=== PATIENT | male | born 1935 | race Caucasian/White ===

== ENCOUNTER → 2016-07-19 | Outpatient (CLI) | payer OTHER ==
[~2016-07-19] MED LIST: CALC-20 PO; SULF500T36 PO
[2016-07-19 12:14] LABS: BASO % 0.3 %; BASO ABS # 0.02 K/uL (0-0.2); COMPLETE YES; EOS % 1.5 %; HEMATOCRIT 42.7 % (42-52); IG% 0.3 %; LYMPH % 24.3 %; LYMPH ABS # 1.47 K/uL (1.2-3.4); MEAN CELL VOLUME 92.4 fL (80-100); MEAN CORPUSCULAR HEMOGLOBIN 31.8 pg (25-34); MEAN CORPUSCULAR HGB CONC 34.4 g/dl (32-36); MONO % 13.9 %; NEUT % 59.7 %; PLATELET COUNT 142 K/uL (130-400); RED BLOOD COUNT 4.62 M/uL (4.7-6.1); WHITE BLOOD COUNT 6.04 K/uL (4.8-10.8)
[2016-07-19 12:25] LABS: BLOOD UREA NITROGEN 14 mg/dl (7-18); BUN/CREATININE RATIO 14.8 (10-20); CARBON DIOXIDE 28 mmol/L (21-32); CHLORIDE 104 mmol/L (98-107); CREATININE 0.95 mg/dl (0.60-1.40); GLUCOSE 129 mg/dl (70-99); SODIUM 141 mmol/L (136-145)
[2016-07-19 12:35] LABS: CALCIUM 9.3 mg/dl (8.5-10.1)
== END | disposition home or self-care (01) ==
LOC: C.LABBFT 09:47
PROVIDERS: ATTEND Internal Medicine
DX: I10 Essential (primary) hypertension (principal)

== ENCOUNTER → 2017-05-16 | Outpatient (CLI) | payer OTHER ==
[2017-05-16 12:41] LABS: BASO % 0.3 %; BASO ABS # 0.02 K/uL (0-0.2); EOS % 1.2 %; EOS ABS # 0.07 K/uL (0-0.5); HEMOGLOBIN 14.9 g/dL (14.0-18.0); IG# 0.01 K/uL (0.00-0.02); LYMPH % 26.6 %; LYMPH ABS # 1.54 K/uL (1.2-3.4); MEAN CELL VOLUME 92.2 fL (80-100); MEAN CORPUSCULAR HEMOGLOBIN 31.2 pg (25-34); MEAN CORPUSCULAR HGB CONC 33.9 g/dl (32-36); MEAN PLATELET VOLUME 10.1 fL (7.4-10.4); MONO % 13.1 %; MONO ABS # 0.76 K/uL (0.11-0.59); NEUT % 58.6 %; NEUT ABS # 3.38 K/uL (1.4-6.5); PLATELET COUNT 131 K/uL (130-400); RED CELL DISTRIBUTION WIDTH CV 13.5 % (11.5-14.5); RED CELL DISTRIBUTION WIDTH SD 45.4 fL (36.4-46.3); WHITE BLOOD COUNT 5.78 K/uL (4.8-10.8)
[2017-05-16 12:50] LABS: BLOOD UREA NITROGEN 21 mg/dl (7-18); CALCIUM 9.9 mg/dl (8.5-10.1); CARBON DIOXIDE 28 mmol/L (21-32); CREATININE 1.15 mg/dl (0.60-1.40); GLUCOSE 119 mg/dl (70-99); POTASSIUM 4.3 mmol/L (3.5-5.1); SODIUM 138 mmol/L (136-145)
[2017-05-16 12:55] LABS: HEMOGLOBIN A1C 5.6 % (4.5-5.6)
[2017-05-16 13:08] LABS: CHOLESTEROL 137 mg/dl (0-200); LDL CHOLESTEROL CALCULATED 73 mg/dl
== END | disposition home or self-care (01) ==
LOC: C.LABBFT 09:40
PROVIDERS: ATTEND Internal Medicine
DX: I10 Essential (primary) hypertension (principal)

== ENCOUNTER 2018-04-08 12:31 | Observation (INO) ==
[2018-04-08 13:30] LABS: Basophils # (auto) 0.01 K/uL (0-0.2); Basophils % (auto) 0.2 %; Eosinophils # (auto) 0.08 K/uL (0-0.5); Eosinophils % (auto) 1.3 %; Hematocrit (blood only) 40.2 % (42-52); Hemoglobin 13.9 g/dL (14.0-18.0); Immature Granulocytes # (auto) 0.01 K/uL (0.00-0.02); Immature Granulocytes % (auto) 0.2 %; Lymphocytes # (auto) 1.14 K/uL (1.2-3.4); Mean Corpuscular Hgb Conc 34.6 g/dL (32-36); Mean Corpuscular Volume 93.5 fL (80-100); Mean Platelet Volume 9.6 fL (7.4-10.4); Monocytes # (auto) 0.87 K/uL (0.11-0.59); Monocytes % (auto) 14.5 %; Neutrophils # (auto) 3.89 K/uL (1.4-6.5); Neutrophils % (auto) 64.8 %; Platelet Count 129 K/uL (130-400); RDW Coefficient of Variation 13.3 % (11.5-14.5); RDW Standard Deviation 45.6 fL (36.4-46.3)
--- NOTE | 2018-04-08 13:37 | CT Scan Report ---
CT head/brain wo con CLINICAL HISTORY: Stroke evaluation COMPARISON STUDY: 03/15/2015 TECHNIQUE: Axial CT of the brain is performed from the vertex to the skull base. IV contrast was not administered for this examination. A dose lowering technique was utilized adhering to the principles of ALARA. CT DOSE: 537.48 mGy.cm FINDINGS: No intra or extra-axial mass lesions are visualized. There is no CT evidence of acute cortical infarc tion. There is no evidence of midline shift. There is no acute hemorrhage. No calvarial fractures ar e visualized. There are patchy white matter hypodensities likely on a small vessel basis. There is no evidence of pathologic ventricular dilatation. There is no evidence of acute sinusitis IMPRESSION: No acute intracranial findings Electronically signed by: Jalen Hurd M.D. 04/08/2018 1:35 PM
[2018-04-08 13:40] LABS: INR 1.1 (0.9-1.1); Partial Thromboplastin Time 25.9 Seconds (21.0-31.0); Prothrombin Time 11.4 Seconds (9.0-12.0)
[2018-04-08 13:48] LABS: Alanine Aminotransferase 27 U/L (12-78); Albumin Level 3.9 gm/dl (3.4-5.0); Aspartate Aminotransferase 22 U/L (15-37); BUN Creatinine Ratio 14.4 (10-20); Bilirubin Direct 0.2 mg/dl (0-0.2); Blood Urea Nitrogen 15 mg/dl (7-18); Calcium 8.5 mg/dl (8.5-10.1); Carbon Dioxide 30 mmol/L (21-32); Chloride 103 mmol/L (98-107); Creatinine Clr Calc Pharmacy 63.4 ml/min; Est GFR (African American) 75.2; Est GFR (Non-African American) 64.9; Glucose 160 mg/dl (70-99); Magnesium 2.1 mg/dl (1.8-2.4); Potassium 3.6 mmol/L (3.5-5.1); Sodium 139 mmol/L (136-145)
--- NOTE | 2018-04-08 13:48 | XRay Report ---
XR chest 1V portable HISTORY: 82 years-old Male left sided numbness acute atypical chest pain with left-sided numbness COMPARISON: Scapula radiographs 09/26/2011 TECHNIQUE: Portable AP view of the chest FINDINGS: Cardiac silhouette is mildly enlarged. Mild pulmonary vascular congestion with calcification of the t horacic aortic arch. No pneumothorax, pleural effusion or overt pulmonary edema. Subsegmental bibasil ar opacities suggest atelectasis. Degenerative changes of the shoulders and spine. IMPRESSION: Cardiomegaly with mild pulmonary vascular congestion. The above report was generated using voice recognition software. It may contain grammatical, syntax o r spelling errors. Electronically signed by: Gabriel Toscano M.D. 04/08/2018 1:47 PM
[2018-04-08 13:53] LABS: Alkaline Phosphatase 56 U/L (45-117); Bilirubin,Total 0.8 mg/dl (0.2-1); Total Protein 7.4 gm/dl (6.4-8.2); Troponin I < 0.015 ng/ml (0-0.045)
--- NOTE | 2018-04-08 17:08 | History & Physical Report ---
Date of Service April 08, 2018 Assessment & Plan (1) Neurological symptoms: - Admit to same day surgery center with tele for observation - Check B12, folate and Lymes - Neuro consultation for further workup and recs - CT head is negative for acute findings, neuro exam is without acute findings. Consider MRI brain if neurological changes/sx worsen. - EKG reviewed and is negative. - Initial troponin is negative, will check one more set to r/o cardiac involvement. no cardiac sx to warrant echo at this time. (2) HTN (hypertension): - BP slightly elevated due to anxiety from being in hospital setting, continue indapamide 1.25 mg daily, controls BP well as an outpatient per record review. (3) Polyneuropathy: - Minimal symptoms but occasionally has numbness in his feet, the sensation which he complains of upon admission is not the same. - Does not use assistive devices for ambulation, lives independently - PT/OT consults (4) Hx of prostatic malignancy: - 10 years ago, s/p external beam radiation and radioactive seed implantation. No lower urinary tract sx. - PSA followed as outpatient, last was 0.022. 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 Pt is unable to clearly describe how he feels, but notes feeling extremely anxious and worried a few times earlier this morning and thought he needed to be seen. The sensation seems to come and go slightly, and is present during my exam. He denies pain, tingling, burning, itching, numbness or weakness. Pt was in his normal state of health and went to a store yesterday. He typically walks the inside perimeter of a large grocery-like store on a daily basis but did not today. He notes this strange sensation happened once many years ago, and that a complete workup was negative. He follows closely with his PCP, Dr. Panda as an outpatient. He denies any other acute symptoms but is wishing to stay in the hospital overnight for monitoring. Imaging is negative for acute findings. His vitals are fairly stable except for slightly elevated BP. BMP is essentially unremarkable. CBC is also WNL. Allergies Allergy/AdvReac Type Severity Reaction Status Date / Time No Known Allergies Allergy Unverified 04/08/18 13:26 Home Medications Home Medications Medication Instructions Recorded Confirmed Type calcium carbonate-vitamin D3 1 tab PO DAILY 04/08/18 04/08/18 History [Calcium 600 + D(3)] celecoxib [Celebrex] 200 mg PO DAILY 04/08/18 04/08/18 History indapamide 1.25 mg PO QAM 04/08/18 04/08/18 History sulfasalazine 2,000 mg PO BID 04/08/18 04/08/18 History Past Med/Surg History Medical History Regional colitis Lumbosacral radiculopathy Hx of prostatic malignancy Polyneuropathy HTN (hypertension) Neurological symptoms (Acute) HTN (hypertension) (Chronic) Chest pain (Resolved) Surgical History History of tonsillectomy and adenoidectomy Hx of cataract surgery Family History Mother HX: breast cancer Father DM II (diabetes mellitus, type II), controlled Benign essential HTN Social History Feels Safe at Home: Yes Smoking Status: Former smoker Review of Systems All systems reviewed & are unremarkable except as noted in HPI & below Neurologic: no gait abnormality, no unsteadiness, no falls, no generalized weakness, no paralysis, no numbness, no radiating pain, no tremor(s), no abnormal movements, no seizure-like activity, no dizziness, no syncope, no headache(s) and no abnormal speech Physical Exam 2 Vital Signs (Past 24 Hours): Last Vital Signs Temp 36.3 C L 04/08/18 12:48 Pulse 65 04/08/18 16:02 Resp 17 04/08/18 16:02 BP 181/91 H 04/08/18 16:02 Pulse Ox 98 04/08/18 16:02 Physical Exam: General: awake, alert, no apparent distress Head: Normocephalic, atraumatic ENT: PERRL, EOMI, no pharyngeal exudate, mucous membranes moist Chest: Clear to auscultation, on room air, no adventitious breath sounds Cardiac: Regular rate and rhythm, no murmur, no JVD, normal peripheral pulses, good capillary refill Abdominal: NABS x 4 quadrants, soft, nontender to palpation, no rebound, guarding or tenderness Extremities: Normal inspection, no peripheral edema or erythema, calfs nontender to palpation Psych: Normal mood and affect Neuro: AAO x 3, strength intact bilaterally and related 5/5, no motor deficits, speech is clear, no peripheral sensory deficits Constitutional: WD/WN, vitals as above Eyes: normal visual desir by confrontation and + anicteric sclerae Neck: normal visual inspection and trachea midline Respiratory: normal respiratory effort, lungs clear to auscultation Cardiovascular: Rate/Rhythm: regular rate and regular rhythm Gastrointestinal (Abdomen): Inspection/Auscultation: abdomen not distended Percussion/Palpation: abdomen soft; abdomen nontender Musculoskeletal: Head/Neck/Chest: normocephalic and head atraumatic Neg for peripheral LE edema, + pedal pulses Skin: no rashes, warm and dry Neurologic: awake; not confused Speech / Cognition: normal speech Psychiatric: A+Ox3, euthymic affect Lymphatic: Exam as done by Catarina Bajwa DO Results & Data Diagnostic Findings CT head/brain wo con CLINICAL HISTORY: Stroke evaluation COMPARISON STUDY: 03/15/2015 TECHNIQUE: Axial CT of the brain is performed from the vertex to the skull base. IV contrast was not administered for this examination. A dose lowering technique was utilized adhering to the principles of ALARA. CT DOSE: 537.48 mGy.cm FINDINGS: No intra or extra-axial mass lesions are visualized. There is no CT evidence of acute cortical infarction. There is no evidence of midline shift. There is no acute hemorrhage. No calvarial fractures are visualized. There are patchy white matter hypodensities likely on a small vessel basis. There is no evidence of pathologic ventricular dilatation. There is no evidence of acute sinusitis IMPRESSION: No acute intracranial findings XR chest 1V portable HISTORY: 82 years-old Male left sided numbness acute atypical chest pain with left-sided numbness COMPARISON: Scapula radiographs 09/26/2011 TECHNIQUE: Portable AP view of the chest FINDINGS: Cardiac silhouette is mildly enlarged. Mild pulmonary vascular congestion with calcification of the thoracic aortic arch. No pneumothorax, pleural effusion or overt pulmonary edema. Subsegmental bibasilar opacities suggest atelectasis. Degenerative changes of the shoulders and spine. IMPRESSION: Cardiomegaly with mild pulmonary vascular congestion. ECG Additional Comments: 08-APR-2018 13:24:18 [facility] Normal sinus rhythm Left axis deviation Abnormal ECG When compared with ECG of 16-MAR-2015 06:16, No significant change was found Vent. rate 74 BPM SD interval 162 ms QRS duration 90 ms QT/QTc 406/450 ms P-R-T axes 61 -38 51 Code Status & VTE Plan Code Status FULL Supervising Physician Co-Signing Physician Notes Pt seen and examined by me. Denies chest pain or SOB. Tolerating PO without issue. Sx are hard for pt to explain. Specifically it is not numbness, tingling , itching, burning, or pain. It is mostly L UE/LE and occasionally radiates to his L side of face. No weakness. Started this AM. "It just feels not right." Hx of same sx 2 years ago with neg work-up. Pt cannot tell me how long these sx lasted last time, however he was not admitted to the hospital. States MRI, carotid US, labs were all WNL. Agree with HPI/ROS as noted by PA See above for my exam in PE section Agree with plan as outlined above Abnormal UE/LE, facial sx CT head neg MRI pending Lyme, B12, folate pending Neuro c/s
[2018-04-08] MEDS ORDERED: ONDANSETRON INJ 2 MG/ML 2 ML VIAL IV PRN (20:42)
[2018-04-08] MEDS ORDERED: ACETAMINOPHEN 325 MG TAB PO PRN (20:42)
[2018-04-08] MEDS ORDERED: ENOXAPARIN INJ 40 MG/0.4 ML SYR SQ SCH (21:30)
--- NOTE | 2018-04-08 21:34 | Emergency Department Note ---
Entered by Brandy Zamora acting as a scribe for Janes Castillo DO History of Present Illness General Chief complaint: Neuro Symptoms/Deficit Stated complaint: UNEASY FEELING ON L SIDE Source: patient History of Present Illness Provider complaint: tingling to the left side of his body Onset (ago): hour(s) (early this morning) Location: face, upper extremity, lower extremity and left Severity: similar to prior episodes Quality: + other (tingling) Associated symptoms: no chest pain, no nausea/vomiting, no shortness of breath and no weakness The patient is an 82 year old male who presents to the Emergency Room with complaints of tingling to the left side of his body beginning early this morning. The patient states that he thinks he was last normal when he went to bed last night. He reports having tingling in his left arm, left leg, and left cheek. The patient denies having nausea, vomiting, chest pain, shortness of breath, and weakness in his arms and legs. He states that he had similar symptoms 2-3 years ago and had tests done. The patient reports that he takes medication for hypertension. He states that he is walking normally and states that his speech has been normal. Home Medications Home Medications Medication Instructions Recorded Confirmed Type calcium carbonate-vitamin D3 1 tab PO DAILY 04/08/18 04/08/18 History [Calcium 600 + D(3)] celecoxib [Celebrex] 200 mg PO DAILY 04/08/18 04/08/18 History indapamide 1.25 mg PO QAM 04/08/18 04/08/18 History sulfasalazine 2,000 mg PO BID 04/08/18 04/08/18 History Allergies Allergy/AdvReac Type Severity Reaction Status Date / Time No Known Allergies Allergy Unverified 04/08/18 13:26 Past Med/Surg History Medical History Regional colitis Lumbosacral radiculopathy Hx of prostatic malignancy Polyneuropathy HTN (hypertension) Neurological symptoms (Acute) HTN (hypertension) (Chronic) Chest pain (Resolved) Surgical History History of tonsillectomy and adenoidectomy Hx of cataract surgery Family History Mother HX: breast cancer Father DM II (diabetes mellitus, type II), controlled Benign essential HTN Social History Current Living Situation: Alone Other Information That Helps Us Care for You: No Feels Safe at Home: Yes Safety Concerns: Feels Safe At This Time Smoking Status: Never smoker Hx Alcohol Use: Yes Alcohol Intake Frequency: holidays/special occasions only Hx Substance Use: No Beliefs That Will Affect Care: None Preferred Language: Tajik Communication Ability: Effective Assistant Sales Manager Required: No Review of Systems See HPI for pertinent positives & negatives. and A total of 10 systems reviewed and were otherwise negative Physical Exam Vital Signs Vital Signs - 24 hr 04/08/18 12:48 04/08/18 13:37 04/08/18 16:02 Temperature 36.3 C L Temperature Source Oral Sepsis Recent Fever Within 48 Hours No Sepsis Action Taken by Nursing No Action Required Pulse Rate 83 Pulse Rate [Apical] 71 65 Pulse Rate [Right Finger] Pulse Rhythm [Apical] Respiratory Rate 16 16 17 Respiratory Effort / Characteristics Respiratory Depth Respiratory Pattern Blood Pressure 159/80 H Blood Pressure [Left Arm] Blood Pressure [Right Arm] 156/80 H 181/91 H Blood Pressure Mean 106 Blood Pressure Mean [Left Arm] Blood Pressure Mean [Right Arm] 105 121 Blood Pressure Position Sitting Blood Pressure Position [Left Arm] Blood Pressure Position [Right Arm] Pulse Oximetry 97 98 Oxygen Delivery Method Room Air Room Air 04/08/18 18:46 04/08/18 19:10 04/08/18 20:00 Temperature 36.7 C Temperature Source Oral Sepsis Recent Fever Within 48 Hours Sepsis Action Taken by Nursing Pulse Rate Pulse Rate [Apical] 75 79 78 Pulse Rate [Right Finger] Pulse Rhythm [Apical] Regular Respiratory Rate 14 14 Respiratory Effort / Characteristics Non-Labored Spontaneous Non-Labored Respiratory Depth Normal Normal Respiratory Pattern Regular Regular Blood Pressure Blood Pressure [Left Arm] Blood Pressure [Right Arm] 155/86 H 157/89 H 164/82 H Blood Pressure Mean Blood Pressure Mean [Left Arm] Blood Pressure Mean [Right Arm] 109 111 109 Blood Pressure Position Blood Pressure Position [Left Arm] Blood Pressure Position [Right Arm] Sitting Sitting Pulse Oximetry 96 97 94 Oxygen Delivery Method Room Air Room Air Room Air 04/08/18 23:48 04/09/18 04:00 04/09/18 06:48 Temperature 36.6 C 36.7 C 36.5 C Temperature Source Oral Oral Oral Sepsis Recent Fever Within 48 Hours Sepsis Action Taken by Nursing Pulse Rate Pulse Rate [Apical] Pulse Rate [Right Finger] 85 75 77 Pulse Rhythm [Apical] Respiratory Rate 20 20 18 Respiratory Effort / Characteristics Respiratory Depth Respiratory Pattern Blood Pressure Blood Pressure [Left Arm] 159/77 H 156/71 H 141/69 H Blood Pressure [Right Arm] Blood Pressure Mean Blood Pressure Mean [Left Arm] 104 99 93 Blood Pressure Mean [Right Arm] Blood Pressure Position Blood Pressure Position [Left Arm] Lying Lying Blood Pressure Position [Right Arm] Pulse Oximetry 97 95 93 Oxygen Delivery Method Room Air Room Air Room Air GENERAL: Patient is awake, alert, and in no acute distress.Patient is resting comfortably and showing no signs of anxiety EYES: The conjunctivae are clear. The pupils are round and reactive. EARS, NOSE, MOUTH AND THROAT: The nose is without any evidence of any deformity. Mucous membranes are moist.Tongue is midline NECK: The neck is nontender and supple. RESPIRATORY: Normal respiratory effort is noted. There is no evidence of wheezing rhonchi or rales to auscultation. CARDIOVASCULAR: Regular rate and rhythm noted. There no murmurs rubs or gallops normal S1 normal S2 GASTROINTESTINAL: The abdomen is soft. Bowel sounds are present in all quadrants. Abdomen is nontender. MUSCULOSKELETAL/EXTREMITIES: There is no evidence of gross deformity. Full range of motion is noted in the hips and shoulders. SKIN: There is no obvious evidence of any rash. There are no petechiae, pallor or cyanosis noted. NEUROLOGIC: Patient is awake alert and oriented x3. Strength is symmetric. Patellar reflexes are 2+ bilaterally. Course 1316: Past medical records reviewed. The patient was evaluated in room C10, and a complete history and physical examination were performed. 1546: I updated the patient. 1559: I checked on the patient. 1612: I discussed the patient's case with Dr. Ellis who said that he will call me back. 1650: I discussed the patient's case with Dr. Shanice Ramsey who will evaluate the patient for further management. Consultations Consultation #1: Dr. Ellis Time: 16:12 Consultation #2: Dr. Shanice Ramsey Time: 16:50 Administered Medications Celecoxib (Celebrex) 200 mg PO DAILY [facility] Stop: 05/09/18 08:59 Last Admin: 04/09/18 08:32 Dose: 200 mg Enoxaparin Sodium (Lovenox) 40 mg SQ Q24H [facility] Stop: 05/08/18 21:29 Last Admin: 04/08/18 22:25 Dose: 40 mg Indapamide (Lozol) 1.25 mg PO QAM [facility] Stop: 05/09/18 08:59 Last Admin: 04/09/18 08:31 Dose: 1.25 mg Multivitamins/Minerals (Caltrate Plus) 1 tab PO DAILY [facility] Stop: 05/09/18 08:59 Last Admin: 04/09/18 08:31 Dose: 1 tab Sulfadiazine (Azulfidine) 2,000 mg PO BID [facility] Stop: 05/08/18 20:59 Last Admin: 04/09/18 08:32 Dose: 2,000 mg Admin: 04/08/18 22:22 Dose: 2,000 mg Medical Decision Making Differential Diagnosis Differentials include: ICH, CVA, PNA, bronchitis, PE, UTI, gastroenteritis, electrolyte abnormality, ACS, CHF among others. Medical Records Attestation: I reviewed the patient's medical records. Home Medications Current Medication List: was personally reviewed by me Laboratory Data Attestation: I reviewed the patient's lab results. Result diagrams: 04/09/18 06:27 04/09/18 06:27 Lab Results 04/08/18 04/08/18 04/08/18 Range/Units 13:15 13:15 13:15 WBC 6.00 (4.8-10.8) K/uL RBC 4.30 L (4.7-6.1) M/uL Hgb 13.9 L (14.0-18.0) g/dL Hct 40.2 L (42-52) % MCV 93.5 (80-100) fL MCH 32.3 (25-34) pg MCHC 34.6 (32-36) g/dL RDW Std Deviation 45.6 (36.4-46.3) fL RDW Coeff of Aditya 13.3 (11.5-14.5) % Plt Count 129 L (130-400) K/uL MPV 9.6 (7.4-10.4) fL Immature Gran % (Auto) 0.2 % Neut % (Auto) 64.8 % Lymph % (Auto) 19.0 % [place] % (Auto) 14.5 % Eos % (Auto) 1.3 % Baso % (Auto) 0.2 % Immature Gran # (Auto) 0.01 (0.00-0.02) K/uL Neut # (Auto) 3.89 (1.4-6.5) K/uL Lymph # (Auto) 1.14 L (1.2-3.4) K/uL [place] # (Auto) 0.87 H (0.11-0.59) K/uL Eos # (Auto) 0.08 (0-0.5) K/uL Baso # (Auto) 0.01 (0-0.2) K/uL PT 11.4 (9.0-12.0) Seconds INR 1.1 (0.9-1.1) APTT 25.9 (21.0-31.0) Seconds PTT Ratio 1.0 Sodium 139 (136-145) mmol/L Potassium 3.6 (3.5-5.1) mmol/L Chloride 103 (98-107) mmol/L Carbon Dioxide 30 (21-32) mmol/L Anion Gap 6.0 (3-11) BUN 15 (7-18) mg/dl Creatinine 1.05 (0.6-1.4) mg/dl Est Cr Clr Drug Dosing 63.4 ml/min Est GFR ( Amer) 75.2 Est GFR (Non-Af Amer) 64.9 BUN/Creatinine Ratio 14.4 (10-20) Glucose 160 H (70-99) mg/dl Calcium 8.5 (8.5-10.1) mg/dl Magnesium 2.1 (1.8-2.4) mg/dl Total Bilirubin 0.8 (0.2-1) mg/dl Direct Bilirubin 0.2 (0-0.2) mg/dl AST 22 (15-37) U/L ALT 27 (12-78) U/L Alkaline Phosphatase 56 (45-117) U/L Troponin I < 0.015 (0-0.045) ng/ml Total Protein 7.4 (6.4-8.2) gm/dl Albumin 3.9 (3.4-5.0) gm/dl Globulin (2.5-4.0) gm/dl Albumin/Globulin Ratio (0.9-2) Vitamin B12 (211-911) pg/ml Folate (>5.38) ng/ml Lyme Disease IgG Ab (Negative) Lyme Disease IgM Ab (Negative) 04/08/18 04/08/18 04/08/18 Range/Units 20:50 20:50 20:50 WBC (4.8-10.8) K/uL RBC (4.7-6.1) M/uL Hgb (14.0-18.0) g/dL Hct (42-52) % MCV (80-100) fL MCH (25-34) pg MCHC (32-36) g/dL RDW Std Deviation (36.4-46.3) fL RDW Coeff of Aditya (11.5-14.5) % Plt Count (130-400) K/uL MPV (7.4-10.4) fL Immature Gran % (Auto) % Neut % (Auto) % Lymph % (Auto) % [place] % (Auto) % Eos % (Auto) % Baso % (Auto) % Immature Gran # (Auto) (0.00-0.02) K/uL Neut # (Auto) (1.4-6.5) K/uL Lymph # (Auto) (1.2-3.4) K/uL [place] # (Auto) (0.11-0.59) K/uL Eos # (Auto) (0-0.5) K/uL Baso # (Auto) (0-0.2) K/uL PT (9.0-12.0) Seconds INR (0.9-1.1) APTT (21.0-31.0) Seconds PTT Ratio Sodium (136-145) mmol/L Potassium (3.5-5.1) mmol/L Chloride (98-107) mmol/L Carbon Dioxide (21-32) mmol/L Anion Gap (3-11) BUN (7-18) mg/dl Creatinine (0.6-1.4) mg/dl Est Cr Clr Drug Dosing ml/min Est GFR ( Amer) Est GFR (Non-Af Amer) BUN/Creatinine Ratio (10-20) Glucose (70-99) mg/dl Calcium (8.5-10.1) mg/dl Magnesium (1.8-2.4) mg/dl Total Bilirubin (0.2-1) mg/dl Direct Bilirubin (0-0.2) mg/dl AST (15-37) U/L ALT (12-78) U/L Alkaline Phosphatase (45-117) U/L Troponin I < 0.015 (0-0.045) ng/ml Total Protein (6.4-8.2) gm/dl Albumin (3.4-5.0) gm/dl Globulin (2.5-4.0) gm/dl Albumin/Globulin Ratio (0.9-2) Vitamin B12 307 (211-911) pg/ml Folate 10.00 (>5.38) ng/ml Lyme Disease IgG Ab Negative (Negative) Lyme Disease IgM Ab Negative (Negative) 04/09/18 04/09/18 Range/Units 06:27 06:27 WBC 5.87 (4.8-10.8) K/uL RBC 4.18 L (4.7-6.1) M/uL Hgb 13.2 L (14.0-18.0) g/dL Hct 39.4 L (42-52) % MCV 94.3 (80-100) fL MCH 31.6 (25-34) pg MCHC 33.5 (32-36) g/dL RDW Std Deviation 46.3 (36.4-46.3) fL RDW Coeff of Aditya 13.5 (11.5-14.5) % Plt Count 136 (130-400) K/uL MPV 9.7 (7.4-10.4) fL Immature Gran % (Auto) % Neut % (Auto) % Lymph % (Auto) % [place] % (Auto) % Eos % (Auto) % Baso % (Auto) % Immature Gran # (Auto) (0.00-0.02) K/uL Neut # (Auto) (1.4-6.5) K/uL Lymph # (Auto) (1.2-3.4) K/uL [place] # (Auto) (0.11-0.59) K/uL Eos # (Auto) (0-0.5) K/uL Baso # (Auto) (0-0.2) K/uL PT (9.0-12.0) Seconds INR (0.9-1.1) APTT (21.0-31.0) Seconds PTT Ratio Sodium 142 (136-145) mmol/L Potassium 3.4 L (3.5-5.1) mmol/L Chloride 106 (98-107) mmol/L Carbon Dioxide 30 (21-32) mmol/L Anion Gap 6.0 (3-11) BUN 17 (7-18) mg/dl Creatinine 1.03 (0.6-1.4) mg/dl Est Cr Clr Drug Dosing 63.7 ml/min Est GFR ( Amer) 77.0 Est GFR (Non-Af Amer) 66.4 BUN/Creatinine Ratio 16.1 (10-20) Glucose 131 H (70-99) mg/dl Calcium 8.6 (8.5-10.1) mg/dl Magnesium (1.8-2.4) mg/dl Total Bilirubin 0.7 (0.2-1) mg/dl Direct Bilirubin 0.2 (0-0.2) mg/dl AST 19 (15-37) U/L ALT 22 (12-78) U/L Alkaline Phosphatase 49 (45-117) U/L Troponin I (0-0.045) ng/ml Total Protein 6.9 (6.4-8.2) gm/dl Albumin 3.5 (3.4-5.0) gm/dl Globulin 3.4 (2.5-4.0) gm/dl Albumin/Globulin Ratio 1.0 (0.9-2) Vitamin B12 (211-911) pg/ml Folate (>5.38) ng/ml Lyme Disease IgG Ab (Negative) Lyme Disease IgM Ab (Negative) Imaging Data Radiologist's Impression: Radiology results as stated below per my review and the radiologist's interpretation: XR chest 1V portable HISTORY: 82 years-old Male left sided numbness acute atypical chest pain with left-sided numbness COMPARISON: Scapula radiographs 09/26/2011 TECHNIQUE: Portable AP view of the chest FINDINGS: Cardiac silhouette is mildly enlarged. Mild pulmonary vascular congestion with calcification of the thoracic aortic arch. No pneumothorax, pleural effusion or overt pulmonary edema. Subsegmental bibasilar opacities suggest atelectasis. Degenerative changes of the shoulders and spine. IMPRESSION: Cardiomegaly with mild pulmonary vascular congestion. The above report was generated using voice recognition software. It may contain grammatical, syntax or spelling errors. Electronically signed by: Gabriel Toscano M.D. 04/08/2018 1:[address] head/brain wo con CLINICAL HISTORY: Stroke evaluation COMPARISON STUDY: 03/15/2015 TECHNIQUE: Axial CT of the brain is performed from the vertex to the skull base. IV contrast was not administered for this examination. A dose lowering technique was utilized adhering to the principles of ALARA. CT DOSE: 537.48 mGy.cm FINDINGS: No intra or extra-axial mass lesions are visualized. There is no CT evidence of acute cortical infarction. There is no evidence of midline shift. There is no acute hemorrhage. No calvarial fractures are visualized. There are patchy white matter hypodensities likely on a small vessel basis. There is no evidence of pathologic ventricular dilatation. There is no evidence of acute sinusitis IMPRESSION: No acute intracranial findings Electronically signed by: Jalen Hurd M.D. 04/08/2018 1:35 PM Blood Pressure Blood Pressure Findings: Elevated blood pressure Blood Pressure Disposition: further management by hospitalist JACQUELINE Candelario The patient is an 82-year-old male who presented to the emergency department with an acute neurologic syndrome. The patient was complaining of left-sided numbness. This included his face his arm and his leg. He had a neurologic distribution which could be consistent with a central nervous system lesion. I discussed the patient's laboratory and radiographic studies with him. There is no acute abnormality noted on CAT scan. The patient's symptoms remain significantly unchanged throughout his entire stay. The patient awoke with the symptoms and he was not a candidate for TPA. The patient had similar symptoms in 2016 I did review the patient's inpatient stay from that time. He had an MRI which did not show any acute disease and also had carotid Dopplers which showed diffuse plaquing however no hemodynamic significant lesions. I discussed the patient's case with his primary care physician. I also discussed his case with the on-call [facility] hospitalist. The patient will be kept for further testing and possible further neuroimaging. The patient was agreeable to this plan. Impression & Plan Neurological symptoms Discharge Plan Visit Data *Final* Discharge Date/Time: 04/08/18 20:15 Chief Complaint: Neuro Symptoms/Deficit Stated Complaint: UNEASY FEELING ON L SIDE ED Provider: Janes Castillo Discharge Problem: Neurological symptoms Patient Disposition: Admitted As Inpatient Discharge Instructions Interventions: ED Discharge Assessment Last Done: 04/08/18 20:15 The scribe's documentation has been prepared under my direction and personally reviewed by me in its entirety. I confirm that the note above accurately reflects all work, treatment, procedures, and medical decision making performed by me.
[2018-04-08] MEDS: sulfaSALAzine 500 MG TABLET PO SCH (22:22)
[2018-04-08] MEDS ORDERED: PNEUMOCOCCAL POLYSACCHARIDES 25 MCG/0.5 ML VIAL/SYR IM ONE (22:45)
[2018-04-08] MEDS ORDERED: PNEUMOCOCCAL ADMINISTRATION CHARGE ONE (22:45)
[2018-04-08 23:09] LABS: Lyme Ab IgG w/WB Rflx Negative (Negative); Lyme Ab IgM w/WB Rflx Negative (Negative)
[2018-04-09 07:17] LABS: Hematocrit (blood only) 39.4 % (42-52); Hemoglobin 13.2 g/dL (14.0-18.0); Mean Corpuscular Hgb Conc 33.5 g/dL (32-36); Mean Corpuscular Volume 94.3 fL (80-100); Mean Platelet Volume 9.7 fL (7.4-10.4); Platelet Count 136 K/uL (130-400); RDW Coefficient of Variation 13.5 % (11.5-14.5); RDW Standard Deviation 46.3 fL (36.4-46.3); Red Blood Count 4.18 M/uL (4.7-6.1); White Blood Count 5.87 K/uL (4.8-10.8)
[2018-04-09 07:48] LABS: Albumin Level 3.5 gm/dl (3.4-5.0); BUN Creatinine Ratio 16.1 (10-20); Bilirubin Direct 0.2 mg/dl (0-0.2); Calcium 8.6 mg/dl (8.5-10.1); Creatinine Clr Calc Pharmacy 63.7 ml/min; Est GFR (Non-African American) 66.4; Potassium 3.4 mmol/L (3.5-5.1)
[2018-04-09 07:51] LABS: Bilirubin,Total 0.7 mg/dl (0.2-1); Globulin 3.4 gm/dl (2.5-4.0); Total Protein 6.9 gm/dl (6.4-8.2)
--- NOTE | 2018-04-09 08:12 | Neurology Consultation ---
Date of Consultation April 09, 2018 Assessment & Plan (1) Neurological symptoms: Patient had the onset of left-sided dysesthesias including most of the left side of the body particularly from the neck down. However it involves the left cheek as well. On examination today, he has no dysesthesias, subjective symptoms of a new nature, or any deficits on neurologic exam. He has no encephalopathy or meningeal signs. The etiology of this is probably vascular and I cannot exclude a small CVA, however, this is likely a TIA. He has significant risk factors for stroke including hypertension and his longstanding (albeit remote) history of heavy cigarette smoking. 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 (2) Polyneuropathy: Patient has a history of polyneuropathy by EMG in 2016. He has signs of a sensory polyneuropathy of a mild nature on examination involving large greater than small caliber sensory fibers. (3) Lumbosacral radiculopathy: Patient has a history of left S1 radiculopathy in August 2016. He does not have any radicular symptoms now. He does have a history of a the significant degenerative changes of the cervical spine by MRI in 2016 but he has no signs of myelopathy or a cervical spine origin to his recent symptoms. The presence of a polyneuropathy, however, could mask upper motor neuron signs. Recommendations: 1. Obtain MRI of the brain without contrast to evaluate for stroke and compare to previous study of 2016 for his diffuse small vessel ischemia. 2. 81 milligram aspirin tablet daily. 3. Control blood pressure as you are doing. 4. Consider fasting lipid profile 5. If the patient has any significant changes on MRI compared to 2016, or a new stroke, I would consider echocardiogram and evaluation of the vessels of the head and neck. 6. Increase activity as able. 7. Consider obtaining TSH and PSA Overall, I spent a total of 75 minutes with this case including review of records, review of MRI films from 2016, direct evaluation the patient at bedside , and discussion of the case with the patient at bedside, clinical staff, and Dr. Fraga including differential diagnosis and treatment options. History of Present Illness Reason for Consultation: Patient is an 82 year old, who I was asked to see the request of Dr. Bajwa, for neurologic evaluation regarding left-sided dysesthesias. Requesting Physician: Dr. Bajwa Attending Physician: Elroy Fraga MD History of Present Illness Patient has a history of prostate cancer about 10 years ago treated by seed implant and radiation therapy. Around that time he had the onset of colitis. He has a history of hypertension (but he is not sure how long). He thinks it is more recent. He was a very heavy cigarette smoker in past quitting about 40 years ago. Patient has had an episode of chest pain with left face and hand tingling in February of 2015. At that time, an MRI of the brain was remarkable for moderate generalized atrophy as well as moderate nonspecific old small vessel ischemia scattered diffusely bilaterally. Carotid ultrasound was unremarkable. He was discharged but was never put on any antiplatelet medication. In August of 2015 I performed EMG and nerve conduction studies which showed a mild underlying polyneuropathy and a chronic left S1 radiculopathy. He does not have any radicular symptoms currently. He has been doing well over the last couple years with no significant weakness, numbness, or pain in the limbs. His balance is fair but he does not fall. He has no incontinence of urine, cognitive issues, or mood problems. He does not get headaches. He does sleep well it is tends to wake up early in stay awake. Denies spine pain. Patient went to bed without any new symptoms on April 07. He arose sometime in the middle the night, as usual, April 08 noting some dysesthesias the left face, arm, leg, body. On the face it was mostly the cheek and not the forehead her scalp. It was the whole arm and leg diffusely and the left trunk. He did not have any pain, weakness, or toney numbness. He was an unusual dysesthesias but is very difficult for him to describe. That morning he went to [employer] as usual and walked around with no change to his left-sided symptoms. He had no chest pain, shortness of breath, or dizziness. He came home around 10 30, sat down and noted a little bit of unusual feeling in his head, as if he might pass out but there was no actual syncope and no woozy or vertiginous symptoms. His left-sided dysesthesias were the same. He decided then that he should go to the emergency room. He arrived April 08 at 1248 with a temperature of 36.3, pulse 83 and regular, respiratory rate 16 regular, blood pressure 159/80, and O2 saturation 97 percent. Patient had no focal neurologic signs, encephalopathy, or meningeal signs. Chest x-ray showed some cardiomegaly. CT scan of the head was unremarkable for acute findings CBC showed some mild anemia and Chem profile was remarkable only for glucose of 160. B12 was 307, folate 10, and urinalysis and Lyme antibody titers were unremarkable. Sometime in the late afternoon or evening his symptoms of the left side faded and he does not have any left-sided symptomatology this morning. He feels back to baseline. Nursing reports no events or issues overnight. The Allergies Allergy/AdvReac Type Severity Reaction Status Date / Time No Known Allergies Allergy Unverified 04/08/18 13:26 Home Medications Home Medications Medication Instructions Recorded Confirmed Type calcium carbonate-vitamin D3 1 tab PO DAILY 04/08/18 04/08/18 History [Calcium 600 + D(3)] celecoxib [Celebrex] 200 mg PO DAILY 04/08/18 04/08/18 History indapamide 1.25 mg PO QAM 04/08/18 04/08/18 History sulfasalazine 2,000 mg PO BID 04/08/18 04/08/18 History Patient History Medical History Regional colitis Lumbosacral radiculopathy Hx of prostatic malignancy Polyneuropathy HTN (hypertension) Neurological symptoms (Acute) HTN (hypertension) (Chronic) Chest pain (Resolved) Surgical History History of tonsillectomy and adenoidectomy Hx of cataract surgery Family History Mother HX: breast cancer Father DM II (diabetes mellitus, type II), controlled Benign essential HTN Social History Current Living Situation: Alone Other Information That Helps Us Care for You: No Feels Safe at Home: Yes Safety Concerns: Feels Safe At This Time Smoking Status: Never smoker Hx Alcohol Use: Yes Alcohol Intake Frequency: holidays/special occasions only Hx Substance Use: No Beliefs That Will Affect Care: None Preferred Language: Telugu Communication Ability: Effective Switch Inspector Required: No Review of Systems Constitutional: no fever and no fatigue Eyes: no diplopia, no eye pain and no worsening vision Ear, Nose, Mouth, Throat: no ear pain, no tinnitus, no hearing loss and no dysphagia Respiratory: no cough and no dyspnea Cardiovascular: no chest pain, no dyspnea and no palpitations Gastrointestinal: no abdominal pain, no nausea and no vomiting Genitourinary (Male): no dysuria, no urinary frequency and no urinary incontinence Musculoskeletal: no back pain, no neck pain, no radicular pain, no myalgia, no muscle weakness and no muscle atrophy Integumentary: no rash and no lesions Neurologic: no gait abnormality, no falls, no localized weakness, no generalized weakness, no tingling, no numbness, no tremor(s), no abnormal movements, no dizziness, no headache(s), no abnormal speech, no behavioral changes, no confusion and no memory loss Psychiatric: no depression, no abnormal sleep pattern, no anxiety, no difficulty concentrating, no confusion and no hallucinations Endocrine: no fatigue and no flushing Hematologic / Lymphatic: no easy bleeding and no easy bruising Allergy / Immunological: no urticaria Physical Exam 2 Vital Signs (Past 24 Hours): Last Vital Signs Temp 36.5 C 04/09/18 06:48 Pulse 77 04/09/18 06:48 Resp 18 04/09/18 06:48 BP 141/69 H 04/09/18 06:48 Pulse Ox 93 04/09/18 06:48 Physical Exam: The patient is right-handed. The patient is awake, alert, and attentive. Speech is normal without any aphasia or dysarthria. Mentation and thought processes are intact, with full orientation and normal fund of knowledge. Attention and concentration are normal. Mood and affect are normal and appropriate. General appearance and grooming are normal. Short and long-term memory are intact. The discs are sharp with positive venous pulsations bilaterally. There are no exudates, hemorrhages, or blood vessel changes seen. Pupils are 3 mm bilaterally and reactive to light. Extraocular eye muscles are intact without nystagmus. Visual acuity and visual desir seem normal grossly to confrontation. There are no deficits to sensation in the face in all 3 distributions of the fifth cranial nerve bilaterally. Corneal reflexes are positive bilaterally. Facial strength and symmetry was normal bilaterally. Hearing seems intact grossly to voice and finger rub bilaterally. Palate moves well without asymmetry. There is normal sternocleidomastoid and trapezius (shoulder shrug) strength bilaterally. Tongue is midline with good strength bilaterally. Neck has a full range of motion without discomfort. There are no cervical bruits bilaterally. There are no cranial or ocular bruits. Heart is without murmur. There is a regular rhythm and rate. Cervical, thoracic, and lumbar spine are nontender to palpation. Gait is narrow based, with good arm swing, turns, and stance. Balance is normal eyes open or closed. With outstretched arms there is no drift. There are no resting, postural, or action tremors. There is no ataxia with finger to nose testing. There is good facility in the hands. No other abnormal involuntary movements are noted. Motor strength is 5/5 diffusely in the arms bilaterally including deltoids, biceps, triceps, brachioradialis, wrist flexors and extensors, investment consultant, and intrinsic hand muscles. Motor strength is 5/5 diffusely in the legs bilaterally including hip flexors, quadriceps, hamstrings, gastrocnemius, tibialis anterior , tibialis posterior, and Peroneii muscles bilaterally. Toe extensors are normal and there is good bulk in the extensor digitorum brevis muscles bilaterally. The limbs have good tone without rigidity or spasticity. There is no atrophy noted in the muscles. Muscle bulk is normal, there is no tenderness to palpation , no myotonia to percussion, and no fasciculations seen. Sensory examination reveals some slight decreased sensation to pin in the toes bilaterally. He has no deficits in sensation to pin or touch in the left side compared to the right side diffusely. He has marked vibratory sense loss in the feet bilaterally. Reflexes are 1/4 in the biceps, triceps, and brachioradialis tendons bilaterally. Quadriceps tendon reflexes are present at about 1/4 with reinforcement maneuvers. Achilles tendon reflexes are absent bilaterally. Toes are downgoing with plantar stimulation bilaterally. Peripheral pulses are present and of normal quality distally in all 4 limbs. There is no peripheral edema noted in the limbs.
[2018-04-09] MEDS: sulfaSALAzine 500 MG TABLET PO SCH (08:32)
[2018-04-09] MEDS ORDERED: CALCIUM 600MG + VIT D 400 IU TAB PO SCH (09:00)
[2018-04-09] MEDS ORDERED: CeleBREX 200 MG CAP PO SCH (09:00)
[2018-04-09] MEDS ORDERED: INDAPAMIDE 1.25 MG TAB PO SCH (09:00)
--- NOTE | 2018-04-09 09:37 | Magnetic Resonance Report ---
MR brain wo con CLINICAL HISTORY: 82 years-old Male presenting with Possible CVA, left-sided arm and leg tingling one day ago, history of similar symptoms. TECHNIQUE: Multisequence, multiplanar MR imaging of the brain was performed without the use of intrav enous contrast. IV contrast: None. COMPARISON: Noncontrast CT head performed yesterday and brain MR from 2016. FINDINGS: Localizer images: Unremarkable. Proportional ventricular and sulcal prominence, likely age-related parenchymal volume loss. Periventr icular and subcortical white matter T2/FLAIR hyperintensity, nonspecific but likely indicative of chr onic small vessel ischemic change. Postcontrast imaging was not performed. No mass effect or midline shift. No restricted diffusion to suggest acute ischemia. No hemorrhage. No extra-axial fluid collection. T2 skull base flow voids preserved. Bone marrow signal intensity within the calvarium within normal l imits. IMPRESSION: 1. Chronic small vessel ischemic change. No acute intracranial abnormality. Electronically signed by: Nishant Pickard M.D. 04/09/2018 9:35 AM
[2018-04-09 11:49] LABS: Prostate Specific Antigen 0.022 ng/ml (0-4)
[2018-04-09 11:56] LABS: Estimated Average Glucose 117 mg/dl; Hemoglobin A1C 5.7 % (4.5-5.6)
[2018-04-09 12:02] LABS: T4 Free Thyroxine 1.46 ng/dl (0.8-1.6)
--- NOTE | 2018-04-09 17:25 | Discharge Summary ---
Date of Service April 09, 2018 Admission HPI Per Admitting Provider This is an 82 yo M with PMHx of prostate cancer 10 yrs ago s/p external beam radiation and radioactive seed implantation, regional colitis on sulfasalazine, HTN, osteoarthritis, remote smoking hx of 3 ppd x 35-40 years, lumbo thoracic back pain and polyneuropathy who presents with new onset of a "Strange sensation involving the Left side of his body". Pt is unable to clearly describe how he feels, but notes feeling extremely anxious and worried a few times earlier this morning and thought he needed to be seen. The sensation seems to come and go slightly, and is present during my exam. He denies pain, tingling, burning, itching, numbness or weakness. Pt was in his normal state of health and went to a store yesterday. He typically walks the inside perimeter of a large grocery-like store on a daily basis but did not today. He notes this strange sensation happened once many years ago, and that a complete workup was negative. He follows closely with his PCP, Dr. Panda as an outpatient. He denies any other acute symptoms but is wishing to stay in the hospital overnight for monitoring. Imaging is negative for acute findings. His vitals are fairly stable except for slightly elevated BP. BMP is essentially unremarkable. CBC is also WNL. Principal Diagnosis Left facial paresthesias - Possibly a TIA Discharge Exam Constitutional WD/WN, vitals as above Eyes normal visual desir by confrontation and + anicteric sclerae Neck normal visual inspection and trachea midline Respiratory normal respiratory effort, lungs clear to auscultation Cardiovascular Rate/Rhythm: regular rate and regular rhythm Gastrointestinal (Abdomen) Inspection/Auscultation: abdomen not distended Percussion/Palpation: abdomen soft; abdomen nontender Musculoskeletal Head/Neck/Chest: normocephalic and head atraumatic Skin no rashes, warm and dry Neurologic awake; not confused Speech / Cognition: normal speech Psychiatric A+Ox3, euthymic affect Discharge Data Allergies Allergy/AdvReac Type Severity Reaction Status Date / Time No Known Allergies Allergy Unverified 04/08/18 13:26 Consultations 04/08/18 16:43 ED Decision to Admit Stat 04/08/18 20:42 Consult Neurology Routine Ordered Studies 04/08/18 13:16 CT head/brain wo con Stat 04/09/18 08:07 MR brain wo con Urgent Hospital Course (1) Neurological symptoms: Possible TIA as MRI brain on 04/09 did not show CVA. All symptoms resolved by discharge. Discharged on ASA 81mg and will follow up in [address] head was negative for acute findings, neuro exam is without acute findings. Consider MRI brain if neurological changes/sx worsen. (2) HTN (hypertension): - BP slightly elevated due to anxiety from being in hospital setting, continued indapamide 1.25 mg daily, controls BP well as an outpatient per record review. (3) Polyneuropathy: - Minimal symptoms but occasionally has numbness in his feet, the sensation which he complains of upon admission is not the same. Does not use assistive devices for ambulation, lives independently. (4) Hx of prostatic malignancy: - 10 years ago, s/p external beam radiation and radioactive seed implantation. No lower urinary tract sx. - PSA followed as outpatient, last was 0.022. (5) Lumbosacral radiculopathy: - Chronic, uses celebrex 200 mg daily (6) Regional colitis: - Continue sulfasalazine 2 g BID (7) DVT prophylaxis: - teds, lovenox subq Total Time Total Time Spent Total Time Spent (In Minutes): 40 Total Time Includes: Examination of the Patient, Discharge Planning, Medication Reconciliation and Communication With Other Providers Discharge Plan Discharge Items Patient Disposition: Home - Self-Care Reason For Visit: PARESTHESIA OF LEFT SIDE Discharge Diagnosis: Left-sided facial tingling - No stroke Condition: Good Discharge Goals: Diagnostic testing Activity: Resume your previous activity Non-emergency contact: Primary Care Provider and Neurologist Call non-emergency contact if: your symptoms worsen, your pain is concerning for you and your temperature is above 101.5 Follow-up/Referrals: Gilberto Panda MD [Primary Care Provider] - (Please follow up with Dr. Panda at your next scheduled appointment.) Travon Hernandez III, MD [Physician] - (Please see Dr. Hernandez in 3-4 weeks for follow up.) Diet: Regular Addtl Provider Instructions: Mr. Soto, You were admitted for concern for a stroke. We had the neurologist see you and got an MRI of your brain. The MRI of your brain showed some "small vessel disease" which is not a stroke, but shows evidence of some high blood pressure and possible high cholesterol. Please keep working with Dr. Panda on your blood pressure and cholesterol as you are doing. The tingling on your face could represent a "mini-stroke" or TIA. This is an episode where your brain doesn't get enough oxygen for a very short period of time. There is no damage to the brain during a TIA or mini-stroke, but it indicates a higher risk for having a stroke in the future. To help reduce this risk, we recommend starting a baby aspirin (81mg) every day. Please follow up with Dr. Hernandez in 3-4 weeks and follow up with Dr. Panda. Please return to the hospital if you have any further concerning symptoms, localized weakness, slurred speech, confusion, numbness, or dizziness. Risk Factors for Stroke: You can reduce your chances of stroke by working with your medical provider to adopt a healthy lifestyle. Some specific ways to lower your chance of stroke are: * If you are a smoker, now is the time to stop smoking cigarettes * If you are diabetic, improve the control of your blood sugars * Avoid excessive amounts of alcohol * Control high blood pressure * Lose weight if you are overweight * Be sure to lead an active lifestyle * Eat a healthy diet low in salt, cholesterol and fat You should know about other risk factors for stroke that you are unable to control. These include: * Age 55 years or older * Male gender * Certain racial groups: , or / * Family History of Stroke, Mini stroke or Heart Attack * Sickle Cell Disease Follow Up: It is important for you to keep your follow up appointments with your medical provider. Who to Call and When: Medical Emergencies: Call 911 immediately if you experience any of the following warning signs and symptoms of Stroke: * Sudden numbness or weakness of the face, arm or leg, especially on one side of the body * Sudden confusion, trouble speaking or understanding * Sudden trouble seeing in one or both eyes * Sudden trouble walking, dizziness, loss of balance or coordination * Sudden severe headache with no cause Do not delay calling 911 if you experience any warning signs or symptoms of a stroke. Delay in seeking medical attention may affect what treatments can be given to you. . Prescriptions: New aspirin 81 mg tablet,chewable 81 mg PO DAILY Qty: 30 RF: 0 Continue celecoxib [Celebrex] 200 mg Capsule 200 mg PO DAILY RF: 0 sulfasalazine 500 mg Tablet 2,000 mg PO BID RF: 0 indapamide 1.25 mg Tablet 1.25 mg PO QAM RF: 0 calcium carbonate-vitamin D3 [Calcium 600 + D(3)] 600 mg calcium- 200 unit Capsule 1 tab PO DAILY RF: 0 Stand-Alone Forms: [facility] Discharge Orders: Discharge Order (Routine); Ordered 04/09/18 Ordered By: Elroy Fraga Admission Data Admit Date/Time: 04/08/18 17:44 Attending Provider: Elroy Fraga Admit Provider: Catarina Bajwa Primary Care Provider: Gilberto Panda Other Providers: Travon Hernandez III ; Elroy Fraga Service: Telemetry Other Interventions: Discharge Summary Assessment (RN) Last Done: 04/09/18 11:10 DC Date/Time DO NOT enter until pt leaves facility: 04/09/18 11:30
== END 2018-04-09 11:30 | disposition home or self-care (01) ==
LOC: ED 12:31 → 2N 12:31 → SUATTDRO 17:44 → 2N 20:15

== ENCOUNTER 2022-12-24 09:31 | Inpatient (IN) ==
--- NOTE | 2022-12-24 10:27 | XRay Report ---
KUB HISTORY: Acute generalized abdominal pain with constipation constipation COMPARISON: None FINDINGS: Brachytherapy seeds of the prostate. Mild colonic fecal retention. Nonobstructive bowel gas pattern. The renal shadows are obscured by bowel gas. Arterial calcifications. No renal calculi. No ureteral calculi. No pneumoperitoneum or pneumatosis. Degenerative changes of the spine, pelvis and hips. No fracture. IMPRESSION: 1. Nonobstructive bowel gas pattern. 2. Colonic stool volume is mild and within normal limits. ACT 112: Negative or not required by law. The above report was generated using voice recognition software. It may contain grammatical, syntax o r spelling errors. Electronically signed by: Jesse Toscano M.D. 12/24/2022 10:26 AM
[2022-12-24 11:36] LABS: Basophils # (auto) 0.03 K/uL (0.00-0.20); Basophils % (auto) 0.2 %; Eosinophils # (auto) 0.01 K/uL (0.00-0.50); Eosinophils % (auto) 0.1 %; Hematocrit (blood only) 35.4 % (42.0-52.0); Hemoglobin 11.9 g/dl (14.0-18.0); Immature Granulocytes # (auto) 0.06 K/uL (0.01-0.20); Immature Granulocytes % (auto) 0.3 %; Lymphocytes # (auto) 1.07 K/uL (1.20-3.40); Lymphocytes % (auto) 6.2 %; Mean Corpuscular Hemoglobin 31.1 pg (25.0-34.0); Mean Corpuscular Hgb Conc 33.6 g/dL (32.0-36.0); Mean Corpuscular Volume 92.4 fL (80.0-100.0); Mean Platelet Volume 11.1 fL (9.4-12.4); Monocytes # (auto) 2.23 K/uL (0.11-0.59); Monocytes % (auto) 12.9 %; Neutrophils % (auto) 80.3 %; Platelet Count 188 K/uL (130-400); RDW Standard Deviation 47.2 fL (36.4-46.3); Red Blood Count 3.83 M/uL (4.70-6.10)
[2022-12-24 11:45] LABS: Alanine Aminotransferase 30 U/L (7-52); Albumin Globulin Ratio 1.2 (0.9-2); Albumin Level 4.2 gm/dl (3.4-5.0); Alkaline Phosphatase 59 U/L (34-104); Anion Gap 12 (3-11); Aspartate Aminotransferase 49 U/L (13-39); BUN Creatinine Ratio 10.4 (10-20); Bilirubin,Total 0.8 mg/dl (0.2-1.0); Blood Urea Nitrogen 53 mg/dl (6-23); Calcium 9.2 mg/dl (8.6-10.3); Carbon Dioxide 23 mmol/L (21-32); Chloride 100 mmol/L (98-107); Est GFR (African American) 10.7 ml/min; Est GFR (Non-African American) 9.3 ml/min; Globulin 3.5 gm/dl (2.5-4.0); Glucose 154 mg/dl (70-99(Fasting)); Potassium 4.7 mmol/L (3.5-5.1); Sodium 135 mmol/L (136-145); Total Protein 7.7 gm/dl (6.0-8.3)
--- NOTE | 2022-12-24 12:47 | Emergency Department Note ---
Impression & Plan Acute renal failure (ARF), Acute UTI (urinary tract infection), Hematuria, Acute urinary retention ED Provider Note NAME: LISA CID AGE: 87 SEX: M : 1935 ARRIVES VIA: Walk-In INFORMANT: Patient, ED PROVIDER(S): Janes Castillo DO CHIEF COMPLAINT: Urinary tract infection HPI: The patient is an 87-year-old male who presented to the emergency department for UTI symptoms. He started having hematuria and then was placed on an antibiotic for urinary tract infection. The patient noticed worsening symptoms as well as nausea vomiting. He presented to the emergency department today because the symptoms. The patient denies having any chest pain. He denies have any difficulty breathing. He is noticing some lower extremity swelling. ROS: See above HPI for pertinent positives & negatives. A total of 10 systems reviewed and were otherwise negative. PAST MEDICAL HISTORY: See Below PAST SURGICAL HISTORY: See Below FAMILY HISTORY: See Below SOCIAL HISTORY: See Below HOME MEDICATIONS: See Below ALLERGIES: See Below VITALS: See Below PHYSICAL EXAMINATION: GENERAL: Patient is awake alert in no acute distress patient is resting comfortably and showing no signs of anxiety EYES: The conjunctivae are clear. The pupils are round and reactive. EARS, NOSE, MOUTH AND THROAT: The nose is without any evidence of any deformity. NECK: The neck is nontender and supple. RESPIRATORY: Normal respiratory effort is noted there is no evidence of wheezing rhonchi or rales CARDIOVASCULAR: Regular rate and rhythm noted there no murmurs rubs or gallops normal S1 normal S2. GASTROINTESTINAL: The abdomen is distended. There is suprapubic tenderness to palpation but no guarding or rigidity. MUSCULOSKELETAL/EXTREMITIES: There is no evidence of gross deformity full range of motion is noted in the hips and shoulders. SKIN: Pedal edema was noted bilaterally. NEUROLOGIC: Patient is awake alert and oriented x3 MEDICAL DECISION MAKING: The patient is an 87-year-old male who presented to the emergency department for an evaluation and antibiotic for of hematuria. The patient was treated with antibiotics recently. The patient presented to the emergency department with ongoing symptoms and was found to have signs of renal failure with elevated creatinine. He was not felt to be in urinary retention although when a Holly catheter was placed he had significant amount of gross hematuria. He was found to be in clot retention on CT. This was treated with irrigation. The patient continued to make urine while in the emergency department. I discussed the patient's laboratory and radiographic studies with him. He was treated with IV fluids and IV antibiotics. I also discussed his condition with the on-call [facility] hospitalist. They have agreed to evaluate the patient in the emergency department for further management and disposition. Triage Nursing notes reviewed. Prior medical records reviewed Vital Signs: reviewed and remarkable for no significant abnormalities Differential diagnosis: Infection, dehydration, metabolic abnormality, hypo/hyperglycemia, electrolyte disturbance, anemia, hypoxia, cardiac sources, intracerebral event, toxicologic, neurologic, as well as other pathologies. ER treatment provided: See below Diagnostics interpreted by me: ECG: EKG was obtained in the emergency department. My interpretation is normal sinus rhythm at 94 bpm. There is no ectopy. There is no acute ST segment abnormalities noted. This was compared to a tracing from April 08, 2018. No changes were noted Cardiac Monitoring: An order was placed for continuous cardiac monitoring. The monitor shows a rate of 97 bpm with sinus rhythm. Laboratory studies: As stated above and show below. Imaging studies: See below. Radiographic imaging was reviewed by myself Consultation(s): I discussed this case with Dr. Palacios who is on-call for the [facility] hospitalist group. 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 Regional colitis Lumbosacral radiculopathy Hx of prostatic malignancy Polyneuropathy Neurological symptoms HTN (hypertension) Chest pain Surgical History History of tonsillectomy and adenoidectomy Hx of cataract surgery Family History Mother HX: breast cancer Breast cancer Father DM II (diabetes mellitus, type II), controlled Benign essential HTN Brother Diabetes Hypertension Sister Cancer , unknown type Other No family history of adverse response to anesthesia No family history of bleeding disorder Denies family history of Ovarian cancer Prostate cancer Myocardial infarction Colorectal cancer Social History Smoking Status: Never smoker Tobacco Type: Cigarettes Age Started Using Tobacco: 14; Age Quit Using Tobacco: 33; Second Hand Exposure: No; Do You Dip or Chew Tobacco: No; Hx Alcohol Use: No Hx Substance Use: No Preferred Language: Trinidadian Communication Ability: Effective Therapy Assistant Required: No Beliefs That Will Affect Care: None marital status: Current Living Situation: Alone current occupational status: retired current occupation: construction area manager/pipi fitter. How many Children do You have: 4 Feels Safe at Home: Yes Childhood Exposure to Second-Hand Smoke: Yes Diet: regular caffeine: Yes Dental Care, Regularly: Yes Physical Activity Frequency: 5-6 Times per Week Seatbelt Use: always Sunscreen Use: No Assistive Devices: None Allergies Allergies Allergy/AdvReac Type Severity Reaction Status Date / Time No Known Drug Allergies Allergy Verified 12/20/22 09:43 Home Meds Home Medications Medication Instructions Recorded Confirmed calcium carbonate 600 mg-vitamin 1 tab PO BID 04/08/18 12/24/22 D3 5 mcg (200 unit) capsule (Calcium 600 + D(3)) Previous Rx's Medication Instructions Recorded aspirin 81 mg chewable tablet 81 mg PO DAILY #30 tabs 08/16/21 celecoxib 200 mg capsule (Celebrex) 200 mg PO DAILY #90 caps 04/23/22 indapamide 1.25 mg tablet 1.25 mg PO QAM #90 tabs 04/23/22 losartan 25 mg tablet 25 mg PO DAILY #90 tabs 06/25/22 sulfasalazine 500 mg tablet 2,000 mg (4 x 500 mg) PO BID #720 08/08/22 tabs levothyroxine 25 mcg tablet 25 mcg PO DAILY #90 tabs 08/13/22 ciprofloxacin HCl 500 mg tablet 500 mg PO BID 7 days #14 tabs 12/23/22 (Cipro) Results & Data (ED) Vital Signs Vital Signs - 24 hr 12/24/22 09:45 12/24/22 13:16 12/24/22 13:16 Temperature 36.6 C Temperature Source Temporal Artery Scan Pulse Rate 93 H Pulse Rate [Apical] 93 H Respiratory Rate 20 17 Respiratory Effort / Characteristics Non-Labored Respiratory Depth Normal Blood Pressure 127/67 Blood Pressure [Left Arm] 150/76 H Blood Pressure Mean 87 Blood Pressure Mean [Left Arm] 100 Pulse Oximetry 98 100 100 Oxygen Delivery Method Room Air Room Air Room Air Sepsis Recent Fever Within 48 Hours No Sepsis New/Unexplained Change in Mental Status No Sepsis Action Taken by Nursing No Action Required 12/24/22 13:17 12/24/22 15:00 Temperature Temperature Source Pulse Rate 94 H Pulse Rate [Apical] 97 H Respiratory Rate 16 Respiratory Effort / Characteristics Respiratory Depth Blood Pressure Blood Pressure [Left Arm] 146/67 H Blood Pressure Mean Blood Pressure Mean [Left Arm] 93 Pulse Oximetry 99 Oxygen Delivery Method Room Air Sepsis Recent Fever Within 48 Hours Sepsis New/Unexplained Change in Mental Status Sepsis Action Taken by Shelter Medications Current Medication List: was personally reviewed by me Laboratory Data Attestation: I reviewed the patient's lab results. 12/24/22 10:55 12/24/22 10:55 Lab Results 12/24/22 12/24/22 12/24/22 Range/Units 10:55 13:15 16:05 WBC 17.30 H (4.8-10.8) K/ul RBC 3.83 L (4.70-6.10) M/uL Hgb 11.9 L (14.0-18.0) g/dl Hct 35.4 L (42.0-52.0) % MCV 92.4 (80.0-100.0) fL MCH 31.1 (25.0-34.0) pg MCHC 33.6 (32.0-36.0) g/dL RDW Std Deviation 47.2 H (36.4-46.3) fL RDW Coeff of Aditya 14.0 (11.5-14.5) % Plt Count 188 (130-400) K/uL MPV 11.1 (9.4-12.4) fL Immature Gran % (Auto) 0.3 % Neut % (Auto) 80.3 % Lymph % (Auto) 6.2 % Marinette % (Auto) 12.9 % Eos % (Auto) 0.1 % Baso % (Auto) 0.2 % Neut # (Auto) 13.90 H (1.40-6.50) K/uL Lymph # (Auto) 1.07 L (1.20-3.40) K/uL Marinette # (Auto) 2.23 H (0.11-0.59) K/uL Eos # (Auto) 0.01 (0.00-0.50) K/uL Baso # (Auto) 0.03 (0.00-0.20) K/uL Immature Gran # (Auto) 0.06 (0.01-0.20) K/uL PT Cancelled INR Cancelled APTT Cancelled PTT Ratio Cancelled Sodium 135 L (136-145) mmol/L Potassium 4.7 (3.5-5.1) mmol/L Chloride 100 (98-107) mmol/L Carbon Dioxide 23 (21-32) mmol/L Anion Gap 12 H (3-11) BUN 53 H (6-23) mg/dl Creatinine 5.10 H* (0.6-1.4) mg/dl Est Cr Clr Drug Dosing Not Reportable Est GFR ( Amer) 10.7 ml/min Est GFR (Non-Af Amer) 9.3 ml/min BUN/Creatinine Ratio 10.4 (10-20) Glucose 154 H (70-99(Fasting)) mg/dl Lactate 1.6 (0.4-2.0) mmol/L Calcium 9.2 (8.6-10.3) mg/dl Total Bilirubin 0.8 (0.2-1.0) mg/dl AST 49 H (13-39) U/L ALT 30 (7-52) U/L Alkaline Phosphatase 59 (34-104) U/L Total Creatine Kinase 892 H (30-223) U/L Troponin I High Sens 18.4 (0-20) pg/ml Total Protein 7.7 (6.0-8.3) gm/dl Albumin 4.2 (3.4-5.0) gm/dl Globulin 3.5 (2.5-4.0) gm/dl Albumin/Globulin Ratio 1.2 (0.9-2) Lipase 51 (11-82) U/L Prostate Specific Ag < 0.008 (0-4) ng/ml Urine Color Red Urine Appearance Turbid A (Clear) Urine pH 6.5 (4.5-7.5) Ur Specific [place] 1.029 (1.000-1.030) Urine Protein 4+ H (Negative) Urine Glucose (UA) Negative (Negative) Urine Ketones Negative (Negative) Urine Blood 3+ H (Negative) Urine Nitrite Positive A (Negative) Urine Bilirubin 1+ H (Negative) Urine Urobilinogen Negative (Negative) Ur Leukocyte Esterase 1+ H (Negative) Urine WBC (Auto) 1-5 (0-5) /hpf Urine RBC (Auto) >30 H (0-4) /hpf U Hyaline Cast (Auto) 0 (0-5) /lpf U Epithel Cells (Auto) 10-20 H (0-5) /lpf Urine Bacteria (Auto) Negative (Negative) Administered Medications Discontinued Medications Sodium Chloride (Nss) 1,000 mls @ 999 mls/hr IV .Q1H1M ONE Stop: 12/24/22 14:35 Last Infusion: 12/24/22 16:01 Dose: Infused Documented By: Admin: 12/24/22 13:37 Dose: 999 mls/hr Documented By: KATHLEEN Ceftriaxone Sodium (Rocephin) 2,000 mg in 50 mls @ 100 mls/hr IV NOW STA Stop: 12/24/22 14:14 Last Admin: 12/24/22 15:59 Dose: 100 mls/hr Documented By: KATHLEEN Imaging Data Attestation: I personally reviewed and interpreted this imaging study as follows: My Impression: CT of the abdomen pelvis was obtained in the emergency department. My interpretation is bilateral hydronephrosis with urinary retention and clots in the bladder, final report below. 1 view chest x-ray was obtained in the emergency department. My interpretation is no free air or definite infiltrate, final report below. Radiologist's Impression: KUB X-Ray 12/24/22 09:49 KUB HISTORY: Acute generalized abdominal pain with constipation constipation COMPARISON: None FINDINGS: Brachytherapy seeds of the prostate. Mild colonic fecal retention. Nonobstructive bowel gas pattern. The renal shadows are obscured by bowel gas. Arterial calcifications. No renal calculi. No ureteral calculi. No pneumoperitoneum or pneumatosis. Degenerative changes of the spine, pelvis and hips. No fracture. IMPRESSION: 1. Nonobstructive bowel gas pattern. 2. Colonic stool volume is mild and within normal limits. ACT 112: Negative or not required by law. The above report was generated using voice recognition software. It may contain grammatical, syntax or spelling errors. Electronically signed by: Jesse Toscano M.D. 12/24/2022 10:26 AM Chest X-Ray 12/24/22 12:27 SINGLE VIEW CHEST CLINICAL HISTORY: Atypical chest pain. FINDINGS: 2 AP, portable, upright chest radiographs are compared to study dated 04/08/2018. The heart is enlarged noting atherosclerotic calcification of the thoracic aorta. The pulmonary vasculature is noncongested. Chronic interstitial thickening similar to previous. Scarring/atelectasis is noted in both lung bases. The lungs and pleural spaces are otherwise clear. No pneumothorax is seen. The skeletal structures are osteopenic. The bony thorax is grossly intact. IMPRESSION: Cardiomegaly with no active disease in the chest. ACT 112: Negative or not required by law. Electronically signed by: Harpreet Osuna M.D. 12/24/2022 1:02 PM Abdomen/Pelvis CT 12/24/22 13:35 CT SCAN OF THE ABDOMEN AND PELVIS WITHOUT IV CONTRAST CLINICAL HISTORY: Hematuria. Renal insufficiency. COMPARISON STUDY: Abdominal radiograph dated 12/24/2022. TECHNIQUE: CT scan of the abdomen and pelvis is performed from the lung bases to the proximal femora. Images are reviewed in the axial, sagittal, and coronal planes. IV contrast was not administered for this examination. A dose lowering technique was utilized adhering to the principles of ALARA. CT DOSE: 1506.87 mGy.cm FINDINGS: Lung bases: The heart is normal in size and without pericardial effusion. Calcified pleural plaques are present at both lung bases, typical for asbestos- related pleural disease. No airspace consolidation or pleural effusion is identified. Calcified granulomas are seen in the left lower lobe. A small hiatal hernia is noted. Liver: The unenhanced liver is normal in size, contour, and attenuation. There is no intrahepatic biliary ductal dilatation. Gallbladder: Distended but otherwise normal appearance. Spleen: Normal in size and attenuation. There are numerous calcified splenic granulomas. Pancreas: Unremarkable. Adrenal glands: Unremarkable. Kidneys: The unenhanced kidneys there is mild cortical atrophy. There is mild bilateral hydroureteronephrosis, likely related to the greater bladder distention. No renal calculi are identified. There is no evidence of contour deforming renal mass lesion. Abdominal vasculature: The abdominal aorta is normal in course and caliber noting moderate to advanced atherosclerotic calcification. Bowel: There is mild to moderate colonic diverticulosis without CT evidence of acute diverticulitis. No bowel obstruction is seen. Moderate fecal retention is noted throughout the colon. The appendix is well-visualized and normal. Peritoneum: There is no intraperitoneal free air or abdominal ascites. There is a fat-containing umbilical hernia. Lymphadenopathy: None. Pelvic viscera: A Holly catheter is in place. The bladder is markedly distended. The bladder somewhat hyperdense material consistent with blood clots. Pericystic infiltration is noted. The prostate gland is enlarged and heterogeneous noting brachytherapy implants in place. Skeletal structures: The skeletal structures are osteopenic. Moderate to advanced lumbosacral spondylosis is noted. No lytic or blastic lesions are seen. IMPRESSION: 1. The bladder is distended with a Holly catheter in place. A large amount of hyperdense material is seen within the bladder lumen, typical for blood clots. Follow-up with urology is recommended. 2. There is mild bilateral hydroureteronephrosis, likely related to the degree of bladder distention. 3. Asbestos related pleural disease. 4. Additional findings as above. ACT 112: Negative or not required by law. Electronically signed by: Harpreet Osuna M.D. 12/24/2022 2:51 PM Discharge Plan Visit Data Chief Complaint: Illness Stated Complaint: HASN'T BEEN ABLE TO EAT, IV REQUEST ED Provider: Janes Castillo Discharge Problem: Acute renal failure (ARF), Acute UTI (urinary tract infection), Hematuria, Acute urinary retention Patient Disposition: Being Evaluated by Hospitalist Forms Stand Alone Forms: Inductly Prescriptions Prescriptions: No Action aspirin 81 mg tablet,chewable 81 mg PO DAILY Qty: 30 0RF indapamide 1.25 mg tablet 1.25 mg PO QAM Qty: 90 3RF celecoxib [Celebrex] 200 mg capsule 200 mg PO DAILY Qty: 90 3RF losartan 25 mg tablet 25 mg PO DAILY Qty: 90 3RF sulfasalazine 500 mg tablet 2,000 mg PO BID Qty: 720 3RF levothyroxine 25 mcg tablet 25 mcg PO DAILY Qty: 90 3RF ciprofloxacin HCl [Cipro] 500 mg tablet 500 mg PO BID 7 Days Qty: 14 0RF Rx Instructions: Start Date 12/20/22 - End Date 12/27/22 Calcium 600 + D(3) 600 mg calcium- 200 unit Capsule 1 tab PO BID Rx Instructions: PER PT "CAN'T SWALLOW". Referrals Referrals: Best Leal MD [Primary Care Provider] - Discharge Problem: Acute renal failure (ARF) Qualifiers: Acute renal failure type: unspecified Qualified Code(s): N17.9 - Acute kidney failure, unspecified Hematuria Qualifiers: Hematuria type: gross Qualified Code(s): R31.0 - Gross hematuria
--- NOTE | 2022-12-24 13:03 | XRay Report ---
SINGLE VIEW CHEST CLINICAL HISTORY: Atypical chest pain. FINDINGS: 2 AP, portable, upright chest radiographs are compared to study dated 04/08/2018. The heart is enlarged noting atherosclerotic calcification of the thoracic aorta. The pulmonary vasculature is noncongested. Chronic interstitial thickening similar to previous. Scarring/atelectasis is noted in b oth lung bases. The lungs and pleural spaces are otherwise clear. No pneumothorax is seen. The skelet al structures are osteopenic. The bony thorax is grossly intact. IMPRESSION: Cardiomegaly with no active disease in the chest. ACT 112: Negative or not required by law. Electronically signed by: Harpreet Osuna M.D. 12/24/2022 1:02 PM
[2022-12-24 13:17] LABS: Lipase 51 U/L (11-82)
[2022-12-24 13:22] LABS: Troponin I High Sensitivity 18.4 pg/ml (0-20)
[2022-12-24] MEDS ORDERED: SODIUM CHLORIDE 0.9% 1,000 ML IV ONE (13:35)
[2022-12-24 13:38] LABS: Color Urine Red
[2022-12-24 13:39] LABS: Appearance Urine Turbid (Clear)
[2022-12-24 13:45] LABS: Bacteria Urine Automated Negative (Negative); Blood Urine 3+ (Negative); Cast Urine Automated 0 /lpf (0-5); Glucose Urine UA Negative (Negative); Ketones Urine Negative (Negative); Leukocyte Esterase Urine 1+ (Negative); Nitrite Urine Positive (Negative); Protein Urine 4+ (Negative); RBC Urine Automated >30 /hpf (0-4); Specific Gravity Urine 1.029 (1.000-1.030); Urobilinogen Urine Negative (Negative); pH Urine 6.5 (4.5-7.5)
[2022-12-24] MEDS ORDERED: cefTRIAXone SODIUM 2,000 MG/50 ML BAG IV STA (13:45)
[2022-12-24 13:47] LABS: Bilirubin Urine 1+ (Negative)
--- NOTE | 2022-12-24 14:43 | History & Physical Report ---
Date of Service December 24, 2022 Assessment & Plan (1) Hematuria: Plan: Less suspicious just UTI given urine culture from 12/20 with no growth however will cover for infection casey-operatively with IV ceftriaxone given elevated WBC pending repeat urine and blood cultures No renal mass on imaging History of prostate cancer s/p brachytherapy PSA < 0.008 Stop Celebrex and aspirin Kate catheter inserted and flushed following CT draining everything being put in and clearer Consult urology NPO after midnight for consideration of cystoscopy (2) Acute renal failure (ARF): Plan: Post obstructive due to clots in bladder - kate catheter now draining after flushing Stop celebrex, indapamide and losartan NSS 1L bolus given in ER, additional 1L Plasma-Lyte (bicarb 23 on admission) now then @125ml/hr overnight Repeat BMP in AM - no need for nephrology consult unless not improving (3) Hypothyroidism: Plan: TSH 7.005, will repeat with AM labs Continue levothyroxine 25 mcg PO daily (4) Hx of prostatic malignancy: (5) Acute urinary retention: Plan: Relieved with current kate Consult urology (6) HTN (hypertension): Plan: Hold indapamide and losartan due to JEN Monitor for hypertension and consider Ca channel jus if elevated Plan VTE Prophylaxis - chemical contraindicated due to hematuria Diet - regular, NPO after midnight Disposition - admit to med/tele Admission and Anticipated Discharge Date Admission Date: December 24, 2022 History of Present Illness Chief Complaint: Hematuria Primary Care Provider: Best Leal MD Alexandre Soto is an 87 year old male who presents to the ER with gross hematuria and suprapubic pain. Reports intermittent hematuria initially starting 8 days ago. UA taken and he was started on ciprofloxacin on 12/20 (4 days ago) by his PCP. He was advised to call again today if symptoms continuing however because the symptoms were getting worse with increased suprapubic pain, nausea and vomiting he decided to come to the ER. He currently takes aspirin and Celebrex. He has a significant history of prostate cancer status post brachytherapy. Allergies Allergy/AdvReac Type Severity Reaction Status Date / Time No Known Drug Allergies Allergy Verified 12/20/22 09:43 Home Medications Medication Instructions Recorded Confirmed Type calcium carbonate 600 mg-vitamin 1 tab PO BID 04/08/18 12/24/22 History D3 5 mcg (200 unit) capsule (Calcium 600 + D(3)) aspirin 81 mg chewable tablet 81 mg PO DAILY #30 tabs 08/16/21 12/24/22 Rx celecoxib 200 mg capsule (Celebrex) 200 mg PO DAILY #90 caps 04/23/22 12/24/22 Rx indapamide 1.25 mg tablet 1.25 mg PO QAM #90 tabs 04/23/22 12/24/22 Rx losartan 25 mg tablet 25 mg PO DAILY #90 tabs 06/25/22 12/24/22 Rx sulfasalazine 500 mg tablet 2,000 mg (4 x 500 mg) PO BID #720 08/08/22 12/24/22 Rx tabs levothyroxine 25 mcg tablet 25 mcg PO DAILY #90 tabs 08/13/22 12/24/22 Rx ciprofloxacin HCl 500 mg tablet 500 mg PO BID 7 days #14 tabs 12/23/22 12/24/22 Rx (Cipro) Past Med/Surg History Medical History Cellulitis of parapharyngeal space Intermittent gross hematuria Hypothyroidism History of colon polyps Tubulovillous adenoma resected July 2008. Regional colitis Lumbosacral radiculopathy Hx of prostatic malignancy Polyneuropathy Neurological symptoms HTN (hypertension) Chest pain Surgical History History of tonsillectomy and adenoidectomy Hx of cataract surgery Family History Mother HX: breast cancer Breast cancer Father DM II (diabetes mellitus, type II), controlled Benign essential HTN Brother Diabetes Hypertension Sister Cancer , unknown type Other No family history of adverse response to anesthesia No family history of bleeding disorder Denies family history of Ovarian cancer Prostate cancer Myocardial infarction Colorectal cancer Social History Smoking Status: Never smoker Tobacco Type: Cigarettes Age Started Using Tobacco: 14; Age Quit Using Tobacco: 33; Second Hand Exposure: No; Do You Dip or Chew Tobacco: No; Hx Alcohol Use: No Hx Substance Use: No Preferred Language: Nigerian Communication Ability: Effective Ball Truing Machine Operator Required: No Beliefs That Will Affect Care: None marital status: Current Living Situation: Other Current Living Situation Comment: With grandson current occupational status: retired current occupation: building and construction manager/pipi fitter. How many Children do You have: 4 Feels Safe at Home: Yes Safety Concerns: Feels Safe At This Time Childhood Exposure to Second-Hand Smoke: Yes Diet: regular caffeine: Yes Dental Care, Regularly: Yes Physical Activity Frequency: 5-6 Times per Week Seatbelt Use: always Sunscreen Use: No Assistive Devices: None Review of Systems Review of Systems: All systems reviewed & are unremarkable except as noted in HPI & below Physical Exam Constitutional: WD/WN, vitals as above Eyes: PERRL, conjunctivae normal, anicteric sclerae ENMT: external ear and nose normal, oropharynx normal Neck: trachea midline, no thyromegaly Respiratory: normal respiratory effort, lungs clear to auscultation Cardiovascular: RRR, no murmur, no edema Gastrointestinal (Abdomen): Inspection/Auscultation: abdomen normal to inspection; abdomen not distended Percussion/Palpation: + abdomen tender (suprapubic) and abdomen soft Musculoskeletal: no cyanosis or clubbing, extremities motor strength 5/5 Skin: no rashes, warm and dry Neurologic: moves all extremities and awake; not confused Psychiatric: A+Ox3, euthymic affect Genitourinary: no CVA tenderness Results & Data Results & Data Vital Signs (Past 12 Hours) Vital Signs Temp Pulse Pulse Resp BP BP Pulse Ox 12/24/22 13:17 94 H 12/24/22 13:16 100 12/24/22 13:16 93 H 17 150/76 H 100 12/24/22 09:45 36.6 C 93 H 20 127/67 98 O2 Del Method 12/24/22 13:17 12/24/22 13:16 Room Air 12/24/22 13:16 Room Air 12/24/22 09:45 Room Air Laboratory Results Abnormal lab results 12/24/22 12/24/22 Range/Units 10:55 13:15 WBC 17.30 H (4.8-10.8) K/ul RBC 3.83 L (4.70-6.10) M/uL Hgb 11.9 L (14.0-18.0) g/dl Hct 35.4 L (42.0-52.0) % RDW Std Deviation 47.2 H (36.4-46.3) fL Neut # (Auto) 13.90 H (1.40-6.50) K/uL Lymph # (Auto) 1.07 L (1.20-3.40) K/uL [place] # (Auto) 2.23 H (0.11-0.59) K/uL Sodium 135 L (136-145) mmol/L Anion Gap 12 H (3-11) BUN 53 H (6-23) mg/dl Creatinine 5.10 H* (0.6-1.4) mg/dl Glucose 154 H (70-99(Fasting)) mg/dl AST 49 H (13-39) U/L Urine Appearance Turbid A (Clear) Urine Protein 4+ H (Negative) Urine Blood 3+ H (Negative) Urine Nitrite Positive A (Negative) Urine Bilirubin 1+ H (Negative) Ur Leukocyte Esterase 1+ H (Negative) Urine RBC (Auto) >30 H (0-4) /hpf U Epithel Cells (Auto) 10-20 H (0-5) /lpf Diagnostic Findings SINGLE VIEW CHEST CLINICAL HISTORY: Atypical chest pain. FINDINGS: 2 AP, portable, upright chest radiographs are compared to study dated 04/08/2018. The heart is enlarged noting atherosclerotic calcification of the thoracic aorta. The pulmonary vasculature is noncongested. Chronic interstitial thickening similar to previous. Scarring/atelectasis is noted in both lung bases. The lungs and pleural spaces are otherwise clear. No pneumothorax is seen. The skeletal structures are osteopenic. The bony thorax is grossly intact. IMPRESSION: Cardiomegaly with no active disease in the chest. KUB HISTORY: Acute generalized abdominal pain with constipation constipation COMPARISON: None FINDINGS: Brachytherapy seeds of the prostate. Mild colonic fecal retention. Nonobstructive bowel gas pattern. The renal shadows are obscured by bowel gas. Arterial calcifications. No renal calculi. No ureteral calculi. No pneumoperitoneum or pneumatosis. Degenerative changes of the spine, pelvis and hips. No fracture. IMPRESSION: 1. Nonobstructive bowel gas pattern. 2. Colonic stool volume is mild and within normal limits. Medications Administered ER Medications Given: Normal saline 1000ml bolus Ceftriaxone 2000mg IV ECG Rate (beats per minute): 94 Rhythm: normal sinus Findings: + RBBB (incomplete) and + left axis deviation Comparison ECG Date: from (Apr 08, 2018) Change: no significant change Code Status & VTE Plan Code Status Full VTE Prophylaxis Plan VTE Prophylaxis will be ordered: No PG Care Time/CCT Total # of Minutes Spent Total Time Spent with Patient: Total time spent is greater than 50% in coordination of care (as documented) at patient's floor/unit and/or counseling patient: Coding Level of Care Code 31257 INT INP/OBS CARE 2/55MIN Diagnoses Hematuria R31.0 Hematuria type: gross Acute renal failure (ARF) N17.9 Acute renal failure type: unspecified Hypothyroidism E03.9 Hx of prostatic malignancy Z85.46 Acute urinary retention R33.8 HTN (hypertension) I10 (1) Hematuria Hematuria type: gross Qualified Code(s): R31.0 - Gross hematuria (2) Acute renal failure (ARF) Acute renal failure type: unspecified Qualified Code(s): N17.9 - Acute kidney failure, unspecified
--- NOTE | 2022-12-24 14:53 | CT Scan Report ---
CT SCAN OF THE ABDOMEN AND PELVIS WITHOUT IV CONTRAST CLINICAL HISTORY: Hematuria. Renal insufficiency. COMPARISON STUDY: Abdominal radiograph dated 12/24/2022. TECHNIQUE: CT scan of the abdomen and pelvis is performed from the lung bases to the proximal femora. Images are reviewed in the axial, sagittal, and coronal planes. IV contrast was not administered for this examination. A dose lowering technique was utilized adhering to the principles of ALARA. CT DOSE: 1506.87 mGy.cm FINDINGS: Lung bases: The heart is normal in size and without pericardial effusion. Calcified pleural plaques a re present at both lung bases, typical for asbestos-related pleural disease. No airspace consolidatio n or pleural effusion is identified. Calcified granulomas are seen in the left lower lobe. A small hi atal hernia is noted. Liver: The unenhanced liver is normal in size, contour, and attenuation. There is no intrahepatic maribel iary ductal dilatation. Gallbladder: Distended but otherwise normal appearance. Spleen: Normal in size and attenuation. There are numerous calcified splenic granulomas. Pancreas: Unremarkable. Adrenal glands: Unremarkable. Kidneys: The unenhanced kidneys there is mild cortical atrophy. There is mild bilateral hydroureteron ephrosis, likely related to the greater bladder distention. No renal calculi are identified. There is no evidence of contour deforming renal mass lesion. Abdominal vasculature: The abdominal aorta is normal in course and caliber noting moderate to advance d atherosclerotic calcification. Bowel: There is mild to moderate colonic diverticulosis without CT evidence of acute diverticulitis. No bowel obstruction is seen. Moderate fecal retention is noted throughout the colon. The appendix is well-visualized and normal. Peritoneum: There is no intraperitoneal free air or abdominal ascites. There is a fat-containing umbi lical hernia. Lymphadenopathy: None. Pelvic viscera: A Holly catheter is in place. The bladder is markedly distended. The bladder somewhat hyperdense material consistent with blood clots. Pericystic infiltration is noted. The prostate glan d is enlarged and heterogeneous noting brachytherapy implants in place. Skeletal structures: The skeletal structures are osteopenic. Moderate to advanced lumbosacral spondyl osis is noted. No lytic or blastic lesions are seen. IMPRESSION: 1. The bladder is distended with a Holly catheter in place. A large amount of hyperdense material is seen within the bladder lumen, typical for blood clots. Follow-up with urology is recommended. 2. There is mild bilateral hydroureteronephrosis, likely related to the degree of bladder distention. 3. Asbestos related pleural disease. 4. Additional findings as above. ACT 112: Negative or not required by law. Electronically signed by: Harpreet Osuna M.D. 12/24/2022 2:51 PM
[2022-12-24 15:06] LABS: Creatine Kinase 892 U/L (30-223)
--- NOTE | 2022-12-24 15:26 | Electrocardiogram Report ---
Test Reason : Blood Pressure : / mmHG Vent. Rate : 094 BPM Atrial Rate : 094 BPM P-R Int : 142 ms QRS Dur : 092 ms QT Int : 374 ms P-R-T Axes : 053 -36 053 degrees QTc Int : 467 ms Normal sinus rhythm Left axis deviation Incomplete right bundle branch block Abnormal ECG When compared with ECG of 08-APR-2018 13:24, No significant change was found Confirmed by Janes Singh ([id number]) on 12/24/2022 3:25:57 PM Referred By: REFERRED SELF Confirmed By:Janes Singh
--- NOTE | 2022-12-24 16:11 | Urology Consultation ---
Date of Consultation December 24, 2022 Assessment & Plan (1) Hematuria: (2) Acute urinary retention: (3) Acute renal failure (ARF): 87-year-old male admitted for gross hematuria and acute renal failure. Patient is afebrile, hemodynamically stable Labs reviewedcreatinine 5.10 (baseline ~1.2), WBC 17.3, hemoglobin 11.9 - continue to trend labs Patient has hx of prostate cancer s/p brachytherapy. PSA <0.008 today. UA on arrival was positive for nitrates and 1+ LE, negative for bacteria Urine culture on 12/20 showed no growth Blood cultures are pending Patient treated with ciprofloxacin as an outpatient Started on IV ceftriaxone in the emergency department CT reviewed and discussed with patient. Discussed findings of significant clot within the bladder, bladder distention with mild bilateral hydroureteronephrosis likely due to to bladder distention. A 16 Ghanaian catheter was placed in the ED and irrigated by nursing with return of significant amount of clots per RN. I upsized catheter to 22 Fr and irrigated catheter easily, no clots returned. Catheter patent and draining upon completion, patient tolerated well. Maintain Holly catheter. Okay to hand irrigate catheter as needed for clot obstruction, suprapubic discomfort. We discussed hematuria in detail and work-up including cystoscopy. Make NPO at midnight for possible cystoscopy and clot evacuation pending course. Continue supportive care and medical management per hospital service. will follow. History of Present Illness Reason for Consultation: Gross hematuria Attending Physician: Dr. Palacios History of Present Illness This is an 87-year-old male with past medical history of hypertension, polyneuropathy, prediabetes, hypothyroidism, history of prostate cancer who presented to the emergency department today with worsening gross hematuria and clots ongoing for greater than 1 week as well as nausea and vomiting. On arrival, he was afebrile and hemodynamically stable. Labs reviewed and notable for creatinine of 5.10 (baseline ~1.2), sodium 135, WBC 17.3, hemoglobin 11.9. Urinalysis showed 4+ protein, 3+ blood, positive nitrates, 1+ leukocyte Estrace, 1-5 WBC, >30 RBC, 10-20 epithelials and negative for bacteria. A 16 german Holly catheter was placed in the emergency department. CT abdomen and pelvis noted distended bladder with a Holly catheter in place, large amount of clot within the bladder; mild bilateral hydroureteronephrosis likely secondary to degree of bladder distention. Prostate gland is enlarged and heterogeneous noting brachytherapy implants in place. Holly catheter was irrigated after the CT scan by nursing with return of large amount of clots per RN. Patient seen and examined in the emergency department. He is awake, alert and resting in litter in no apparent distress. He denies suprapubic or flank discomfort. He reports hematuria started over 1 week ago. He was placed on ciprofloxacin by his PCP. He denies dysuria. No fever or chills. No nausea or vomiting at present. He is NPO. Last ate yesterday. Urine culture on 12/20 showed no growth. Personal history of prostate cancer status post brachytherapy. Denies family history of malignancy. He is a former smoker. Quit 50 years ago. He smoked about 1 pack/day for about 20 years. Allergies Allergy/AdvReac Type Severity Reaction Status Date / Time No Known Drug Allergies Allergy Verified 12/20/22 09:43 Home Medications Medication Instructions Recorded Confirmed Type calcium carbonate 600 mg-vitamin 1 tab PO BID 04/08/18 12/24/22 History D3 5 mcg (200 unit) capsule (Calcium 600 + D(3)) aspirin 81 mg chewable tablet 81 mg PO DAILY #30 tabs 08/16/21 12/24/22 Rx celecoxib 200 mg capsule (Celebrex) 200 mg PO DAILY #90 caps 04/23/22 12/24/22 Rx indapamide 1.25 mg tablet 1.25 mg PO QAM #90 tabs 04/23/22 12/24/22 Rx losartan 25 mg tablet 25 mg PO DAILY #90 tabs 06/25/22 12/24/22 Rx sulfasalazine 500 mg tablet 2,000 mg (4 x 500 mg) PO BID #720 08/08/22 12/24/22 Rx tabs levothyroxine 25 mcg tablet 25 mcg PO DAILY #90 tabs 08/13/22 12/24/22 Rx ciprofloxacin HCl 500 mg tablet 500 mg PO BID 7 days #14 tabs 12/23/22 12/24/22 Rx (Cipro) Patient History Medical History Cellulitis of parapharyngeal space Intermittent gross hematuria Hypothyroidism History of colon polyps Tubulovillous adenoma resected July 2008. Regional colitis Lumbosacral radiculopathy Hx of prostatic malignancy Polyneuropathy Neurological symptoms HTN (hypertension) Chest pain Surgical History History of tonsillectomy and adenoidectomy Hx of cataract surgery Family History Mother HX: breast cancer Breast cancer Father DM II (diabetes mellitus, type II), controlled Benign essential HTN Brother Diabetes Hypertension Sister Cancer , unknown type Other No family history of adverse response to anesthesia No family history of bleeding disorder Denies family history of Ovarian cancer Prostate cancer Myocardial infarction Colorectal cancer Social History Smoking Status: Never smoker Tobacco Type: Cigarettes Age Started Using Tobacco: 14; Age Quit Using Tobacco: 33; Second Hand Exposure: No; Do You Dip or Chew Tobacco: No; Hx Alcohol Use: No Hx Substance Use: No Preferred Language: Lithuanian Communication Ability: Effective Security Dispatcher Required: No Beliefs That Will Affect Care: None marital status: Current Living Situation: Alone current occupational status: retired current occupation: construction executive/pipi fitter. How many Children do You have: 4 Feels Safe at Home: Yes Childhood Exposure to Second-Hand Smoke: Yes Diet: regular caffeine: Yes Dental Care, Regularly: Yes Physical Activity Frequency: 5-6 Times per Week Seatbelt Use: always Sunscreen Use: No Assistive Devices: None Review of Systems Review of Systems: All systems reviewed & are unremarkable except as noted in HPI & below Physical Exam Constitutional: well developed; no acute distress Eyes: no scleral abnormality Neck: trachea midline Respiratory: normal respiratory effort; no respiratory distress and no labored breathing Cardiovascular: Extremities: no pedal edema Gastrointestinal (Abdomen): Inspection/Auscultation: abdomen normal to inspect ion; abdomen not distended Percussion/Palpation: abdomen soft; abdomen nontender Musculoskeletal: Head/Neck/Chest: normocephalic Skin: no rashes, warm and dry Neurologic: moves all extremities and awake Psychiatric: Orientation: alert and oriented x 3 Genitourinary: 16 Ghanaian Holly catheter patent and drai rula bunn red urine upon arrival, no clots noted in tubing. Patient was prepped and draped in typical sterile fashion, a well-lubricated 22 Ghanaian coud catheter was inserted per urethra, balloon inflated with 10 mL. I irrigated catheter with 200 mL sterile water, which irrigated easily, no clots returned. Patient tolerated procedure well, no complications noted. Holly was draining appropriately at completion. Results & Data Vital Signs (Past 12 Hours) Vital Signs Temp Pulse Pulse Resp BP BP Pulse Ox 12/24/22 15:00 97 H 16 146/67 H 99 12/24/22 13:17 94 H 12/24/22 13:16 100 12/24/22 13:16 93 H 17 150/76 H 100 12/24/22 09:45 36.6 C 93 H 20 127/67 98 O2 Del Method 12/24/22 15:00 Room Air 12/24/22 13:17 12/24/22 13:16 Room Air 12/24/22 13:16 Room Air 12/24/22 09:45 Room Air PG Care Time/CCT Total # of Minutes Spent Total Time Spent with Patient: Total time spent is greater than 50% in coordination of care (as documented) at patient's floor/unit and/or counseling patient: Coding Level of Care Code 16744 IN/OBS CONSULT LVL 5,80M Diagnoses Hematuria R31.0 Hematuria type: gross Acute urinary retention R33.8 Acute renal failure (ARF) N17.9 Acute renal failure type: unspecified (1) Hematuria Hematuria type: gross Qualified Code(s): R31.0 - Gross hematuria (3) Acute renal failure (ARF) Acute renal failure type: unspecified Qualified Code(s): N17.9 - Acute kidney failure, unspecified
[2022-12-24 16:52] LABS: INR 1.1 (0.9-1.1); Partial Thromboplastin Time 27.4 Seconds (21.0-31.0); Prothrombin Time 12.3 Seconds (9.0-12.0)
[2022-12-24] MEDS ORDERED: PLASMA-LYTE A 1,000 ML IV ONE (17:38)
[2022-12-25] MEDS: PLASMA-LYTE A 1,000 ML IV SCH ×2 (01:27→08:12)
[2022-12-25] MEDS: LEVOTHYROXINE SODIUM 25 MCG TABLET PO SCH (05:35)
[2022-12-25 06:43] LABS: Basophils # (auto) 0.02 K/uL (0.00-0.20); Basophils % (auto) 0.1 %; Eosinophils # (auto) 0.14 K/uL (0.00-0.50); Hematocrit (blood only) 28.1 % (42.0-52.0); Hemoglobin 9.5 g/dl (14.0-18.0); Immature Granulocytes # (auto) 0.07 K/uL (0.01-0.20); Immature Granulocytes % (auto) 0.5 %; Lymphocytes # (auto) 1.27 K/uL (1.20-3.40); Lymphocytes % (auto) 9.5 %; Mean Corpuscular Hemoglobin 31.8 pg (25.0-34.0); Mean Corpuscular Hgb Conc 33.8 g/dL (32.0-36.0); Mean Platelet Volume 10.8 fL (9.4-12.4); Monocytes # (auto) 2.02 K/uL (0.11-0.59); Monocytes % (auto) 15.1 %; Neutrophils # (auto) 9.84 K/uL (1.40-6.50); Neutrophils % (auto) 73.8 %; Platelet Count 139 K/uL (130-400); RDW Coefficient of Variation 14.1 % (11.5-14.5); RDW Standard Deviation 48.1 fL (36.4-46.3); Red Blood Count 2.99 M/uL (4.70-6.10); White Blood Count 13.36 K/ul (4.8-10.8)
[2022-12-25 07:36] LABS: Albumin Globulin Ratio 1.1 (0.9-2); Albumin Level 3.1 gm/dl (3.4-5.0); BUN Creatinine Ratio 19.6 (10-20); Bilirubin,Total 0.6 mg/dl (0.2-1.0); Calcium 7.9 mg/dl (8.6-10.3); Creatinine Clr Calc Pharmacy 26.5 ml/min; Est GFR (African American) 29.8 ml/min; Est GFR (Non-African American) 25.8 ml/min; Globulin 2.7 gm/dl (2.5-4.0); Potassium 3.9 mmol/L (3.5-5.1); Total Protein 5.8 gm/dl (6.0-8.3)
--- NOTE | 2022-12-25 08:39 | Urology Progress Note ---
Date of Service December 25, 2022 Assessment & Plan (1) Hematuria: (2) Acute renal failure (ARF): Plan: 87-year-old male admitted for gross hematuria and acute renal failure. Patient is afebrile, hemodynamically stable Subjectively feeling well Labs reviewedcreatinine improved to 2.19, WBC 13.36, hemoglobin 9.5 - continue to trend labs UA on arrival was positive for nitrates and 1+ LE, negative for bacteria Urine culture on 12/20 showed no growth Blood cultures are pending - follow cultures Currently on IV Ceftriaxone Holly catheter patent and draining appropriately with thin maroon urine, no clots noted on exam No manual irrigation required overnight Continue with conservative management for now with Holly catheter Nursing can perform manual irrigation as needed for catheter obstruction/suprapubic discomfort Patient will need cystoscopy to finalize hematuria work-up, but may be able to be done outpatient if urine begins to clear/pending hospital course Will continue to monitor progress and determine if a formal clot evacuation is needed Urology will follow Admission and Anticipated Discharge Date Admission Date: December 24, 2022 Subjective Patient seen and examined at bedside this morning, chart reviewed Patient sleeping upon my arrival, arouses easily to his name No acute issues overnight No manual irrigation required overnight per patient and nursing report Holly catheter is patent and draining thin light maroon urine Denies suprapubic or flank discomfort No nausea, vomiting, fever or chills Review of Systems Constitutional: as per Subjective / HPI Gastrointestinal: as per Subjective / HPI Genitourinary: + as per Subjective / HPI Physical Exam Constitutional: well developed; no acute distress Respiratory: normal respiratory effort; no respiratory distress and no labored breathing Cardiovascular: Extremities: no pedal edema Gastrointestinal (Abdomen): Inspection/Auscultation: abdomen normal to inspection; abdomen not distended Percussion/Palpation: abdomen soft; abdomen nontender Musculoskeletal: Head/Neck/Chest: normocephalic Neurologic: moves all extremities Psychiatric: Orientation: alert and oriented x 3 Genitourinary: Holly patent and draining thin light maroon urine, no clots noted Results & Data Vital Signs (Past 12 Hours) Vital Signs Temp Pulse Pulse Resp BP Pulse Ox O2 Del Method 12/25/22 07:52 36.7 C 97 H 17 133/66 92 Room Air 12/25/22 05:58 81 12/25/22 04:07 37.1 C 100 H 20 133/60 97 Room Air 12/24/22 23:51 37.6 C H 96 H 20 132/64 95 Room Air 12/24/22 21:58 89 PG Care Time/CCT Total # of Minutes Spent Total Time Spent with Patient: Total time spent is greater than 50% in coordination of care (as documented) at patient's floor/unit and/or counseling patient: Coding Level of Care Code 28829 SUB INP/OBS CARE 2/35MIN Diagnoses Hematuria R31.0 Hematuria type: gross Acute renal failure (ARF) N17.9 Acute renal failure type: unspecified (1) Hematuria Hematuria type: gross Qualified Code(s): R31.0 - Gross hematuria (2) Acute renal failure (ARF) Acute renal failure type: unspecified Qualified Code(s): N17.9 - Acute kidney failure, unspecified
[2022-12-25] MEDS: NSS + 20MEQ KCL 20 MEQ/1,000 ML BAG IV SCH ×2 (08:54→22:57)
[2022-12-25] MEDS: cefTRIAXone SODIUM 2,000 MG in DEXTROSE 5 % MINI-B 50 ML IV SCH (15:58)
--- NOTE | 2022-12-25 16:50 | Hospitalist Progress Note ---
Date of Service December 25, 2022 Assessment & Plan (1) Hematuria: Plan: Exact etiology uncertain. Diff - bladder lesion (although none seen on CT a/p) vs UTI vs prostatic in origin vs ureteral in origin. History of prostate cancer s/p brachytherapy PSA < 0.008. Both Celebrex and aspirin placed on hold. Gross hematuria led to clots which then caused obstruction with subsequent JEN/ARF. s/p kate placement by urology and catheter working well. H/H dropped from admission but have leveled off this afternoon. Appreciate urology consult; no plans for cysto today. They will re-eval tomorrow to decide if such is needed acutely. Repeat BMP am. Cont rocephin in the event he has an acute UTI. Follow cultures. (2) Acute renal failure (ARF): Plan: Obstructive due to gross hematuria with clots in bladder. s/p kate insertion with improved creatinine and good UOP. Asa and celebrex on hold Indapamide and losartan also on hold Peak Cr was 5.2, now <2 with IVF + kate insertion. Repeat BMP am. Change IVF to NS with 20 KCL and run at 75cc/hr. Appreciate urology assistance. (3) Acute blood loss anemia: Plan: 2nd to #1. H/H have leveled off this afternoon. Hematuria is still present but not as severe. Trend H/H's. (4) Hypothyroidism: Plan: TSH 7.005 in July 2022. Repeat the TSH in am. Continue levothyroxine 25 mcg PO daily in meantime. (5) Hx of prostatic malignancy: Plan: noted s/p brachytherapy for such most recent PSA undetectable (6) Acute urinary retention: Plan: Resolved with kate Consulted urology See discussion above (7) HTN (hypertension): Plan: Hold indapamide and losartan due to JEN BPs acceptable at this time (8) Regional colitis: Plan: Sulfasalazine placed on hold at time of admission no symptoms to suggest active colitis (9) DVT prophylaxis: Plan: chemical means contraindicated at this time due to #1 ambulation Plan updated pt's son Alexandre by phone this evening Admission and Anticipated Discharge Date Admission Date: December 24, 2022 Subjective patient sitting in chair feels better today had been unable to eat over the weekend due to nausea/vomiting both of which have stopped now tolerating a diet suprapubic/lower abdominal pain resolved kate in place - draining bunn red urine tele overnight wnl Review of Systems Review of Systems: gen - no fevers or chills cv - no chest pain pulm - no dyspnea or STALEY GI - no abd pain Physical Exam Physical Exam: gen - pleasant, NAD, sitting in chair skin - mild generalized pallor neck - no JVD mouth - MMM heart - RRR, s1 s2, no murmur lungs - CTA b/l abd - soft, NT, ND, BS+, no HSM ext - no edema, pulses 2+ b/l Results & Data Results & Data Vital Signs (Past 12 Hours) Vital Signs Temp Pulse Pulse Resp BP Pulse Ox O2 Del Method 12/25/22 15:23 37.1 C 87 18 120/61 97 Room Air 12/25/22 15:21 Room Air 12/25/22 14:01 93 H 12/25/22 11:12 37.5 C 87 17 109/56 L 91 Room Air 12/25/22 07:52 36.7 C 97 H 17 133/66 92 Room Air 12/25/22 05:58 81 Laboratory Results Laboratory Results - last 24 hr 12/25/22 12/25/22 05:59 17:10 WBC 13.36 H RBC 2.99 L Hgb 9.5 L 10.1 L Hct 28.1 L 30.1 L MCV 94.0 MCH 31.8 MCHC 33.8 RDW Std Deviation 48.1 H RDW Coeff of Aditya 14.1 Plt Count 139 MPV 10.8 Immature Gran % (Auto) 0.5 Neut % (Auto) 73.8 Lymph % (Auto) 9.5 [place] % (Auto) 15.1 Eos % (Auto) 1.0 Baso % (Auto) 0.1 Neut # (Auto) 9.84 H Lymph # (Auto) 1.27 [place] # (Auto) 2.02 H Eos # (Auto) 0.14 Baso # (Auto) 0.02 Immature Gran # (Auto) 0.07 Sodium 139 136 Potassium 3.9 4.0 Chloride 106 104 Carbon Dioxide 27 24 Anion Gap 6 8 BUN 43 H 46 H Creatinine 2.19 H D 1.61 H D Est Cr Clr Drug Dosing 26.5 36.1 Est GFR ( Amer) 29.8 43.3 Est GFR (Non-Af Amer) 25.8 37.4 BUN/Creatinine Ratio 19.6 28.6 H Glucose 120 H 125 H Calcium 7.9 L 8.5 L Total Bilirubin 0.6 AST 31 ALT 21 Alkaline Phosphatase 44 Total Creatine Kinase 365 H Total Protein 5.8 L D Albumin 3.1 L Globulin 2.7 Albumin/Globulin Ratio 1.1 Diagnostic Findings blood and urine cx's thus far negative PG Care Time/CCT Total # of Minutes Spent Total Time Spent with Patient: Total time spent is greater than 50% in coordination of care (as documented) at patient's floor/unit and/or counseling patient: Coding Level of Care Code 40015 SUB INP/OBS CARE 2/35MIN Diagnoses Hematuria R31.0 Hematuria type: gross Acute renal failure (ARF) N17.9 Acute renal failure type: unspecified Acute blood loss anemia D62 Hypothyroidism E03.9 Hx of prostatic malignancy Z85.46 Acute urinary retention R33.8 HTN (hypertension) I10 Regional colitis K50.10 DVT prophylaxis Z29.9 (1) Hematuria Hematuria type: gross Qualified Code(s): R31.0 - Gross hematuria (2) Acute renal failure (ARF) Acute renal failure type: unspecified Qualified Code(s): N17.9 - Acute kidney failure, unspecified
[2022-12-25 17:24] LABS: Hematocrit (blood only) 30.1 % (42.0-52.0); Hemoglobin 10.1 g/dl (14.0-18.0)
[2022-12-25 17:43] LABS: BUN Creatinine Ratio 28.6 (10-20); Calcium 8.5 mg/dl (8.6-10.3); Creatinine Clr Calc Pharmacy 36.1 ml/min; Est GFR (African American) 43.3 ml/min; Est GFR (Non-African American) 37.4 ml/min
[2022-12-26] MEDS: LEVOTHYROXINE SODIUM 25 MCG TABLET PO SCH (05:49)
[2022-12-26 06:44] LABS: Hematocrit (blood only) 26.2 % (42.0-52.0); Hemoglobin 8.8 g/dl (14.0-18.0); Mean Corpuscular Hemoglobin 31.1 pg (25.0-34.0); Mean Corpuscular Hgb Conc 33.6 g/dL (32.0-36.0); Mean Corpuscular Volume 92.6 fL (80.0-100.0); Mean Platelet Volume 11.2 fL (9.4-12.4); Platelet Count 147 K/uL (130-400); RDW Coefficient of Variation 13.9 % (11.5-14.5); RDW Standard Deviation 47.8 fL (36.4-46.3); Red Blood Count 2.83 M/uL (4.70-6.10); White Blood Count 10.85 K/ul (4.8-10.8)
[2022-12-26 07:00] LABS: Calcium 7.7 mg/dl (8.6-10.3)
[2022-12-26 07:05] LABS: BUN Creatinine Ratio 30.7 (10-20); Creatinine Clr Calc Pharmacy 42.4 ml/min; Est GFR (African American) 52.6 ml/min; Est GFR (Non-African American) 45.4 ml/min
--- NOTE | 2022-12-26 09:37 | Urology Progress Note ---
Date of Service December 26, 2022 Assessment & Plan (1) Hematuria: (2) Acute urinary retention: (3) Acute renal failure (ARF): Plan: 87-year-old male admitted for gross hematuria and acute renal failure. Patient is afebrile, hemodynamically stable Labs reviewedcreatinine trending downnow 1.37, WBC 10.85, hemoglobin 8.8 - continue to trend labs Urine culture on 12/20 showed no growth Blood cultures showing no growth x24 hours Urine culture pending Currently on IV Ceftriaxone Holly catheter patent and draining appropriately with yard engineer red urine, no clots noted on exam No manual irrigation required overnight Urine appears to be clearingcontinue with conservative management for now with Holly catheter Nursing can perform manual irrigation as needed for catheter obstruction/suprapubic discomfort Patient will need cystoscopy to finalize hematuria work-up, but likely can be done outpatient if urine continues to clear Recommend maintain catheter upon discharge Urology will follow Admission and Anticipated Discharge Date Admission Date: December 24, 2022 Subjective Patient seen and examined at bedside, chart reviewed No acute issues overnight Subjectively feeling well Denies suprapubic or flank pain No manual irrigation required overnight Holly is patent and draining yard engineer red urine, no clots noted No nausea, vomiting, fever or chills Review of Systems Constitutional: as per Subjective / HPI Gastrointestinal: as per Subjective / HPI Genitourinary: + as per Subjective / HPI Physical Exam Constitutional: well developed; no acute distress Respiratory: normal respiratory effort; no respiratory distress and no labored breathing Gastrointestinal (Abdomen): Inspection/Auscultation: abdomen normal to inspection; abdomen not distended Musculoskeletal: Head/Neck/Chest: normocephalic Neurologic: moves all extremities Psychiatric: Orientation: alert and oriented x 3 Genitourinary: Holly patent and draining light red urine, no clots noted Results & Data Vital Signs (Past 12 Hours) Vital Signs Temp Pulse Pulse Pulse Resp BP BP 12/26/22 07:36 37.0 C 91 H 18 149/66 H 12/26/22 06:32 92 H 12/26/22 03:12 36.9 C 85 18 130/68 12/25/22 23:32 37.1 C 93 H 20 166/74 H 12/25/22 22:01 80 Pulse Ox O2 Del Method 12/26/22 07:36 96 Room Air 12/26/22 06:32 11/08/23 03:12 94 Room Air 12/25/22 23:32 94 Room Air 12/25/22 22:01 PG Care Time/CCT Total # of Minutes Spent Total Time Spent with Patient: Total time spent is greater than 50% in coordination of care (as documented) at patient's floor/unit and/or counseling patient: Coding Level of Care Code 37350 SUB INP/OBS CARE 2/35MIN Diagnoses Hematuria R31.0 Hematuria type: gross Acute urinary retention R33.8 Acute renal failure (ARF) N17.9 Acute renal failure type: unspecified (1) Hematuria Hematuria type: gross Qualified Code(s): R31.0 - Gross hematuria (3) Acute renal failure (ARF) Acute renal failure type: unspecified Qualified Code(s): N17.9 - Acute kidney failure, unspecified
[2022-12-26] MEDS: NSS + 20MEQ KCL 20 MEQ/1,000 ML BAG IV SCH (10:12)
[2022-12-26] MEDS ORDERED: bisacodyL 10 MG SUPP PR PRN (12:08)
[2022-12-26] MEDS: POLYETHYLENE (MIRALAX) 17 GM PACK PO SCH (12:39)
[2022-12-26] MEDS: SENNA 8.6 MG TAB PO SCH (12:52)
[2022-12-26] MEDS: cefTRIAXone SODIUM 2,000 MG in DEXTROSE 5 % MINI-B 50 ML IV SCH (15:29)
--- NOTE | 2022-12-26 16:03 | Hospitalist Progress Note ---
Date of Service December 26, 2022 Assessment & Plan (1) Hematuria: Plan: Exact etiology uncertain. Diff - bladder lesion (although none seen on CT a/p) vs UTI vs prostatic in origin vs ureteral in origin. History of prostate cancer s/p brachytherapy with most recent PSA < 0.008. Both Celebrex and aspirin remain on hold. Gross hematuria led to clots which then caused obstruction with subsequent JEN/ARF. s/p kate placement by urology and catheter working well. H/H with slow trend downward but H/H today are in 8.5-9 range. Needs repeat CBC am. Appreciate urology consult; still no plans for cystoscopy. They will re-eval tomorrow to decide if such is needed acutely. Repeat BMP am. Cont rocephin in the event he has an acute UTI despite the negative cultures. He is having low-grade fevers (mid 37's) thus will continue abx as precautionary measure. (2) Acute renal failure (ARF): Plan: Obstructive due to gross hematuria with clots in bladder. s/p kate insertion with improved creatinine and good UOP. Asa and celebrex on hold Indapamide and losartan also on hold Peak Cr was 5.2, now 1.3 with IVF + kate insertion. Repeat BMP am. Continue NS with 20 KCL and run at 75cc/hr. Can likely stop fluids tomorrow am if BMP stable. Appreciate urology assistance. (3) Acute blood loss anemia: Plan: 2nd to #1. H/H with slow trend downward. Hematuria is still present but not as severe. Cont to trend H/H's. Consider IV Fe supplementation. Tx PRBCs if Hb <8 given active bleeding. (4) Hypothyroidism: Plan: TSH 7.005 in July 2022. TSH today 2.2. Continue levothyroxine 25 mcg PO daily. (5) Hx of prostatic malignancy: Plan: noted s/p brachytherapy for such most recent PSA undetectable (6) Acute urinary retention: Plan: Resolved with kate Consulted urology See discussion above (7) HTN (hypertension): Plan: Hold indapamide and losartan due to JEN BPs starting to trend up If Cr stable tomorrow and if BPs still high then resume losartan (8) Regional colitis: Plan: Sulfasalazine placed on hold at time of admission no symptoms to suggest active colitis (9) DVT prophylaxis: Plan: chemical means contraindicated at this time due to #1 ambulation Plan updated pt's son Alexandre by phone last evening if low-grade fevers persist then check COVID/flu/RSV swab Admission and Anticipated Discharge Date Admission Date: December 24, 2022 Subjective continues with gross hematuria but no worse than prior no significant clotting catheter working well he denies any abd pain or suprapubic pain or spasms eating - fair still tired; did not rest well last night tele overnight wnl denies new complaints Review of Systems Review of Systems: gen - denies chills despite low-grade fever cv - no chest pain pulm - no dyspnea or STALEY GI - no N/V since ER presentation; +constipation Physical Exam Physical Exam: gen - pleasant, NAD - but looks very tired today skin - mild generalized pallor neck - no JVD mouth - MMM heart - RRR, s1 s2, no murmur lungs - CTA b/l abd - soft, NT, BS+, no HSM; mildly distended - urine in kate bag bunn red - about the same as yesterday; no visible clots ext - no edema, pulses 2+ b/l Results & Data Results & Data Vital Signs (Past 12 Hours) Vital Signs Temp Pulse Pulse Resp BP Pulse Ox O2 Del Method 12/26/22 11:53 37.6 C H 90 18 142/67 H 96 Room Air 12/26/22 07:36 37.0 C 91 H 18 149/66 H 96 Room Air 12/26/22 06:32 92 H Laboratory Results Laboratory Results - last 24 hr 12/26/22 12/26/22 05:53 15:56 WBC 10.85 H RBC 2.83 L Hgb 8.8 L 8.6 L Hct 26.2 L 25.9 L MCV 92.6 MCH 31.1 MCHC 33.6 RDW Std Deviation 47.8 H RDW Coeff of Aditya 13.9 Plt Count 147 MPV 11.2 Sodium 137 Potassium 4.0 Chloride 107 Carbon Dioxide 25 Anion Gap 5 BUN 42 H Creatinine 1.37 Est Cr Clr Drug Dosing 42.4 Est GFR ( Amer) 52.6 Est GFR (Non-Af Amer) 45.4 BUN/Creatinine Ratio 30.7 H Glucose 135 H Calcium 7.7 L TSH 2.260 Diagnostic Findings Microbiology 12/24/22 15:35 Blood Aerobic Blood Culture - Preliminary No growth in Aerobic bottle after 48 hours. 12/24/22 15:35 Blood Anaerobic Blood Culture - Preliminary No growth in Anaerobic bottle after 48 hours. 12/24/22 15:20 Blood Aerobic Blood Culture - Preliminary No growth in Aerobic bottle after 48 hours. 12/24/22 15:20 Blood Anaerobic Blood Culture - Preliminary No growth in Anaerobic bottle after 48 hours. 12/25/22 10:15 Urine,Indwelling Cath Urine Culture - Preliminary No growth - Less than 1,000 colonies/mL, Final report to follow. PG Care Time/CCT Total # of Minutes Spent Total Time Spent with Patient: Total time spent is greater than 50% in coordination of care (as documented) at patient's floor/unit and/or counseling patient: Coding Level of Care Code 97792 SUB INP/OBS CARE 2MIN Diagnoses Hematuria R31.0 Hematuria type: gross Acute renal failure (ARF) N17.9 Acute renal failure type: unspecified Acute blood loss anemia D62 Hypothyroidism E03.9 Hx of prostatic malignancy Z85.46 Acute urinary retention R33.8 HTN (hypertension) I10 Regional colitis K50.10 DVT prophylaxis Z29.9 (1) Hematuria Hematuria type: gross Qualified Code(s): R31.0 - Gross hematuria (2) Acute renal failure (ARF) Acute renal failure type: unspecified Qualified Code(s): N17.9 - Acute kidney failure, unspecified
[2022-12-26 16:22] LABS: Hematocrit (blood only) 25.9 % (42.0-52.0); Hemoglobin 8.6 g/dl (14.0-18.0)
[2022-12-27] MEDS: LEVOTHYROXINE SODIUM 25 MCG TABLET PO SCH (05:32)
[2022-12-27] MEDS: NSS + 20MEQ KCL 20 MEQ/1,000 ML BAG IV SCH (05:33)
[2022-12-27 07:04] LABS: Basophils # (auto) 0.03 K/uL (0.00-0.20); Basophils % (auto) 0.3 %; Eosinophils # (auto) 0.39 K/uL (0.00-0.50); Eosinophils % (auto) 4.2 %; Hematocrit (blood only) 26.4 % (42.0-52.0); Hemoglobin 8.9 g/dl (14.0-18.0); Immature Granulocytes # (auto) 0.04 K/uL (0.01-0.20); Immature Granulocytes % (auto) 0.4 %; Mean Corpuscular Hemoglobin 31.9 pg (25.0-34.0); Mean Corpuscular Hgb Conc 33.7 g/dL (32.0-36.0); Mean Corpuscular Volume 94.6 fL (80.0-100.0); Mean Platelet Volume 10.8 fL (9.4-12.4); Monocytes # (auto) 1.41 K/uL (0.11-0.59); Monocytes % (auto) 15.2 %; Neutrophils # (auto) 6.19 K/uL (1.40-6.50); Neutrophils % (auto) 66.9 %; Platelet Count 166 K/uL (130-400); RDW Coefficient of Variation 13.6 % (11.5-14.5); RDW Standard Deviation 47.5 fL (36.4-46.3); Red Blood Count 2.79 M/uL (4.70-6.10); White Blood Count 9.26 K/ul (4.8-10.8)
[2022-12-27 07:23] LABS: BUN Creatinine Ratio 24.3 (10-20); Calcium 8.1 mg/dl (8.6-10.3); Creatinine Clr Calc Pharmacy 53.2 ml/min; Est GFR (African American) 67.9 ml/min; Est GFR (Non-African American) 58.6 ml/min; Potassium 3.9 mmol/L (3.5-5.1)
[2022-12-27 07:38] LABS: Influenza A virus by PCR Negative (Neg); Influenza B virus by PCR Negative (Neg); RSV by PCR Negative (Neg); SARS CoV2 RNA(COVID-19) Ceph NEGATIVE (Negative)
--- NOTE | 2022-12-27 08:54 | Urology Progress Note ---
Date of Service December 27, 2022 Assessment & Plan (1) Hematuria: (2) Acute urinary retention: Plan: Follow-up of gross hematuria, urinary retention, ARF Patient subjectively feeling well Afebrile, hemodynamically stable Labscreatinine has returned to baseline-1.1, WBC 9.26, hemoglobin 8.9continue to trend labs Urine and blood culture showing no growth Continues on empiric ceftriaxone Holly patent draining light melo urine today, a few small clots noted during exam which easily passed through Urine appears to be clearing No manual irrigation has been required Recommend maintain Holly catheter upon discharge Patient can be discharged with Holly catheter when medically stable We will arrange outpatient f/u with our service with repeat imaging and cystoscopy will follow Admission and Anticipated Discharge Date Admission Date: December 24, 2022 Subjective Patient seen and examined at bedside, chart reviewed No acute issues overnight Subjectively feeling well Patient denies suprapubic or flank pain Holly patent and draining a light melo, a few small clots noted on exam which easily passed through tubing No manual irrigation required overnight Denies nausea, vomiting, fever or chills Review of Systems Constitutional: as per Subjective / HPI Gastrointestinal: as per Subjective / HPI Genitourinary: + as per Subjective / HPI Physical Exam Physical Exam: General: well-appearing, no acute distress HEENT: Normocephalic Pulmonary: Nonlabored respirations Abdomen: Nondistended Extremities: Moves all 4 spontaneously Neuro: No gross deficits Psych: alert and oriented, normal mood Skin: Warm, dry, no rashes noted : Holly patent and draining a light melo, a few small clots noted on exam which easily passed through tubing Results & Data Vital Signs (Past 12 Hours) Vital Signs Temp Pulse Resp BP Pulse Ox O2 Del Method 12/27/22 07:54 36.8 C 86 18 158/72 H 96 Room Air 12/27/22 02:00 37.6 C H 84 22 160/71 H 95 Room Air 12/26/22 23:00 37.4 C 85 20 163/66 H 94 Room Air PG Care Time/CCT Total # of Minutes Spent Total Time Spent with Patient: Total time spent is greater than 50% in coordination of care (as documented) at patient's floor/unit and/or counseling patient: Coding Level of Care Code 31067 SUB INP/OBS CARE 2/35MIN Diagnoses Hematuria R31.0 Hematuria type: gross Acute urinary retention R33.8 (1) Hematuria Hematuria type: gross Qualified Code(s): R31.0 - Gross hematuria
[2022-12-27] MEDS: AMOXICILLIN 875 MG TAB PO SCH ×2 (10:29→20:00)
[2022-12-27] MEDS: CIPROFLOXACIN 500 MG TAB PO SCH ×2 (10:29→20:00)
[2022-12-27] MEDS: LOSARTAN POTASSIUM 25 MG TAB PO SCH (10:29)
[2022-12-27] MEDS: SENNA 8.6 MG TAB PO SCH (10:30)
[2022-12-27] MEDS: POLYETHYLENE (MIRALAX) 17 GM PACK PO SCH (10:30)
--- NOTE | 2022-12-27 20:16 | Hospitalist Progress Note ---
Date of Service December 27, 2022 Assessment & Plan (1) Hematuria: Plan: Gross hematuria - improving. Exact etiology uncertain but has improved while here. Diff - bladder lesion (although none seen on CT a/p) vs UTI vs prostatic in origin vs ureteral in origin. History of prostate cancer s/p brachytherapy with most recent PSA < 0.008. Gross hematuria led to clots which then caused obstruction with subsequent JEN/ARF. s/p kate placement by urology and catheter working well. H/H dropped first 48 hours of his stay -- have leveled off in 8.5-9 range. Appreciate urology consult; plans for cystoscopy as outpatient. Repeat BMP am. Repeat CBC am. IV rocephin - transitioned to cipro for gram neg, amox for enterococcus (has had such in the past). plan 7 days of each. Both Celebrex and aspirin remain on hold. Hold both at discharge from hospital. (2) Acute renal failure (ARF): Plan: Obstructive due to gross hematuria with clots in bladder. s/p kate insertion with improved creatinine and good UOP. Asa and celebrex on hold Indapamide and losartan had been held Peak Cr was 5.2, now 1.1. Resolved JEN with IV fluids + kate. Repeat BMP am. STOP IVF today. Appreciate urology assistance. (3) Acute blood loss anemia: Plan: 2nd to #1. H/H have plateaued -- Hb high 8's. Hematuria is still present but clearly nicely. Cont to trend H/H's. Plan for dose of IV Fe supplementation tomorrow (venofer 300mg x 1). (4) Hypothyroidism: Plan: TSH 7.005 in July 2022. TSH 2.2 this admission. Continue levothyroxine 25 mcg PO daily. (5) Hx of prostatic malignancy: Plan: noted s/p brachytherapy for such most recent PSA undetectable (6) Acute urinary retention: Plan: Resolved with kate Consulted urology - See discussion above (7) HTN (hypertension): Plan: Had held indapamide and losartan due to JEN BPs starting to trend up since JEN resolved losartan has been resumed repeat BMP am (8) Regional colitis: Plan: Sulfasalazine placed on hold at time of admission no symptoms to suggest active colitis resume at discharge (9) DVT prophylaxis: Plan: chemical means contraindicated at this time due to #1 ambulation Plan updated pt's son Alexandre by phone this evening COVID/flu/RSV swab today negative cleared for home by PT home tomorrow?? Admission and Anticipated Discharge Date Admission Date: December 24, 2022 Subjective patient continues to feel better worked with PT today - did well, felt steady on feet, no STALEY was cleared for home by PT urine is clearing only mild gross hematuria today no abd pain or suprapubic pain appetite wnl tele overnight wnl pt reports he has a derm appt next week - asks if we can cancel it for him Review of Systems Review of Systems: gen - low-grade temps at times but denies any chills/rigors; COVID test this am neg cv - no orthopnea, no chest pain pulm - no cough, no dyspnea, no STALEY GI - no nausea/vomiting Physical Exam Physical Exam: gen - pleasant, NAD, looks better today skin - mild generalized pallor neck - no JVD mouth - MMM heart - RRR, s1 s2, no murmur lungs - CTA b/l abd - soft, NT, BS+, no HSM, ND - urine in kate bag much more clear today ext - no edema, pulses 2+ b/l Results & Data Results & Data Vital Signs (Past 12 Hours) Vital Signs Temp Pulse Pulse Resp BP BP Pulse Ox 12/27/22 19:00 37.3 C 88 20 142/60 H 94 12/27/22 15:17 37.5 C 85 22 145/64 H 95 12/27/22 14:00 94 H 12/27/22 11:40 37.2 C 88 16 158/74 H 95 O2 Del Method 12/27/22 19:00 Room Air 12/27/22 15:17 Room Air 12/27/22 14:00 12/27/22 11:40 Room Air Laboratory Results Laboratory Results - last 24 hr 12/27/22 12/27/22 06:34 06:35 WBC 9.26 RBC 2.79 L Hgb 8.9 L Hct 26.4 L MCV 94.6 MCH 31.9 MCHC 33.7 RDW Std Deviation 47.5 H RDW Coeff of Aditya 13.6 Plt Count 166 MPV 10.8 Immature Gran % (Auto) 0.4 Neut % (Auto) 66.9 Lymph % (Auto) 13.0 [place] % (Auto) 15.2 Eos % (Auto) 4.2 Baso % (Auto) 0.3 Neut # (Auto) 6.19 Lymph # (Auto) 1.20 [place] # (Auto) 1.41 H Eos # (Auto) 0.39 Baso # (Auto) 0.03 Immature Gran # (Auto) 0.04 Sodium 139 Potassium 3.9 Chloride 108 H Carbon Dioxide 26 Anion Gap 5 BUN 27 H Creatinine 1.11 Est Cr Clr Drug Dosing 53.2 Est GFR ( Amer) 67.9 Est GFR (Non-Af Amer) 58.6 BUN/Creatinine Ratio 24.3 H Glucose 156 H Calcium 8.1 L SARS-CoV-2 (PCR) NEGATIVE Influenza Type A (PCR) Negative Influenza Type B (PCR) Negative RSV (RT-PCR) Negative PG Care Time/CCT Total # of Minutes Spent Total Time Spent with Patient: Total time spent is greater than 50% in coordination of care (as documented) at patient's floor/unit and/or counseling patient: Coding Level of Care Code 02735 SUB INP/OBS CARE 2/35MIN Diagnoses Hematuria R31.0 Hematuria type: gross Acute renal failure (ARF) N17.9 Acute renal failure type: unspecified Acute blood loss anemia D62 Hypothyroidism E03.9 Hx of prostatic malignancy Z85.46 Acute urinary retention R33.8 HTN (hypertension) I10 Regional colitis K50.10 DVT prophylaxis Z29.9 (1) Hematuria Hematuria type: gross Qualified Code(s): R31.0 - Gross hematuria (2) Acute renal failure (ARF) Acute renal failure type: unspecified Qualified Code(s): N17.9 - Acute kidney failure, unspecified
[2022-12-27] MEDS: AMOXICILLIN SUSP 400 MG/5 ML PO SCH (21:38)
[2022-12-28] MEDS: LEVOTHYROXINE SODIUM 25 MCG TABLET PO SCH (06:03)
[2022-12-28 06:45] LABS: Hematocrit (blood only) 25.9 % (42.0-52.0); Hemoglobin 8.7 g/dl (14.0-18.0); Mean Corpuscular Hemoglobin 31.8 pg (25.0-34.0); Mean Corpuscular Hgb Conc 33.6 g/dL (32.0-36.0); Mean Corpuscular Volume 94.5 fL (80.0-100.0); Mean Platelet Volume 10.7 fL (9.4-12.4); Platelet Count 174 K/uL (130-400); RDW Coefficient of Variation 13.5 % (11.5-14.5); RDW Standard Deviation 46.6 fL (36.4-46.3); Red Blood Count 2.74 M/uL (4.70-6.10); White Blood Count 7.52 K/ul (4.8-10.8)
[2022-12-28 06:50] LABS: Calcium 8.1 mg/dl (8.6-10.3); Est GFR (Non-African American) 61.2 ml/min; Potassium 3.8 mmol/L (3.5-5.1)
[2022-12-28 07:09] LABS: Ferritin 66.1 ng/ml (8-388)
[2022-12-28 07:59] LABS: Folate (Folic Acid),Ser orPlas 12.17 ng/ml (>5.38)
[2022-12-28] MEDS ORDERED: IRON SUCROSE 300 MG in SODIUM CHLORIDE 0.9% 250 ML IV ONE (08:00)
[2022-12-28] MEDS: LOSARTAN POTASSIUM 25 MG TAB PO SCH (08:01)
[2022-12-28] MEDS: SENNA 8.6 MG TAB PO SCH (08:01)
[2022-12-28] MEDS: CIPROFLOXACIN 500 MG TAB PO SCH ×2 (08:01→21:10)
[2022-12-28] MEDS: POLYETHYLENE (MIRALAX) 17 GM PACK PO SCH (08:03)
[2022-12-28] MEDS: AMOXICILLIN SUSP 400 MG/5 ML PO SCH ×2 (08:07→21:11)
--- NOTE | 2022-12-28 09:19 | Urology Progress Note ---
Date of Service December 28, 2022 Assessment & Plan (1) Hematuria: (2) Acute urinary retention: Plan: Follow-up of gross hematuria, urinary retention, ARF Patient subjectively feeling well Afebrile, hemodynamically stable Labscreatinine 1.07, WBC 7.52, hemoglobin 8.7continue to trend labs Urine and blood culture showing no growth Treated with Ceftriaxone and transitioned to PO Amoxicillin and Ciprofloxacin - agree w/ continuing antibiotics Holly patent and draining appropriately - urine continues to clear with time/abx No manual irrigation has been required Recommend maintain Holly catheter upon discharge Patient can be discharged with Holly catheter when medically stable We will arrange outpatient f/u with our service with repeat imaging and cystoscopy will sign off, please contact our service with any additional questions or concerns Admission and Anticipated Discharge Date Admission Date: December 24, 2022 Subjective Patient subjectively feeling well Denies pain Holly is patent and draining appropriately, no manual irrigation required Urine is clearing Offers no complaints Review of Systems Constitutional: as per Subjective / HPI Gastrointestinal: as per Subjective / HPI Genitourinary: + as per Subjective / HPI Physical Exam Physical Exam: General: well-appearing, no acute distress HEENT: Normocephalic Pulmonary: Nonlabored respirations Abdomen: Nondistended Extremities: Moves all 4 spontaneously Neuro: No gross deficits Psych: alert and oriented, normal mood Skin: Warm, dry, no rashes noted : Holly patent and draining, clearer today, no clots Results & Data Vital Signs (Past 12 Hours) Vital Signs Temp Pulse Pulse Pulse Resp BP Pulse Ox 12/28/22 07:45 36.8 C 82 16 134/90 94 12/28/22 05:57 77 12/28/22 02:09 36.9 C 81 20 152/95 H 95 12/28/22 00:00 37.2 C 91 H 18 142/62 H 95 12/27/22 23:25 90 O2 Del Method 12/28/22 07:45 Room Air 12/28/22 05:57 12/28/22 02:09 Room Air 12/28/22 00:00 Room Air 12/27/22 23:25 PG Care Time/CCT Total # of Minutes Spent Total Time Spent with Patient: Total time spent is greater than 50% in coordination of care (as documented) at patient's floor/unit and/or counseling patient: Coding Level of Care Code 00049 SUB INP/OBS CARE 235MIN Diagnoses Hematuria R31.0 Hematuria type: gross Acute urinary retention R33.8 (1) Hematuria Hematuria type: gross Qualified Code(s): R31.0 - Gross hematuria
[2022-12-28] MEDS: CYANOCOBALAMIN (B-12) 500 MCG TABLET PO SCH (10:05)
--- NOTE | 2022-12-28 12:04 | XCELERA ---
[id number] [id number]
--- NOTE | 2022-12-28 20:20 | Hospitalist Progress Note ---
Date of Service December 28, 2022 Assessment & Plan (1) Hematuria: Plan: Gross hematuria - cont to improve. Exact etiology uncertain. Diff dx - bladder lesion (although none seen on CT a/p) vs UTI vs prostatic in origin vs ureteral in origin. History of prostate cancer s/p brachytherapy with most recent PSA < 0.008. Gross hematuria led to clots which then caused obstruction with subsequent JEN/ARF. s/p kate placement by urology and catheter working well. H/H dropped first 48 hours of his stay -- have leveled off in 8.5-9 range since. Appreciate urology consult; plans for cystoscopy as outpatient. Repeat BMP am. Repeat CBC am. IV rocephin was used initially (empiric) for presumed UTI. Transitioned to cipro for gram neg, amox for enterococcus (has had such in the past). plan 7 days of each. Both Celebrex and aspirin remain on hold. Hold both at discharge from hospital. Had low grade fever today of 37.7 -- will repeat u/a and urine cx to ensure no new UTI or different pathogen. (2) Acute renal failure (ARF): Plan: Obstructive due to gross hematuria with clots in bladder. s/p kate insertion with improved creatinine and good UOP. Asa and celebrex on hold Indapamide and losartan had been held Peak Cr was 5.2, now 1.1. Resolved JEN with IV fluids + kate. Repeat BMP am. Appreciate urology assistance. (3) Acute blood loss anemia: Plan: 2nd to #1. H/H have plateaued -- Hb high 8's. Hematuria continues to clear. Cont to trend H/H's. Give venofer 300mg IV x 1 now, then again tomorrow. (4) Hypothyroidism: Plan: TSH 7.005 in July 2022. TSH 2.2 this admission. Continue levothyroxine 25 mcg PO daily. (5) Hx of prostatic malignancy: Plan: noted s/p brachytherapy for such most recent PSA undetectable (6) Acute urinary retention: Plan: Resolved with kate Consulted urology - See discussion above Will need kate at d/c Pt and family counseled about the kate (7) HTN (hypertension): Plan: Had held indapamide and losartan due to JEN losartan has been resumed BPs acceptable repeat BMP am (8) Regional colitis: Plan: Sulfasalazine placed on hold at time of admission no symptoms to suggest active colitis resume at discharge (9) DVT prophylaxis: Plan: chemical means contraindicated at this time due to #1 ambulation Plan updated pt's sons at bedside today cleared for home by PT home tomorrow?? uncertain due to low-grade fever Admission and Anticipated Discharge Date Admission Date: December 24, 2022 Subjective no new complaints feeling good eating well 2 sons at bedside today discussed plan of care, questions answered tele - 10 beat run of NSVT this am - no symptoms echo - EF wnl; normal LV wall motion patient lives with grandson who attends [employer] but sons are nearby geographically kate - urine clearly nicely, just very mild hematuria tolerated venofer today Review of Systems Review of Systems: gen - no chills; mild fatigue only cv - no chest pain or orthopnea pulm - no dyspnea or STALEY GI - no abd pain/nausea/emesis Physical Exam Physical Exam: gen - pleasant, NAD, looks well skin - mild generalized pallor - unchanged neck - no JVD mouth - MMM heart - RRR, s1 s2, no murmur lungs - CTA b/l abd - soft, NT, BS+, no HSM, ND - urine in kate bag nearing more normal color; minimal hematuria ext - no edema, pulses 2+ b/l Results & Data Results & Data Vital Signs (Past 12 Hours) Vital Signs Temp Pulse Pulse Pulse Resp BP Pulse Ox 12/28/22 19:43 37.7 C H 91 H 20 149/67 H 93 12/28/22 15:34 37.3 C 85 18 141/63 H 96 12/28/22 14:24 91 H 12/28/22 11:52 36.7 C 78 12 142/78 H 93 12/28/22 10:42 O2 Del Method 12/28/22 19:43 Room Air 12/28/22 15:34 Room Air 12/28/22 14:24 12/28/22 11:52 Room Air 12/28/22 10:42 Room Air Laboratory Results Laboratory Results - last 24 hr 12/28/22 06:01 WBC 7.52 RBC 2.74 L Hgb 8.7 L Hct 25.9 L MCV 94.5 MCH 31.8 MCHC 33.6 RDW Std Deviation 46.6 H RDW Coeff of Aditya 13.5 Plt Count 174 MPV 10.7 Sodium 139 Potassium 3.8 Chloride 108 H Carbon Dioxide 27 Anion Gap 4 BUN 16 Creatinine 1.07 Est Cr Clr Drug Dosing 55.0 Est GFR ( Amer) 71.0 Est GFR (Non-Af Amer) 61.2 BUN/Creatinine Ratio 15.0 Glucose 156 H Calcium 8.1 L Iron 20 L TIBC 221 L Unsaturated IBC 201 Transferrin % Sat 9 L Ferritin 66.1 Vitamin B12 318 Folate 12.17 PG Care Time/CCT Total # of Minutes Spent Total Time Spent with Patient: Total time spent is greater than 50% in coordination of care (as documented) at patient's floor/unit and/or counseling patient: Coding Level of Care Code 27078 SUB INP/OBS CARE 2/35MIN Diagnoses Hematuria R31.0 Hematuria type: gross Acute renal failure (ARF) N17.9 Acute renal failure type: unspecified Acute blood loss anemia D62 Hypothyroidism E03.9 Hx of prostatic malignancy Z85.46 Acute urinary retention R33.8 HTN (hypertension) I10 Regional colitis K50.10 DVT prophylaxis Z29.9 (1) Hematuria Hematuria type: gross Qualified Code(s): R31.0 - Gross hematuria (2) Acute renal failure (ARF) Acute renal failure type: unspecified Qualified Code(s): N17.9 - Acute kidney failure, unspecified
[2022-12-29 01:25] LABS: Appearance Urine Turbid (Clear); Bacteria Urine Automated Negative (Negative); Blood Urine 3+ (Negative); Color Urine Orange; Glucose Urine UA Negative (Negative); Ketones Urine Negative (Negative); Leukocyte Esterase Urine 1+ (Negative); Nitrite Urine Negative (Negative); Protein Urine 2+ (Negative); RBC Urine Automated >30 /hpf (0-4); Specific Gravity Urine 1.017 (1.000-1.030); Urobilinogen Urine Negative (Negative)
[2022-12-29 01:26] LABS: Bilirubin Urine 1+ (Negative)
[2022-12-29] MEDS: LEVOTHYROXINE SODIUM 25 MCG TABLET PO SCH (06:20)
[2022-12-29 06:48] LABS: Hematocrit (blood only) 26.3 % (42.0-52.0); Hemoglobin 8.7 g/dl (14.0-18.0); Mean Corpuscular Hemoglobin 31.1 pg (25.0-34.0); Mean Corpuscular Hgb Conc 33.1 g/dL (32.0-36.0); Mean Corpuscular Volume 93.9 fL (80.0-100.0); Mean Platelet Volume 10.5 fL (9.4-12.4); Platelet Count 197 K/uL (130-400); RDW Coefficient of Variation 13.3 % (11.5-14.5); RDW Standard Deviation 46.1 fL (36.4-46.3)
[2022-12-29 07:29] LABS: BUN Creatinine Ratio 12.5 (10-20); Calcium 8.2 mg/dl (8.6-10.3); Creatinine Clr Calc Pharmacy 52.4 ml/min; Est GFR (African American) 67.1 ml/min; Est GFR (Non-African American) 57.9 ml/min; Potassium 3.6 mmol/L (3.5-5.1)
[2022-12-29] MEDS ORDERED: IRON SUCROSE 300 MG in SODIUM CHLORIDE 0.9% 250 ML IV ONE (08:00)
[2022-12-29] MEDS: POLYETHYLENE (MIRALAX) 17 GM PACK PO SCH (08:30)
[2022-12-29] MEDS: SENNA 8.6 MG TAB PO SCH (08:30)
[2022-12-29] MEDS: LOSARTAN POTASSIUM 25 MG TAB PO SCH (08:31)
[2022-12-29] MEDS: CYANOCOBALAMIN (B-12) 500 MCG TABLET PO SCH (08:31)
[2022-12-29] MEDS: CIPROFLOXACIN 500 MG TAB PO SCH ×2 (08:31→20:31)
[2022-12-29] MEDS: AMOXICILLIN SUSP 400 MG/5 ML PO SCH ×2 (09:21→20:31)
--- NOTE | 2022-12-29 13:20 | Hospitalist Progress Note ---
Date of Service December 29, 2022 Assessment & Plan (1) Hematuria: Plan: Gross hematuria - cont to improve. Exact etiology uncertain. Diff dx - bladder lesion (although none seen on CT a/p) vs UTI vs prostatic in origin vs ureteral in origin. History of prostate cancer s/p brachytherapy with most recent PSA < 0.008. Gross hematuria led to clots which then caused obstruction with subsequent JEN/ARF. s/p kate placement by urology and catheter working well. H/H dropped first 48 hours of his stay -- have leveled off in 8.5-9 range since. Appreciate urology consult; plans for cystoscopy as outpatient. I spoke with Dr Garnett, on-call urology, re: low-grade fevers. ?component of prostatitis causing the low-grade temps? Repeat u/a overnight still dirty and microscopy with budding yeast. Await culture. Empiric IV rocephin was used initially for presumed UTI but culture from admission negative. Transitioned to cipro for gram neg, amox for enterococcus (has had such in the past). plan 7 days of each. Both Celebrex and aspirin remain on hold. Hold both at discharge from hospital. (2) Low grade fever: Plan: etiology? 2nd to presumed UTI? but temps continue despite empiric cipro + amoxicillin recent COVID testing negative reports diarrhea --> check cdiff reports cough --> check cxr blood cx's from admission negative check a procal and crp in am no discharge today --> follow temps overnight (3) Acute renal failure (ARF): Plan: Obstructive due to gross hematuria with clots in bladder. s/p kate insertion with improved creatinine and good UOP. Asa and celebrex on hold Indapamide and losartan had been held initially Peak Cr was 5.2, now 1.1. Repeat BMP am. Appreciate urology assistance. (4) Acute blood loss anemia: Plan: 2nd to #1. H/H have plateaued -- Hb high 8's. Hematuria continues to clear. Cont to trend H/H's. Give venofer 300mg IV x 1 again today - dose #2. Plan dose #3 tomorrow. (5) Hypothyroidism: Plan: TSH 7.005 in July 2022. TSH 2.2 this admission. Continue levothyroxine 25 mcg PO daily. (6) Hx of prostatic malignancy: Plan: noted s/p brachytherapy for such most recent PSA undetectable (7) Acute urinary retention: Plan: Resolved with kate Consulted urology - See discussion above Will need kate at d/c Pt and family counseled about the kate (8) HTN (hypertension): Plan: Had held indapamide and losartan due to JEN losartan has been resumed BPs acceptable repeat BMP am (9) Regional colitis: Plan: Sulfasalazine placed on hold at time of admission no symptoms to suggest active colitis resume at discharge (10) DVT prophylaxis: Plan: chemical means contraindicated at this time due to #1 he is ambulating well Plan updated pt's sons at bedside yesterday cleared for home by PT no discharge today due to low-grade fevers watch again overnight additional w/u as noted above appreciate Dr Garnett consult & recs Admission and Anticipated Discharge Date Admission Date: December 24, 2022 Subjective patient sitting in chair during the visit tele overnight wnl offers no new complaints other than mild nonproductive cough, as well as several loose stools had at least 3 loose stools yesterday, and 2 this am urine continues to clear despite low-grade temps/fevers he does not notice them and "I feel good" he states eating/drinking well Review of Systems Review of Systems: gen - no rigors / chills cv - no chest pain pulm - no dyspnea or SATLEY GI - no nausea/emesis HENT - no sore throat, runny nose, or ear pain musculo - denies myalgias skin - no rashes Physical Exam Physical Exam: gen - pleasant, NAD, looks well; sitting in chair skin - mild generalized pallor - unchanged neck - no JVD mouth - MMM heart - RRR, s1 s2, no murmur lungs - CTA b/l - no rales abd - soft, NT, BS+, no HSM, ND - urine in kate bag with mild hematuria only ext - no edema, pulses 2+ b/l Results & Data Results & Data Vital Signs (Past 12 Hours) Vital Signs Temp Pulse Pulse Resp BP Pulse Ox O2 Del Method 12/29/22 11:58 37.4 C 87 18 155/67 H 94 Room Air 12/29/22 09:50 77 12/29/22 07:49 37.4 C 85 18 137/70 94 Room Air 12/29/22 04:04 37.5 C 89 20 160/71 H 96 Room Air 12/29/22 03:06 Room Air Laboratory Results Laboratory Results - last 24 hr 12/29/22 12/29/22 01:00 06:11 WBC 7.70 RBC 2.80 L Hgb 8.7 L Hct 26.3 L MCV 93.9 MCH 31.1 MCHC 33.1 RDW Std Deviation 46.1 RDW Coeff of Aditya 13.3 Plt Count 197 MPV 10.5 Sodium 139 Potassium 3.6 Chloride 107 Carbon Dioxide 27 Anion Gap 5 BUN 14 Creatinine 1.12 Est Cr Clr Drug Dosing 52.4 Est GFR ( Amer) 67.1 Est GFR (Non-Af Amer) 57.9 BUN/Creatinine Ratio 12.5 Glucose 161 H Calcium 8.2 L Urine Color [place] Urine Appearance Turbid A Urine pH 5.0 Ur Specific [place] 1.017 Urine Protein 2+ H Urine Glucose (UA) Negative Urine Ketones Negative Urine Blood 3+ H Urine Nitrite Negative Urine Bilirubin 1+ H Urine Urobilinogen Negative Ur Leukocyte Esterase 1+ H Urine WBC (Auto) 10-30 H Urine RBC (Auto) >30 H U Hyaline Cast (Auto) 1-5 U Epithel Cells (Auto) 10-20 H Urine Bacteria (Auto) Negative Urine Yeast Budding A Diagnostic Findings urine cx pending PG Care Time/CCT Total # of Minutes Spent Total Time Spent with Patient: Total time spent is greater than 50% in coordination of care (as documented) at patient's floor/unit and/or counseling patient: Coding Level of Care Code 82607 SUB INP/OBS CARE 3/50MIN Diagnoses Hematuria R31.0 Hematuria type: gross Low grade fever R50.9 Acute renal failure (ARF) N17.9 Acute renal failure type: unspecified Acute blood loss anemia D62 Hypothyroidism E03.9 Hx of prostatic malignancy Z85.46 Acute urinary retention R33.8 HTN (hypertension) I10 Regional colitis K50.10 DVT prophylaxis Z29.9 (1) Hematuria Hematuria type: gross Qualified Code(s): R31.0 - Gross hematuria (3) Acute renal failure (ARF) Acute renal failure type: unspecified Qualified Code(s): N17.9 - Acute kidney failure, unspecified
--- NOTE | 2022-12-29 13:45 | Urology Progress Note ---
Date of Service December 29, 2022 Assessment & Plan (1) Hematuria: Plan: hematuria continues to clear. No need for continuous irrigation at this time. Can hand-irrigate if catheter becomes obstructed, but this has not been required recently. Outpatient followup is schedule. (2) Acute urinary retention: Plan: Retention managed with kate catheter. Will plan on voiding trial at followup visit in the office. (3) Acute UTI (urinary tract infection): Plan: Concern for potential low-grade smoldering UTI in the setting of fluctuated temperature curve. Cultures have been negative - repeat culture pending. Remains on Cipro and Amoxicillin. Reasonable to keep on oral antibiotics while repeat culture is drawn. Potentially there could be a prostatitis, which should be covered with cipro. Plan continue antibiotics, follow up repeat urine culture. He is already scheduled for outpatient hematuria workup. Admission and Anticipated Discharge Date Admission Date: December 24, 2022 Subjective feeling well, no fevers/chills. tolerating a diet w/o nausea or vomiting. no issues with kate catheter, urine has cleared and no more clots present. no leukocytosis, Hb remains stable. Urine culture from 12/25 with no growth. repeat culture pending. Physical Exam Physical Exam: well appearing, NAD Genitourinary: kate catheter draining concentrated urine, no clots appreciated. Results & Data Vital Signs (Past 12 Hours) Vital Signs Temp Pulse Pulse Resp BP Pulse Ox O2 Del Method 12/29/22 11:58 37.4 C 87 18 155/67 H 94 Room Air 12/29/22 09:50 77 12/29/22 07:49 37.4 C 85 18 137/70 94 Room Air 12/29/22 04:04 37.5 C 89 20 160/71 H 96 Room Air 12/29/22 03:06 Room Air PG Care Time/CCT Total # of Minutes Spent Total Time Spent with Patient: Total time spent is greater than 50% in coordination of care (as documented) at patient's floor/unit and/or counseling patient: Coding Level of Care Code 49374 SUB INP/OBS CARE 1/25MIN Diagnoses Hematuria R31.0 Hematuria type: gross Acute urinary retention R33.8 Acute UTI (urinary tract infection) N39.0 (1) Hematuria Hematuria type: gross Qualified Code(s): R31.0 - Gross hematuria
[2022-12-30] MEDS: LEVOTHYROXINE SODIUM 25 MCG TABLET PO SCH (06:07)
[2022-12-30 06:50] LABS: Hematocrit (blood only) 25.9 % (42.0-52.0); Hemoglobin 8.5 g/dl (14.0-18.0)
[2022-12-30 06:55] LABS: C Reactive Protein 4.22 mg/dl (0-0.5); Calcium 8.4 mg/dl (8.6-10.3); Creatinine Clr Calc Pharmacy 54.5 ml/min; Est GFR (African American) 70.2 ml/min; Est GFR (Non-African American) 60.5 ml/min; Potassium 3.7 mmol/L (3.5-5.1)
[2022-12-30] MEDS ORDERED: IRON SUCROSE 300 MG in SODIUM CHLORIDE 0.9% 250 ML IV ONE (07:45)
[2022-12-30] MEDS: LOSARTAN POTASSIUM 25 MG TAB PO SCH (08:14)
[2022-12-30] MEDS: CIPROFLOXACIN 500 MG TAB PO SCH ×2 (08:14→20:20)
[2022-12-30] MEDS: CYANOCOBALAMIN (B-12) 500 MCG TABLET PO SCH (08:14)
[2022-12-30] MEDS: SENNA 8.6 MG TAB PO SCH (08:15)
[2022-12-30] MEDS: POLYETHYLENE (MIRALAX) 17 GM PACK PO SCH (08:15)
[2022-12-30] MEDS: AMOXICILLIN SUSP 400 MG/5 ML PO SCH ×2 (09:04→20:34)
--- NOTE | 2022-12-30 09:48 | XRay Report ---
XR chest 2V PA/lateral HISTORY: low-grade fever, cough COMPARISON: Chest 12/24/2022. FINDINGS: There are low lung volumes. No pneumothorax. No pleural effusions. No new focal lung consol idations to suggest a pneumonia. No evidence for pulmonary edema. The cardiac silhouette is normal in size. IMPRESSION: No acute process. ACT 112: Negative or not required by law. Electronically signed by: Jaleel Trejo M.D. 12/30/2022 9:46 AM
[2022-12-30] MEDS ORDERED: ACETAMINOPHEN 500 MG TAB PO PRN (20:07)
--- NOTE | 2022-12-30 20:16 | Hospitalist Progress Note ---
Date of Service December 30, 2022 Assessment & Plan (1) Hematuria: Plan: Gross hematuria - had been improving, then had clots overnight causing kate obstruction and needed hand irrigation. H/H - despite 3 runs of IV venofer - have not really increased c/w ongoing blood loss. Exact etiology of hematuria uncertain. Diff dx - bladder lesion (although none seen on CT a/p) vs UTI vs prostatic in origin vs ureteral in origin. History of prostate cancer s/p brachytherapy with most recent PSA < 0.008. I spoke with Dr Garnett - oncall urology. In light of clots overnight, low-grade fevers, etc - make NPO at midnight and eval tomorrow for need for cystoscopy. Pt aware of this plan. At admission gross hematuria led to clots which then caused obstruction with subsequent JEN/ARF. s/p kate placement by urology and catheter working well. H/H dropped first 48-72 hours of his stay -- have leveled off in 8.5-9 range since. ?component of prostatitis causing the low-grade temps? but he is on cipro/amox (latter for enterococcal coverage) and continues with temps. Repeat urine cx from 12/28 has resulted fully negative. Empiric IV rocephin was used initially for presumed UTI but culture from admission negative. Transitioned to cipro for gram neg, amox for enterococcus (has had such in the past). Both Celebrex and aspirin remain on hold. Hold both at discharge from hospital. (2) Low grade fever: Plan: ongoing. temp this evening 38.1 etiology? 2nd to presumed UTI? but temps continue despite empiric cipro + amoxicillin recent COVID testing negative reports diarrhea --> checked cdiff --> negative reports cough --> checked cxr --> negative for infiltrates blood cx's from admission negative will repeat blood cx's this evening due to temp of 38.1 of note -- crp only mildly high; procal is negative if infectious source not found for fever consider VTE work-up (3) Acute renal failure (ARF): Plan: Obstructive due to gross hematuria with clots in bladder. s/p kate insertion with improved creatinine and good UOP. Asa and celebrex on hold Indapamide and losartan had been held initially Peak Cr was 5.2 Now Cr normal for several days. Repeat BMP am. Appreciate urology assistance. (4) Acute blood loss anemia: Plan: 2nd to #1. H/H have plateaued -- Hb high 8's. Cont to trend H/H's. Give venofer 300mg IV x 1 again today - dose #3. (5) Hypothyroidism: Plan: TSH 7.005 in July 2022. TSH 2.2 this admission. Continue levothyroxine 25 mcg PO daily. (6) Hx of prostatic malignancy: Plan: noted s/p brachytherapy for such most recent PSA undetectable (7) Acute urinary retention: Plan: Resolved with kate Consulted urology - See discussion above Will need kate at hospital d/c Pt and family counseled about the kate (8) HTN (hypertension): Plan: Had held indapamide and losartan due to JEN losartan has been resumed BPs still high --> add norvasc 2.5mg daily defer on indapamide due to recent kidney issues repeat BMP am (9) Regional colitis: Plan: Sulfasalazine placed on hold at time of admission no symptoms to suggest active colitis resume at discharge (10) DVT prophylaxis: Plan: chemical means contraindicated at this time due to #1 he is ambulating well SCDs knee highs ordered Plan updated pt's sons at bedside 12/28 grandson updated today at bedside cleared for home by PT no discharge today due to low-grade fevers and ongoing hematuria care d/w Dr Garnett from urology Admission and Anticipated Discharge Date Admission Date: December 24, 2022 Subjective no loose stool since yesterday am overnight his kate clogged; needed manual irrigation to resolve the issue continues with gross hematuria - a little worse in color than yesterday continues with low-grade temps despite the above he feels well anxious to go home, but understands why he should remain hospitalized he did walk with his sons yesterday in hallway and felt ok grandson at bedside today Review of Systems Review of Systems: cv - no chest pain, no orthopnea pulm - no dyspnea, no STALEY GI - no abd pain/nausea/vomiting - did not have suprapubic pain last pm even when catheter clogged gen - he does not realize he is having fevers; denies chills musculo - denies leg pains Physical Exam Physical Exam: gen - pleasant, NAD - looks tired skin - mild generalized pallor - unchanged neck - no JVD mouth - MMM heart - RRR, s1 s2, no murmur lungs - CTA b/l - no rales abd - soft, NT, BS+, no HSM, ND - urine in kate bag with moderate hematuria ext - no edema, pulses 2+ b/l; symmetric calves Results & Data Results & Data Vital Signs (Past 12 Hours) Vital Signs Temp Pulse Pulse Resp BP Pulse Ox O2 Del Method 12/30/22 19:38 38.1 C H 97 H 18 169/76 H 94 Room Air 12/30/22 16:50 61 12/30/22 16:15 91 H 12/30/22 15:37 37.5 C 96 H 18 162/73 H 94 Room Air 12/30/22 11:26 37.4 C 86 18 175/71 H 97 Room Air Laboratory Results Laboratory Results - last 24 hr 12/30/22 12/30/22 06:13 15:28 Hgb 8.5 L Hct 25.9 L Sodium 139 Potassium 3.7 Chloride 106 Carbon Dioxide 27 Anion Gap 6 BUN 14 Creatinine 1.08 Est Cr Clr Drug Dosing 54.5 Est GFR ( Amer) 70.2 Est GFR (Non-Af Amer) 60.5 BUN/Creatinine Ratio 13.0 Glucose 157 H Estimat Average Glucose Pending Hemoglobin A1c Pending Calcium 8.4 L C-Reactive Protein 4.22 H Procalcitonin 0.15 Stl C. diff Tox B Gene Negative Cdiff Gene Diagnostic Findings Chest X-Ray 12/30/22 07:00 XR chest 2V PA/lateral HISTORY: low-grade fever, cough COMPARISON: Chest 12/24/2022. FINDINGS: There are low lung volumes. No pneumothorax. No pleural effusions. No new focal lung consolidations to suggest a pneumonia. No evidence for pulmonary edema. The cardiac silhouette is normal in size. IMPRESSION: No acute process. ACT 112: Negative or not required by law. Electronically signed by: Jaleel Trejo M.D. 12/30/2022 9:46 AM PG Care Time/CCT Total # of Minutes Spent Total Time Spent with Patient: Total time spent is greater than 50% in coordination of care (as documented) at patient's floor/unit and/or counseling patient: Coding Level of Care Code 79158 SUB INP/OBS CARE 3/50MIN Diagnoses Hematuria R31.0 Hematuria type: gross Low grade fever R50.9 Acute renal failure (ARF) N17.9 Acute renal failure type: unspecified Acute blood loss anemia D62 Hypothyroidism E03.9 Hx of prostatic malignancy Z85.46 Acute urinary retention R33.8 HTN (hypertension) I10 Regional colitis K50.10 DVT prophylaxis Z29.9 (1) Hematuria Hematuria type: gross Qualified Code(s): R31.0 - Gross hematuria (3) Acute renal failure (ARF) Acute renal failure type: unspecified Qualified Code(s): N17.9 - Acute kidney failure, unspecified
[2022-12-31] MEDS: LEVOTHYROXINE SODIUM 25 MCG TABLET PO SCH (05:55)
[2022-12-31 07:14] LABS: BUN Creatinine Ratio 10.3 (10-20); Calcium 8.3 mg/dl (8.6-10.3); Est GFR (Non-African American) 61.2 ml/min; Potassium 3.8 mmol/L (3.5-5.1)
[2022-12-31 07:19] LABS: Basophils # (auto) 0.02 K/uL (0.00-0.20); Basophils % (auto) 0.2 %; Eosinophils # (auto) 0.36 K/uL (0.00-0.50); Eosinophils % (auto) 4.4 %; Hematocrit (blood only) 27.3 % (42.0-52.0); Hemoglobin 8.8 g/dl (14.0-18.0); Immature Granulocytes # (auto) 0.06 K/uL (0.01-0.20); Immature Granulocytes % (auto) 0.7 %; Lymphocytes # (auto) 0.88 K/uL (1.20-3.40); Lymphocytes % (auto) 10.6 %; Mean Corpuscular Hemoglobin 30.7 pg (25.0-34.0); Mean Corpuscular Hgb Conc 32.2 g/dL (32.0-36.0); Mean Corpuscular Volume 95.1 fL (80.0-100.0); Mean Platelet Volume 10.4 fL (9.4-12.4); Monocytes # (auto) 1.19 K/uL (0.11-0.59); Monocytes % (auto) 14.4 %; Neutrophils # (auto) 5.76 K/uL (1.40-6.50); Neutrophils % (auto) 69.7 %; Platelet Count 228 K/uL (130-400); RDW Coefficient of Variation 13.7 % (11.5-14.5); RDW Standard Deviation 46.9 fL (36.4-46.3); Red Blood Count 2.87 M/uL (4.70-6.10); White Blood Count 8.27 K/ul (4.8-10.8)
[2022-12-31] MEDS: CYANOCOBALAMIN (B-12) 500 MCG TABLET PO SCH (07:52)
[2022-12-31] MEDS: LOSARTAN POTASSIUM 25 MG TAB PO SCH (07:52)
[2022-12-31] MEDS: AMOXICILLIN SUSP 400 MG/5 ML PO SCH (07:53)
[2022-12-31] MEDS: CIPROFLOXACIN 500 MG TAB PO SCH (07:53)
[2022-12-31] MEDS: SENNA 8.6 MG TAB PO SCH (07:54)
[2022-12-31] MEDS: POLYETHYLENE (MIRALAX) 17 GM PACK PO SCH (07:54)
[2022-12-31 08:46] LABS: Estimated Average Glucose 134 mg/dl; Hemoglobin A1C 6.3 % (4.5-5.6)
[2022-12-31] MEDS: amLODIPine BESYLATE 5 MG TAB PO SCH (09:44)
--- NOTE | 2022-12-31 12:23 | Urology Progress Note ---
Date of Service December 31, 2022 Assessment & Plan (1) Hematuria: (2) Acute urinary retention: (3) Acute UTI (urinary tract infection): Plan Follow-up of gross hematuria Patient subjectively feeling well Afebrile, hemodynamically stable Labs WBC 8.27 hemoglobin 8.8, Creatinine 1.07 continue to trend labs Urine and blood culture showing no growth Treated with Ceftriaxone and transitioned to PO Amoxicillin and Ciprofloxacin - agree w/ continuing antibiotics Hematuria had been improving, then had clots yesterday requiring manual irrigation. Continue to monitor. Concern for potential low-grade smoldering UTI in the setting of fluctuated temperature curve. Tmax 38.1 yesterday 12/30. Afebrile so far today. Cultures have been negative - repeat culture pending. Remains on Cipro and Amoxicillin. Reasonable to keep on oral antibiotics while repeat culture is drawn. Potentially there could be a prostatitis, which should be covered with Cipro. Plan- Continue antibiotics. Given intermittent gross hematuria, will get updated imaging with a CT abdomen pelvis. Maintain Holly catheter and can hand irrigate as needed. Urology will follow. Admission and Anticipated Discharge Date Admission Date: December 24, 2022 Subjective Patient examined at bedside this AM. Awake, resting in bed on arrival. No acute distress. Has been NPO. Holly currently intact, draining clear yellow urine with some sediment. Nursing irrigated yesterday evening around 5 PM. Denies fevers, chills, nausea, vomiting. He did have a temp of 38.1 yesterday at 1938. He denies any pain or discomfort at present. Review of Systems Constitutional: as per Subjective / HPI Gastrointestinal: as per Subjective / HPI Genitourinary: + as per Subjective / HPI Physical Exam Constitutional: no acute distress Respiratory: no respiratory distress and no labored breathing Musculoskeletal: Head/Neck/Chest: normocephalic Skin: No visible rashes or lesions to exposed skin areas Neurologic: moves all extremities and awake Psychiatric: A+Ox3, euthymic affect Genitourinary: Holly intact, urine is clear yellow with sediment Results & Data Vital Signs (Past 12 Hours) Vital Signs Temp Pulse Pulse Resp BP Pulse Ox O2 Del Method 12/31/22 08:19 87 12/31/22 07:47 37.3 C 81 18 165/72 H 95 Room Air 12/31/22 03:21 36.9 C 80 18 159/69 H 96 Room Air 12/30/22 23:13 37.0 C 81 18 134/64 95 Room Air PG Care Time/CCT Total # of Minutes Spent Total Time Spent with Patient: Total time spent is greater than 50% in coordination of care (as documented) at patient's floor/unit and/or counseling patient: Coding Level of Care Code 68957 SUB INP/OBS CARE 2/35MIN Diagnoses Hematuria R31.0 Hematuria type: gross Acute urinary retention R33.8 Acute UTI (urinary tract infection) N39.0 (1) Hematuria Hematuria type: gross Qualified Code(s): R31.0 - Gross hematuria
[2022-12-31] MEDS ORDERED: OPTIRAY 320 100ml IV ONE (13:28)
--- NOTE | 2022-12-31 14:06 | CT Scan Report ---
CT abdomen pelvis wo/w con CLINICAL HISTORY: gross hematuria TECHNIQUE: Helical axial images of the abdomen and pelvis were obtained. Automated dose lowering tech niques and/or adjustment according to patient size were utilized for this exam. This exam was perfor med with and without intravenous contrast. CT DOSE: 3524.21 mGy.cm COMPARISON: Comparison is made to CT abdomen pelvis 12/24/2022 FINDINGS: Lower chest: Small right pleural effusion. Underlying atelectasis is seen. Bilateral pleural thicken ing and calcifications are noted. Liver: Unremarkable. No focal lesions are seen. Gallbladder and biliary tree: No calcified gallstones. Normal caliber wall. No intra- or extrahepatic biliary ductal dilation. Pancreas: Unremarkable, no focal lesions. Spleen: Calcifications are noted in the spleen compatible with prior granulomatous disease. Adrenals: Unremarkable. Kidneys and ureters: Perinephric stranding is noted bilaterally. Bladder: Holly catheter is seen. Reproductive organs: Brachytherapy seeds are seen in the prostate. Bowel: Diverticulosis is seen without diverticulitis. The appendix is normal. Lymph nodes Retroperitoneal: Unremarkable. Pelvic: Unremarkable. Mesenteric: Unremarkable. Peritoneum: Normal. Vessels: Atherosclerotic calcifications are seen. Abdominal wall: A fat-containing umbilical hernia is seen. Bones: Degenerative changes in the visualized spine. IMPRESSION: 1. No acute abnormalities and in particular no evidence of urothelial lesion. 2. 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 ACT 112: Negative or not required by law. Electronically signed by: Abhi Henderson M.D. 12/31/2022 2:05 PM
[2022-12-31] MEDS: ERTAPENEM SODIUM 1,000 MG in SYRINGE 0 ML IV SCH (20:20)
[2022-12-31] MEDS: DAPTOmycin 400 MG in SYRINGE 0 ML IV SCH (20:20)
--- NOTE | 2022-12-31 21:04 | Hospitalist Progress Note ---
Date of Service December 31, 2022 Assessment & Plan (1) Low grade fever: Plan: ongoing. temp last evening 38.1 another temp today of 37.7. etiology? initially felt 2nd to presumed UTI but low-grade fevers continue despite empiric cipro + amoxicillin (latter to cover enterococcus). Prior to cipro/amox was on IV antibiotics earlier in the stay. urine cx X 2 this admission negative recent COVID testing negative diarrhea --> checked cdiff --> negative cough --> checked cxr --> negative for infiltrates (and lung cuts on CT a/p today with asbestos lung disease only) blood cx's from admission negative repeat blood cx's 12/30 remain negative of note -- crp only mildly high at 4.2 procal negative CBC without features of bone marrow malignancy no obvious tick exposure has no evidence of [employer] infection doubt drug fever fever due to malignancy (bladder ca??) [facility] states "regional colitis" (Crohn'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 Bowels appear normal on CT today. Could low-grade fevers - given his diarrhea - be from his chronic colitis? plan - * perhaps he has prostatitis and cipro/amox are not covering a specific pathogen (e.g. - MDR pathogen, etc); thus - d/c PO abx, change to ertapenem/daptomycin IV * check anaplasmosis and lyme testing to be complete * follow blood cx's from 12/30/22 * in the event he has a non-infectious cause of fevers check dopplers of legs - r/o DVT (has been unable to be on chemical DVT proph due to ongoing hematuria) * consider CT chest if all other work-up is negative and he continues with fevers * consider ID consultation * repeat CRP in am * see above re: regional colitis (2) Hematuria: Plan: Present on admission. Had been steadily improving, then had clots over the weekend causing kate obstruction and needed hand irrigation. H/H - despite 3 runs of IV venofer - have not really increased c/w ongoing low- grade blood loss. Exact etiology of hematuria uncertain. Diff dx - bladder lesion (although none seen on CT a/p x 2) vs UTI vs prostatic in origin vs ureteral in origin. History of prostate cancer s/p brachytherapy with most recent PSA < 0.008. Repeat urine cx from 12/28 has resulted fully negative. Empiric IV rocephin was used initially for presumed UTI but culture from admission negative. Transitioned to cipro for gram neg, amox for enterococcus (has had such in the past). Still with low-grade fevers - see #1 above. Both Celebrex and aspirin remain on hold. Urology assistance appreciated. CT a/p from today rather unremarkable. Cystoscopy deferred by urology for now. (3) Acute renal failure (ARF): Plan: Present on admission. Obstructive due to gross hematuria with clots in bladder. s/p kate insertion at admission with improved creatinine and good UOP. Asa and celebrex on hold Indapamide and losartan had been held initially Peak Cr was 5.2 Now Cr normal for several days. Cr 1 today. Repeat BMP am. Appreciate urology assistance. (4) Acute blood loss anemia: Plan: 2nd to #2. H/H have plateaued -- Hb high 8's. Cont to trend H/H's. s/p venofer 300mg IV x 3 doses. CBC again in am. (5) Hypothyroidism: Plan: TSH 7.005 in July 2022. TSH 2.2 this admission. Continue levothyroxine 25 mcg PO daily. (6) Hx of prostatic malignancy: Plan: noted s/p brachytherapy for such most recent PSA undetectable (7) Acute urinary retention: Plan: Resolved with kate Consulted urology - See discussion above Will need kate at hospital d/c Pt and family counseled about the kate (8) HTN (hypertension): Plan: Had held indapamide and losartan due to JEN controlled on losartan 25mg daily and norvasc 2.5mg daily cont to hold indapamide due to recent kidney issues repeat BMP am (9) Regional colitis: Plan: Sulfasalazine placed on hold at time of admission no symptoms to suggest active colitis although he is having diarrhea which started AFTER admission bowels normal on CT a/p today c diff negative resume at discharge hold senna/miralax (10) DVT prophylaxis: Plan: chemical means contraindicated at this time due to hematuria he is ambulating SCDs knee highs ordered Plan updated pt's sons at bedside 12/28 grandson updated at bedside 12/30 updated pt's son Alexandre greenfield on 12/31 by phone care d/w [facility] today continue w/u for fevers cont PT/OT Admission and Anticipated Discharge Date Admission Date: December 24, 2022 Subjective patient looks very tired during the visit he admits to feeling fatigued he is aware of ongoing low-grade fevers he denies any new complaints he continues with diarrhea; c diff was negative denies abd pain denies suprapubic pain minimal cough denies any URI symptoms appetite remains relatively normal denies pain in either leg kate with ongoing hematuria but much better than previous lives in [place] but rarely goes outside into his yard no pets Review of Systems Review of Systems: gen - no rigors, appetite wnl HENT - no sore throat, ear pain, runny nose, congestion neuro - no headaches CV - no chest pain pulm - no sputum GI - no vomiting; some diarrhea musculo - no myalgias skin - no rash Physical Exam Physical Exam: gen - pleasant, NAD - looks very fatigued mouth - mildly erythematous palate but no thrush plaques neck - no cervical lymphadenopathy skin - mild generalized pallor - unchanged; no rash heart - RRR, s1 s2, 2/6 systolic murmur LSB lungs - CTA b/l although he had a tiny amount of scattered end-exp wheeze; no rales; no distress abd - soft, NT, BS+, no HSM, ND - urine in kate bag with mild-moderate hematuria - does look better today ext - no edema, pulses 2+ b/l; symmetric calves musculo - no joint synovitis any small or large joint upper/lower limbs psych - a/o x 3 Results & Data Results & Data Vital Signs (Past 12 Hours) Vital Signs Temp Pulse Pulse Pulse Resp BP BP 12/31/22 19:28 37.2 C 93 H 18 124/57 L 12/31/22 16:05 37.7 C H 88 16 152/70 H 12/31/22 15:30 93 H 12/31/22 12:03 37 C 82 16 142/80 H Pulse Ox O2 Del Method 12/31/22 19:28 94 Room Air 12/31/22 16:05 92 Room Air 11/13/23 15:30 12/31/22 12:03 93 Room Air Laboratory Results Laboratory Results - last 24 hr 12/30/22 12/31/22 06:13 06:32 WBC 8.27 RBC 2.87 L Hgb 8.8 L Hct 27.3 L MCV 95.1 MCH 30.7 MCHC 32.2 RDW Std Deviation 46.9 H RDW Coeff of Aditya 13.7 Plt Count 228 MPV 10.4 Immature Gran % (Auto) 0.7 Neut % (Auto) 69.7 Lymph % (Auto) 10.6 Young % (Auto) 14.4 Eos % (Auto) 4.4 Baso % (Auto) 0.2 Neut # (Auto) 5.76 Lymph # (Auto) 0.88 L Young # (Auto) 1.19 H Eos # (Auto) 0.36 Baso # (Auto) 0.02 Immature Gran # (Auto) 0.06 Sodium 140 Potassium 3.8 Chloride 107 Carbon Dioxide 28 Anion Gap 5 BUN 11 Creatinine 1.07 Est Cr Clr Drug Dosing 54.0 Est GFR ( Amer) 71.0 Est GFR (Non-Af Amer) 61.2 BUN/Creatinine Ratio 10.3 Glucose 171 H Estimat Average Glucose 134 Hemoglobin A1c 6.3 H Calcium 8.3 L Diagnostic Findings Abdomen/Pelvis CT 12/31/22 10:15 CT abdomen pelvis wo/w con CLINICAL HISTORY: gross hematuria TECHNIQUE: Helical axial images of the abdomen and pelvis were obtained. Automated dose lowering techniques and/or adjustment according to patient size were utilized for this exam. This exam was performed with and without intravenous contrast. CT DOSE: 3524.21 mGy.cm COMPARISON: Comparison is made to CT abdomen pelvis 12/24/2022 FINDINGS: Lower chest: Small right pleural effusion. Underlying atelectasis is seen. Bilateral pleural thickening and calcifications are noted. Liver: Unremarkable. No focal lesions are seen. Gallbladder and biliary tree: No calcified gallstones. Normal caliber wall. No intra- or extrahepatic biliary ductal dilation. Pancreas: Unremarkable, no focal lesions. Spleen: Calcifications are noted in the spleen compatible with prior granulomatous disease. Adrenals: Unremarkable. Kidneys and ureters: Perinephric stranding is noted bilaterally. Bladder: Kate catheter is seen. Reproductive organs: Brachytherapy seeds are seen in the prostate. Bowel: Diverticulosis is seen without diverticulitis. The appendix is normal. Lymph nodes Retroperitoneal: Unremarkable. Pelvic: Unremarkable. Mesenteric: Unremarkable. Peritoneum: Normal. Vessels: Atherosclerotic calcifications are seen. Abdominal wall: A fat-containing umbilical hernia is seen. Bones: Degenerative changes in the visualized spine. IMPRESSION: 1. No acute abnormalities and in particular no evidence of urothelial lesion. 2. Small right pleural effusion and left pleural thickening with bilateral calcifications, compatible with asbestos related pleural disease. ACT 112: Negative or not required by law. Electronically signed by: Abhi Henderson M.D. 12/31/2022 2:05 PM PG Care Time/CCT Total # of Minutes Spent Total Time Spent with Patient: Total time spent is greater than 50% in coordination of care (as documented) at patient's floor/unit and/or counseling patient: Coding Level of Care Code 32897 SUB INP/OBS CARE 3/50MIN Diagnoses Low grade fever R50.9 Hematuria R31.0 Hematuria type: gross Acute renal failure (ARF) N17.9 Acute renal failure type: unspecified Acute blood loss anemia D62 Hypothyroidism E03.9 Hx of prostatic malignancy Z85.46 Acute urinary retention R33.8 HTN (hypertension) I10 Regional colitis K50.10 DVT prophylaxis Z29.9 (2) Hematuria Hematuria type: gross Qualified Code(s): R31.0 - Gross hematuria (3) Acute renal failure (ARF) Acute renal failure type: unspecified Qualified Code(s): N17.9 - Acute kidney failure, unspecified
[2023-01-01] MEDS: LEVOTHYROXINE SODIUM 25 MCG TABLET PO SCH (06:16)
--- NOTE | 2023-01-01 07:06 | Ultrasound Report ---
BILATERAL LOWER EXTREMITY VENOUS DOPPLER HISTORY: Chronic pain of the right lower leg low-grade fevers, immobility; eval DVT COMPARISON STUDY: None. FINDINGS: Occlusive thrombus is noted within the duplicated right peroneal veins within the right low er leg. No left lower extremity DVT. Arterial calcifications. IMPRESSION: 1. Right lower extremity DVT. 2. No left lower extremity DVT. ACT 112: Negative or not required by law. Electronically signed by: Jesse Toscano M.D. 01/01/2023 7:05 AM
[2023-01-01 07:46] LABS: Basophils # (auto) 0.02 K/uL (0.00-0.20); Basophils % (auto) 0.2 %; Eosinophils # (auto) 0.27 K/uL (0.00-0.50); Eosinophils % (auto) 3.3 %; Hematocrit (blood only) 26.8 % (42.0-52.0); Hemoglobin 8.7 g/dl (14.0-18.0); Immature Granulocytes # (auto) 0.04 K/uL (0.01-0.20); Immature Granulocytes % (auto) 0.5 %; Lymphocytes # (auto) 0.86 K/uL (1.20-3.40); Lymphocytes % (auto) 10.4 %; Mean Corpuscular Hemoglobin 31.2 pg (25.0-34.0); Mean Corpuscular Hgb Conc 32.5 g/dL (32.0-36.0); Mean Corpuscular Volume 96.1 fL (80.0-100.0); Mean Platelet Volume 10.1 fL (9.4-12.4); Monocytes # (auto) 1.08 K/uL (0.11-0.59); Monocytes % (auto) 13.1 %; Neutrophils # (auto) 5.98 K/uL (1.40-6.50); Neutrophils % (auto) 72.5 %; Platelet Count 221 K/uL (130-400); RDW Coefficient of Variation 13.9 % (11.5-14.5); RDW Standard Deviation 48.2 fL (36.4-46.3); Red Blood Count 2.79 M/uL (4.70-6.10); White Blood Count 8.25 K/ul (4.8-10.8)
[2023-01-01] MEDS: amLODIPine BESYLATE 5 MG TAB PO SCH (07:53)
[2023-01-01] MEDS: CYANOCOBALAMIN (B-12) 500 MCG TABLET PO SCH (07:55)
[2023-01-01] MEDS: LOSARTAN POTASSIUM 25 MG TAB PO SCH (07:56)
[2023-01-01 08:01] LABS: BUN Creatinine Ratio 10.7 (10-20); C Reactive Protein 4.26 mg/dl (0-0.5); Calcium 8.5 mg/dl (8.6-10.3); Creatinine Clr Calc Pharmacy 47.9 ml/min; Est GFR (African American) 61.1 ml/min; Est GFR (Non-African American) 52.8 ml/min; Potassium 3.8 mmol/L (3.5-5.1)
[2023-01-01 08:11] LABS: Adenovirus PCR Not Detected (NotDetected); Bordetella parapertussis PCR Not Detected (NotDetected); Bordetella pertussis PCR Not Detected (NotDetected); Chlamydia pneumoniae PCR Not Detected (NotDetected); Coronavirus 229E PCR Not Detected (NotDetected); Coronavirus CoV-2 (COVID19)PCR Not Detected (NotDetected); Coronavirus HKU1 PCR Not Detected (NotDetected); Coronavirus NL63 PCR Not Detected (NotDetected); Coronavirus OC43PCR Not Detected (NotDetected); Human Metapneumovirus PCR Not Detected (NotDetected); Influenza A PCR Not Detected (NotDetected); Influenza B PCR Not Detected (NotDetected); Mycoplasma pneumoniae PCR Not Detected (NotDetected); Parainfluenza Virus 1 PCR Not Detected (NotDetected); Parainfluenza Virus 2 PCR Not Detected (NotDetected); Parainfluenza Virus 3 PCR Not Detected (NotDetected); Parainfluenza Virus 4 PCR Not Detected (NotDetected); Respiratory Syncytial VirusPCR Not Detected (NotDetected); Rhinovirus/Enterovirus PCR Not Detected (NotDetected)
[2023-01-01 09:11] LABS: Lyme Ab IgG w/WB Rflx Negative (Negative); Lyme Ab IgM w/WB Rflx Negative (Negative)
--- NOTE | 2023-01-01 10:23 | Urology Progress Note ---
Date of Service January 01, 2023 Assessment & Plan (1) Hematuria: (2) Acute urinary retention: (3) Acute UTI (urinary tract infection): Plan Follow-up of gross hematuria. Patient subjectively feeling well. Afebrile, hemodynamically stable. Labs WBC 8.25, hemoglobin 8.7, Creatinine 1.21. Urine and blood culture no growth. Changed to ertapenem/daptomycin IV yesterday due to intermittent fever and concern of possible underlying UTI/prostatitis. CT abd pelvis 12/31 to reeval given hematuria and fever - shows perinephric stranding bilaterally, otherwise unremarkable from a standpoint. Also had BLE doppler last night to r/o DVT given fevers per primary team. Was positive for RLE DVT. Continue management per primary team. No acute intervention warranted. Holly patent and draining appropriately - urine is clear yellow. Continue to monitor. OK to manually irrigate as needed. Recommend maintain Holly catheter upon discharge. Patient can be discharged with Holly catheter when medically stable. We will arrange outpatient f/u with our service for cystoscopy. will sign off, please contact our service with any additional questions or concerns. Admission and Anticipated Discharge Date Admission Date: December 24, 2022 Subjective Patient examined at bedside this AM. Awake, resting in bed on arrival. No acute distress. Holly currently intact, draining clear yellow urine. Patient denies any issues with the catheter. Has not needed manual irrigation. Denies fevers, chills, nausea, vomiting. He denies any pain or discomfort at present. Review of Systems Constitutional: as per Subjective / HPI Gastrointestinal: as per Subjective / HPI Genitourinary: + as per Subjective / HPI Physical Exam Constitutional: no acute distress Respiratory: no respiratory distress and no labored breathing Neurologic: moves all extremities and awake Psychiatric: A+Ox3, euthymic affect Genitourinary: Holly intact, urine is clear yellow Results & Data Vital Signs (Past 12 Hours) Vital Signs Temp Pulse Pulse Resp BP BP Pulse Ox 01/01/23 07:36 36.9 C 86 16 174/74 H 93 01/01/23 03:37 37.4 C 87 18 131/60 94 12/31/22 22:55 37.5 C 90 16 137/59 L 94 12/31/22 22:00 89 O2 Del Method 01/01/23 07:36 Room Air 01/01/23 03:37 Room Air 12/31/22 22:55 Room Air 12/31/22 22:00 PG Care Time/CCT Total # of Minutes Spent Total Time Spent with Patient: Total time spent is greater than 50% in coordination of care (as documented) at patient's floor/unit and/or counseling patient: Coding Level of Care Code 96112 SUB INP/OBS CARE 2/35MIN Diagnoses Hematuria R31.0 Hematuria type: gross Acute urinary retention R33.8 Acute UTI (urinary tract infection) N39.0 (1) Hematuria Hematuria type: gross Qualified Code(s): R31.0 - Gross hematuria
--- NOTE | 2023-01-01 17:44 | Hospitalist Progress Note ---
Date of Service January 01, 2023 Assessment & Plan (1) Low grade fever: Plan: 01/01 - temp curve seems to be trending down no fever/36 hours, feels well. Extensive work-up detailed below negative to date. potentially pyelonephritis based on stranding your kidneys on CT or focus of prostatitis explains the picture sometimes inflammation can take quite a while to resolve even on appropriate antibiotics, or could have been resistant infection. CRP static at 4. -continue same antibiotics -blood cx 12/24 neg, 12/30 ngtd. Urine cultures have been negative -asymptomatic R calf DVT does not seem likely to cause fever plan - * perhaps he has prostatitis and cipro/amox are not covering a specific pathogen (e.g. - MDR pathogen, etc); thus - d/c PO abx, change to ertapenem/daptomycin IV * anaplasmosis and lyme testing neg * resp viral panel and COVID neg * follow blood cx's from 12/30/22 (2) Hematuria: Plan: Present on admission. Had been steadily improving, then had clots over the weekend causing kate obstruction and needed hand irrigation. H/H - despite 3 runs of IV venofer - have not really increased c/w ongoing low- grade blood loss. Exact etiology of hematuria uncertain. Diff dx - bladder lesion (although none seen on CT a/p x 2) vs UTI vs prostatic in origin vs ureteral in origin. History of prostate cancer s/p brachytherapy with most recent PSA < 0.008. Repeat urine cx from 12/28 has resulted fully negative. Empiric IV rocephin was used initially for presumed UTI but culture from admission negative. Transitioned to cipro for gram neg, amox for enterococcus (has had such in the past). Still with low-grade fevers - see #1 above. Both Celebrex and aspirin remain on hold. Urology assistance appreciated. CT a/p from today rather unremarkable. Cystoscopy deferred to outpatient - follow up with urology 01/01 hematuria appears to have resolved. will monitor 1-2 days here with initiation of anticoagulation (3) Deep vein thrombosis (DVT) of calf muscle vein of right lower extremity: Plan: asymptomatic and detected during fever workup, peroneal vein. provoked by hospitalization -discussed risks:benefits of anticoagulation with patient and his sons especially risk of provoking hematuria. discussed alternative strategy of monitor sx and serial duplex -discussed with urology -trial anticoagulation with apixaban, monitor in hospital during initiation -ok to hold for 24-48h prior to cystoscopy (holding for 48h reverses it completely), low risk for PE since below the knee -anticipate 3 months anticoagulation (4) Acute renal failure (ARF): Plan: Present on admission. Obstructive due to gross hematuria with clots in bladder. s/p kate insertion at admission with improved creatinine and good UOP. Asa and celebrex on hold Indapamide and losartan had been held initially Peak Cr was 5.2 Now Cr normal for several days. Cr 1.2 today. (5) Acute blood loss anemia: Plan: 2nd to #2. s/p venofer 300mg IV x 3 doses. Hct stable at 26 (6) Hypothyroidism: Plan: TSH 7.005 in July 2022. TSH 2.2 this admission. Continue levothyroxine 25 mcg PO daily. (7) Hx of prostatic malignancy: Plan: noted s/p brachytherapy for such most recent PSA undetectable (8) Acute urinary retention: Plan: Resolved with kate Consulted urology - See discussion above Will need kate at hospital d/c Pt and family counseled about the kate (9) HTN (hypertension): Plan: Had held indapamide and losartan due to JEN controlled on losartan 25mg daily and norvasc 2.5mg daily cont to hold indapamide due to recent kidney issues (10) Regional colitis: Plan: Sulfasalazine placed on hold at time of admission no symptoms to suggest active colitis although he is having diarrhea which started AFTER admission bowels normal on CT a/p c diff negative resume at discharge hold senna/miralax Plan updated pt's sons at bedside 12/28, 01/01 grandson updated at bedside 12/30, 01/01 updated pt's son Alexandre extensively on 12/31 by phone care d/w [facility] 01/01 cont PT/OT Admission and Anticipated Discharge Date Admission Date: December 24, 2022 Subjective feels good and wants to go home. No gross hematuria 3 days. Temp improved. No pain or swelling R calf. Never had back or pelvic pain (excepting during bladder irrigation) Physical Exam 2 Physical Exam: PHYSICAL EXAMINATION Last 24h vital signs reviewed, see documentation in flowsheet General: comfortable appearing, no distress HEENT: Normocephalic, atraumatic, pupils round and equal, sclerae anicteric, no conjunctival injection, moist mucus membranes Lungs: Normal respiratory effort. Clear to auscultation bilaterally. No RRW Heart: Regular rate and rhythm, no murmurs. No JVD Abdomen: Soft, nontender, nondistended. Bowel sounds present. : Kate catheter draining clear yellow urine no hematuria Extremities: Warm, dry, well-perfused. No extremity edema. right calf is soft with no tenderness no swelling no palpable cord Neuro: Alert and oriented x 4, face symmetric, moves 4 extremities well Psych: Normal affect and behavior Results & Data Results & Data Vital Signs (Past 12 Hours) Vital Signs Temp Pulse Pulse Resp BP BP Pulse Ox 01/01/23 15:43 89 01/01/23 15:13 37.2 C 90 16 131/57 L 94 01/01/23 12:06 37.1 C 88 16 124/64 93 01/01/23 07:36 36.9 C 86 16 174/74 H 93 O2 Del Method 01/01/23 15:43 01/01/23 15:13 Room Air 01/01/23 12:06 Room Air 01/01/23 07:36 Room Air Laboratory Results 01/01/23 07:20 01/01/23 07:20 PG Care Time/CCT Total # of Minutes Spent Total Time Spent with Patient: Total time spent is greater than 50% in coordination of care (as documented) at patient's floor/unit and/or counseling patient: Coding Level of Care Code 49294 SUB INP/OBS CARE 3/50MIN Diagnoses Low grade fever R50.9 Hematuria R31.0 Hematuria type: gross Deep vein thrombosis (DVT) of calf muscle vein of right lower extremity I82.461 Acute renal failure (ARF) N17.9 Acute renal failure type: unspecified Acute blood loss anemia D62 Hypothyroidism E03.9 Hx of prostatic malignancy Z85.46 Acute urinary retention R33.8 HTN (hypertension) I10 Regional colitis K50.10 (2) Hematuria Hematuria type: gross Qualified Code(s): R31.0 - Gross hematuria (4) Acute renal failure (ARF) Acute renal failure type: unspecified Qualified Code(s): N17.9 - Acute kidney failure, unspecified
[2023-01-01] MEDS: DAPTOmycin 400 MG in SYRINGE 0 ML IV SCH (18:20)
[2023-01-01] MEDS: ERTAPENEM SODIUM 1,000 MG in SYRINGE 0 ML IV SCH (18:20)
[2023-01-01] MEDS ORDERED: APIXABAN 5 MG TABLET PO SCH (21:00)
[2023-01-02] MEDS: LEVOTHYROXINE SODIUM 25 MCG TABLET PO SCH (05:12)
--- NOTE | 2023-01-02 07:18 | Hospitalist Progress Note ---
Date of Service January 02, 2023 Assessment & Plan (1) Low grade fever: Plan: 01/02 - temp curve overall trended down but persists with infrequent low grade temp on daptomycin/ertapenem, feels well. Extensive work-up detailed below negative to date. potentially pyelonephritis based on stranding of kidneys/ureters on CT or focus of prostatitis. sometimes inflammation can take quite a while to resolve even on appropriate antibiotics, or may be noninfectious. CRP static at 4. -continue same antibiotics through tomorrow. reviewed chart and he has been on broad spectrum ABX with good urinary coverage since 12/20. All cultures have been negative and he is asymptomatic. At this time plan to finish antibiotics after tomorrow which completes 14 days of empiric coverage. Observe off antibiotics after that and follow up with urology as planned. -blood cx 12/24 neg, 12/30 ngtd. Urine cultures have been negative -asymptomatic R calf DVT does not seem likely to cause fever cipro started outpatient 12/20 ceftriaxone started on admission 12/24 dapto and ertapenem 12/31 * anaplasmosis and lyme testing neg * resp viral panel and COVID neg * follow blood cx's from 12/30/22 - ngtd (2) Hematuria: Plan: Present on admission. Had been steadily improving, then had clots over the weekend causing kate obstruction and needed hand irrigation. H/H - despite 3 runs of IV venofer - have not really increased c/w ongoing low- grade blood loss. Exact etiology of hematuria uncertain. Diff dx - bladder lesion (although none seen on CT a/p x 2) vs UTI vs prostatic in origin vs ureteral in origin. History of prostate cancer s/p brachytherapy with most recent PSA < 0.008. Repeat urine cx from 12/28 has resulted fully negative. Various antibiotics given as above Both Celebrex and aspirin remain on hold. CT a/p rather unremarkable. Cystoscopy deferred to outpatient - follow up with urology 01/01 gross hematuria had resolved however recurred quickly after one dose of apixaban, thus stopped -no clots currently, continue kate and monitor for clots/obstruction (3) Deep vein thrombosis (DVT) of calf muscle vein of right lower extremity: Plan: asymptomatic and detected during fever workup, peroneal vein. provoked by hospitalization -discussed risks:benefits of anticoagulation with patient and his sons especially risk of provoking hematuria. discussed alternative strategy of monitor sx and serial duplex -discussed with urology -trial anticoagulation with apixaban 01/01 pm was a failure - quickly developed recurrent gross hematuria -will follow calf DVT with serial duplex at least until after cystoscopy, repeat trial of anticoagulation in future is an option depending on results of cystoscopy and clinical course. standard would be 3 months for provoked calf DVT (4) Acute renal failure (ARF): Plan: Present on admission. Obstructive due to gross hematuria with clots in bladder. s/p kate insertion at admission with improved creatinine and good UOP. Asa and celebrex on hold Indapamide and losartan had been held initially Peak Cr was 5.2 Now Cr normal for several days, last 1.2 AM BMP. (5) Acute blood loss anemia: Plan: 2nd to #2. s/p venofer 300mg IV x 3 doses. Hct stable at 26 AM CBC (6) Hypothyroidism: Plan: TSH 7.005 in July 2022. TSH 2.2 this admission. Continue levothyroxine 25 mcg PO daily. (7) Hx of prostatic malignancy: Plan: noted s/p brachytherapy for such most recent PSA undetectable (8) Acute urinary retention: Plan: Resolved with kate Consulted urology - See discussion above Will need kate at hospital d/c Pt and family counseled about the kate (9) HTN (hypertension): Plan: Had held indapamide and losartan due to JEN adequately controlled on losartan 25mg daily and norvasc 2.5mg daily cont to hold indapamide due to recent kidney issues, can resume at discharge (10) Regional colitis: Plan: Sulfasalazine placed on hold at time of admission no symptoms to suggest active colitis although he is having diarrhea which s tarted AFTER admission bowels normal on CT a/p c diff negative resume at discharge hold senna/miralax Plan updated pt's sons at bedside 12/28, 01/01 grandson updated at bedside 12/30, 01/01 updated pt's son Alexandre extensively on 12/31 by phone care d/w [facility] 01/01 cont PT/OT Admission and Anticipated Discharge Date Admission Date: December 24, 2022 Subjective low grade temp of 99.8/37.7 last night. hematuria recurred after one dose of apixaban. Remains asymptomatic and feeling well. Urine is red cool-aid colored without clots. Physical Exam Physical Exam: PHYSICAL EXAMINATION Last 24h vital signs reviewed, see documentation in flowsheet General: comfortable appearing, no distress HEENT: Normocephalic, atraumatic, pupils round and equal, sclerae anicteric, no conjunctival injection, moist mucus membranes Lungs: Normal respiratory effort. Clear to auscultation bilaterally. No RRW Heart: Regular rate and rhythm, no murmurs. No JVD Abdomen: Soft, nontender, nondistended. Bowel sounds present. : Kate catheter draining clear red urine without clots Extremities: Warm, dry, well-perfused. No extremity edema. right calf is soft with no tenderness no swelling Neuro: Alert and oriented x 4, face symmetric, moves 4 extremities well Psych: Normal affect and behavior Results & Data Results & Data Vital Signs (Past 12 Hours) Vital Signs Temp Pulse Pulse Resp BP BP Pulse Ox 01/02/23 03:09 37.3 C 82 18 144/64 H 95 01/01/23 23:07 36.6 C 81 18 153/68 H 96 01/01/23 22:01 85 01/01/23 19:55 37.7 C H 90 18 145/63 H 95 O2 Del Method 01/02/23 03:09 Room Air 01/01/23 23:07 Room Air 01/01/23 22:01 01/01/23 19:55 Room Air PG Care Time/CCT Total # of Minutes Spent Total Time Spent with Patient: Total time spent is greater than 50% in coordination of care (as documented) at patient's floor/unit and/or counseling patient: Coding Level of Care Code 67748 SUB INP/OBS CARE 2/35MIN Diagnoses Low grade fever R50.9 Hematuria R31.0 Hematuria type: gross Deep vein thrombosis (DVT) of calf muscle vein of right lower extremity I82.461 Acute renal failure (ARF) N17.9 Acute renal failure type: unspecified Acute blood loss anemia D62 Hypothyroidism E03.9 Hx of prostatic malignancy Z85.46 Acute urinary retention R33.8 HTN (hypertension) I10 Regional colitis K50.10 (2) Hematuria Hematuria type: gross Qualified Code(s): R31.0 - Gross hematuria (4) Acute renal failure (ARF) Acute renal failure type: unspecified Qualified Code(s): N17.9 - Acute kidney failure, unspecified
[2023-01-02] MEDS: LOSARTAN POTASSIUM 25 MG TAB PO SCH (08:41)
[2023-01-02] MEDS: amLODIPine BESYLATE 5 MG TAB PO SCH (08:41)
[2023-01-02] MEDS: CYANOCOBALAMIN (B-12) 500 MCG TABLET PO SCH (08:41)
--- NOTE | 2023-01-02 12:00 | Urology Progress Note ---
Date of Service January 02, 2023 Assessment & Plan (1) Hematuria: Plan Follow-up of gross hematuria. Patient subjectively feeling well. Afebrile at present, had low grade temp 37.7C last night. Hemodynamically stable. Labs from 01/01- WBC 8.25, hemoglobin 8.7, Creatinine 1.21. Urine and blood culture no growth. Changed to ertapenem/daptomycin due to intermittent fever and concern of possible underlying UTI/prostatitis. CT abd pelvis 12/31 to reeval given hematuria and fever - shows perinephric stranding bilaterally, otherwise unremarkable from a standpoint. Started on apixaban yesterday for LE DVT - Hematuria returned after one dose of apixaban. Holly patent and draining appropriately - urine is pink. Continue to monitor. OK to manually irrigate as needed. OK to continue anticoagulation from standpoint as felt necessary per primary team. Urology will manage hematuria as needed. We will arrange outpatient f/u with our service for cystoscopy. will follow. Admission and Anticipated Discharge Date Admission Date: December 24, 2022 Subjective Patient examined at bedside this AM. Awake, resting in bed on arrival. No acute distress. Pt was started on apixaban yesterday for RLE DVT. Hematuria returned after one dose of apixaban. Holly currently intact, draining pink urine. No clots. Patient denies any issues with the catheter. Has not needed manual irrigation. Low grade temp of 37.7 last night. Denies abdominal and suprapubic pain. Review of Systems Constitutional: as per Subjective / HPI Gastrointestinal: as per Subjective / HPI Genitourinary: + as per Subjective / HPI Physical Exam Constitutional: no acute distress Respiratory: no respiratory distress and no labored breathing Musculoskeletal: Head/Neck/Chest: normocephalic Neurologic: moves all extremities and awake Psychiatric: A+Ox3, euthymic affect Genitourinary: Holly intact, urine is pink Results & Data Vital Signs (Past 12 Hours) Vital Signs Temp Pulse Pulse Resp BP Pulse Ox O2 Del Method 01/02/23 07:24 37.2 C 83 18 153/71 H 93 Room Air 01/02/23 05:59 78 01/02/23 03:09 37.3 C 82 18 144/64 H 95 Room Air PG Care Time/CCT Total # of Minutes Spent Total Time Spent with Patient: Total time spent is greater than 50% in coordination of care (as documented) at patient's floor/unit and/or counseling patient: Coding Level of Care Code 30390 SUB INP/OBS CARE 2MIN Diagnoses Hematuria R31.0 Hematuria type: gross (1) Hematuria Hematuria type: gross Qualified Code(s): R31.0 - Gross hematuria
[2023-01-02] MEDS: ERTAPENEM SODIUM 1,000 MG in SYRINGE 0 ML IV SCH (18:14)
[2023-01-02] MEDS: DAPTOmycin 400 MG in SYRINGE 0 ML IV SCH (18:18)
[2023-01-03] MEDS: LEVOTHYROXINE SODIUM 25 MCG TABLET PO SCH (05:58)
[2023-01-03] MEDS: amLODIPine BESYLATE 5 MG TAB PO SCH (09:46)
[2023-01-03] MEDS: LOSARTAN POTASSIUM 25 MG TAB PO SCH (09:47)
[2023-01-03] MEDS: CYANOCOBALAMIN (B-12) 500 MCG TABLET PO SCH (09:47)
--- NOTE | 2023-01-03 15:41 | Hospitalist Progress Note ---
Date of Service January 03, 2023 Assessment & Plan (1) Low grade fever: Plan: 01/03 - temp curve overall trended down but persists with infrequent low grade temp on daptomycin/ertapenem, feels well. Afebrile last 24h Extensive work-up detailed below negative to date. Potentially pyelonephritis based on stranding of kidneys/ureters on CT or focus of prostatitis. sometimes inflammation can take quite a while to resolve even on appropriate antibiotics, or may be noninfectious - inflammation, tumor fever and drug fever are possibilities. CRP static at 4. -will stop antibiotics after today which completes 14 days of antibiotics with good urinary coverage and all cultures have been negative. Observe off antibiotics after that and follow up with urology as planned. -blood cx 12/24 neg, 12/30 ngtd. Urine cultures have been negative -asymptomatic R calf DVT does not seem likely to cause fever though possible cipro started outpatient 12/20 ceftriaxone started on admission 12/24 dapto and ertapenem 12/31 * anaplasmosis and lyme testing neg * resp viral panel and COVID neg * follow blood cx's from 12/30/22 - ngtd (2) Hematuria: Plan: Present on admission. Had been steadily improving, then had clots over the weekend causing kate obstruction and needed hand irrigation. H/H - despite 3 runs of IV venofer - have not really increased c/w ongoing low- grade blood loss. Exact etiology of hematuria uncertain. Diff dx - bladder inflammation or lesion (although none seen on CT a/p x 2) vs UTI vs prostatic in origin vs ureteral in origin. History of prostate cancer s/p brachytherapy with most recent PSA < 0.008. Repeat urine cx from 12/28 has resulted fully negative. Various antibiotics given as above Both Celebrex and aspirin remain on hold. CT a/p rather unremarkable. Cystoscopy deferred to outpatient - follow up with urology 01/01 gross hematuria had resolved however recurred quickly after one dose of apixaban, thus stopped -improving though passed one large clot today did not require irrigation -home in AM if hematuria continues improving (3) Deep vein thrombosis (DVT) of calf muscle vein of right lower extremity: Plan: asymptomatic and detected during fever workup, peroneal vein. provoked by hospitalization -discussed risks:benefits of anticoagulation with patient and his sons especially risk of provoking hematuria. discussed alternative strategy of monitor sx and serial duplex -discussed with urology -trial anticoagulation with apixaban 11 pm was a failure - quickly developed recurrent gross hematuria -will follow calf DVT with serial duplex at least until after cystoscopy, repeat trial of anticoagulation in future is an option depending on results of cystoscopy and clinical course. standard would be 3 months for provoked calf DVT (4) Acute renal failure (ARF): Plan: Present on admission. Obstructive due to gross hematuria with clots in bladder. s/p kate insertion at admission with improved creatinine and good UOP. Asa and celebrex on hold Indapamide and losartan had been held initially Peak Cr was 5.2 Now Cr normal for several days, last 1.2 AM BMP. (5) Acute blood loss anemia: Plan: 2nd to #2. s/p venofer 300mg IV x 3 doses. Hct stable at 26 AM CBC (6) Hypothyroidism: Plan: TSH 7.005 in July 2022. TSH 2.2 this admission. Continue levothyroxine 25 mcg PO daily. (7) Hx of prostatic malignancy: Plan: noted s/p brachytherapy for such most recent PSA undetectable (8) Acute urinary retention: Plan: Resolved with kate Consulted urology - See discussion above Will need kate at hospital d/c - spoke with RN who will work on teaching and gathering supplies Pt and family counseled about the kate (9) HTN (hypertension): Plan: Had held indapamide and losartan due to JEN adequately controlled on losartan 25mg daily and norvasc 2.5mg daily cont to hold indapamide due to recent kidney issues, can resume at discharge (10) Regional colitis: Plan: Sulfasalazine placed on hold at time of admission no symptoms to suggest active colitis although he is having diarrhea which started AFTER admission bowels normal on CT a/p c diff negative resume at discharge hold senna/miralax Plan updated pt's sons at bedside 12/28, 01/01 grandson updated at bedside 12/30, 01/01 updated pt's son Alexandre extensively on 12/31 by phone care d/w [facility] 01/01 cont PT/OT Admission and Anticipated Discharge Date Admission Date: December 24, 2022 Subjective doing okay and still feels well. Urine less red, now light pink but RN reports passed a large clot into the kate bag this am. No CP abd pain fever or calf/leg pain or swelling. Physical Exam 2 Physical Exam: PHYSICAL EXAMINATION Last 24h vital signs reviewed, see documentation in flowsheet Exam unchanged 01/03 except that urine is less red General: comfortable appearing, no distress HEENT: Normocephalic, atraumatic, pupils round and equal, sclerae anicteric, no conjunctival injection, moist mucus membranes Lungs: Normal respiratory effort. Clear to auscultation bilaterally. No RRW Heart: Regular rate and rhythm, no murmurs. No JVD Abdomen: Soft, nontender, nondistended. Bowel sounds present. : Kate catheter draining clear pink urine without clots Extremities: Warm, dry, well-perfused. No extremity edema. right calf is soft with no tenderness no swelling Neuro: Alert and oriented x 4, face symmetric, moves 4 extremities well Psych: Normal affect and behavior Results & Data Results & Data Vital Signs (Past 12 Hours) Vital Signs Temp Pulse Pulse Resp BP Pulse Ox O2 Del Method 01/03/23 15:27 36.8 C 79 18 130/66 95 Room Air 01/03/23 12:50 36.8 C 81 18 144/67 H 94 Room Air 01/03/23 11:31 76 01/03/23 07:49 36.6 C 77 18 130/68 95 Room Air Laboratory Results 01/01/23 07:20 01/01/23 07:20 PG Care Time/CCT Total # of Minutes Spent Total Time Spent with Patient: Total time spent is greater than 50% in coordination of care (as documented) at patient's floor/unit and/or counseling patient: Coding Level of Care Code 51016 SUB INP/OBS CARE 2/35MIN Diagnoses Low grade fever R50.9 Hematuria R31.0 Hematuria type: gross Deep vein thrombosis (DVT) of calf muscle vein of right lower extremity I82.461 Acute renal failure (ARF) N17.9 Acute renal failure type: unspecified Acute blood loss anemia D62 Hypothyroidism E03.9 Hx of prostatic malignancy Z85.46 Acute urinary retention R33.8 HTN (hypertension) I10 Regional colitis K50.10 (2) Hematuria Hematuria type: gross Qualified Code(s): R31.0 - Gross hematuria (4) Acute renal failure (ARF) Acute renal failure type: unspecified Qualified Code(s): N17.9 - Acute kidney failure, unspecified
--- NOTE | 2023-01-03 18:01 | Urology Progress Note ---
Date of Service January 03, 2023 Assessment & Plan (1) Hematuria: Plan Follow-up of gross hematuria. Patient subjectively feeling well. Afebrile and hemodynamically stable. CT abd pelvis 12/31 to reeval given hematuria and fever - shows perinephric stranding bilaterally, otherwise unremarkable from a standpoint. Started on apixaban 01/01 for LE DVT - Hematuria returned after one dose of apixaban. Anticoagulation on hold. Holly patent and draining appropriately - urine is pink tinged. Continue to monitor. OK to manually irrigate as needed. OK to continue anticoagulation from standpoint as felt necessary per primary team. Urology will manage hematuria as needed. We will arrange outpatient f/u with our service for cystoscopy and voiding trial. will follow peripherally. Please contact us with any further questions/concerns. Admission and Anticipated Discharge Date Admission Date: December 24, 2022 Subjective Patient examined at bedside this AM. Awake, resting in bed on arrival. No acute distress. Holly currently intact, draining pink tinged urine. No clots. Patient denies any issues with the catheter. Has not needed manual irrigation. No fevers. Denies abdominal and suprapubic pain. Review of Systems Constitutional: as per Subjective / HPI Gastrointestinal: as per Subjective / HPI Genitourinary: + as per Subjective / HPI Physical Exam Constitutional: no acute distress Respiratory: no respiratory distress and no labored breathing Musculoskeletal: Head/Neck/Chest: normocephalic Neurologic: moves all extremities and awake Psychiatric: A+Ox3, euthymic affect Genitourinary: Holly intact Results & Data Vital Signs (Past 12 Hours) Vital Signs Temp Pulse Pulse Resp BP Pulse Ox O2 Del Method 01/03/23 12:50 36.8 C 81 18 144/67 H 94 Room Air 01/03/23 11:31 76 01/03/23 07:49 36.6 C 77 18 130/68 95 Room Air 01/03/23 03:17 36.8 C 81 18 164/72 H 95 Room Air PG Care Time/CCT Total # of Minutes Spent Total Time Spent with Patient: Total time spent is greater than 50% in coordination of care (as documented) at patient's floor/unit and/or counseling patient: Coding Level of Care Code 43200 SUB INP/OBS CARE 2/35MIN Diagnoses Hematuria R31.0 Hematuria type: gross (1) Hematuria Hematuria type: gross Qualified Code(s): R31.0 - Gross hematuria
[2023-01-04] MEDS: LEVOTHYROXINE SODIUM 25 MCG TABLET PO SCH (06:10)
[2023-01-04 06:45] LABS: Hematocrit (blood only) 29.6 % (42.0-52.0); Hemoglobin 9.7 g/dl (14.0-18.0); Mean Corpuscular Hemoglobin 31.1 pg (25.0-34.0); Mean Corpuscular Hgb Conc 32.8 g/dL (32.0-36.0); Mean Corpuscular Volume 94.9 fL (80.0-100.0); Platelet Count 286 K/uL (130-400); RDW Coefficient of Variation 13.9 % (11.5-14.5); RDW Standard Deviation 47.8 fL (36.4-46.3); Red Blood Count 3.12 M/uL (4.70-6.10); White Blood Count 8.25 K/ul (4.8-10.8)
[2023-01-04 07:01] LABS: C Reactive Protein 1.41 mg/dl (0-0.5); Calcium 8.8 mg/dl (8.6-10.3); Creatinine Clr Calc Pharmacy 47.4 ml/min; Est GFR (Non-African American) 51.7 ml/min; Potassium 3.9 mmol/L (3.5-5.1)
[2023-01-04] MEDS: amLODIPine BESYLATE 5 MG TAB PO SCH (09:46)
[2023-01-04] MEDS: CYANOCOBALAMIN (B-12) 500 MCG TABLET PO SCH (09:46)
[2023-01-04] MEDS: LOSARTAN POTASSIUM 25 MG TAB PO SCH (09:47)
--- NOTE | 2023-01-04 11:44 | Ultrasound Report ---
US venous doppler LE RT CLINICAL HISTORY: follow up R calf DVT TECHNIQUE: Right lower extremity real-time compression venous ultrasound with Color Doppler imaging. Utilizing real-time ultrasonic imaging multiple real time high-resolution ultrasonic images with comp ression and noncompression maneuvers of the deep venous system in addition to color doppler imaging w ere performed from the common femoral vein through the proximal calf veins. COMPARISON: Comparison is made to previous Doppler ultrasound 12/31/2022 FINDINGS/IMPRESSION: Currently there is normal compressibility of the deep venous system from the common femoral vein thro ugh the proximal calf veins, previously noted right peroneal deep venous thrombus appears resolved. No superficial venous thrombosis is identified. ACT 112: Negative or not required by law. Electronically signed by: Abhi Henderson M.D. 01/04/2023 11:43 AM
--- NOTE | 2023-01-04 15:55 | Urology Progress Note ---
Date of Service January 04, 2023 Assessment & Plan (1) Hematuria: Plan Patient subjectively feeling well. Afebrile and hemodynamically stable. Labs reviewedWBC 8.25, hemoglobin 9.7, creatinine 1.23. CT abd pelvis 12/31 to reeval given hematuria - shows perinephric stranding bilaterally, otherwise unremarkable from a standpoint. Started on apixaban 01/01 for LE DVT - Hematuria returned after one dose of apixaban. Anticoagulation was placed on hold per primary team. Holly catheter draining appropriately, urine is pink-tinged. Continue to monitor. Hemoglobin has remained stable and patient has not required transfusion. There is a balance between appropriate anticoagulation and increased bleeding and the risk of DVT and hematuria. The risk of clot is considerably more detrimental and therefore would defer to the expert opinion of the hospitalist and vascular team regarding anticoagulation. Hematuria can be managed with drainage, irrigation, or clot evacuation if needed. Urology will manage hematuria as needed. We will arrange outpatient f/u with our service for cystoscopy and voiding trial. will follow peripherally. Please contact us with any further questions/concerns. Admission and Anticipated Discharge Date Admission Date: December 24, 2022 Subjective Patient examined at bedside this AM. Awake, resting in bed on arrival. No acute distress. Holly currently intact, draining pink tinged urine. No clots. Patient denies any issues with the catheter. Has not needed manual irrigation. No fevers. Denies abdominal and suprapubic pain. Review of Systems Constitutional: as per Subjective / HPI Gastrointestinal: as per Subjective / HPI Genitourinary: + as per Subjective / HPI Physical Exam Constitutional: no acute distress Respiratory: no respiratory distress and no labored breathing Musculoskeletal: Head/Neck/Chest: normocephalic Neurologic: moves all extremities and awake Psychiatric: A+Ox3, euthymic affect Genitourinary: Holly intact Results & Data Vital Signs (Past 12 Hours) Vital Signs Temp Pulse Pulse Resp BP BP Pulse Ox 01/04/23 13:13 36.9 C 84 16 161/69 H 132/65 92 01/04/23 12:15 36.9 C 84 16 132/65 92 01/04/23 11:39 81 01/04/23 07:50 37.1 C 73 16 152/69 H 94 O2 Del Method 01/04/23 13:13 01/04/23 12:15 Room Air 01/04/23 11:39 01/04/23 07:50 Room Air PG Care Time/CCT Total # of Minutes Spent Total Time Spent with Patient: Total time spent is greater than 50% in coordination of care (as documented) at patient's floor/unit and/or counseling patient: Coding Level of Care Code 71572 SUB INP/OBS CARE 2/35MIN Diagnoses Hematuria R31.0 Hematuria type: gross (1) Hematuria Hematuria type: gross Qualified Code(s): R31.0 - Gross hematuria
--- NOTE | 2023-01-04 18:35 | Discharge Summary ---
Date of Service January 04, 2023 Admission HPI Per Admitting Provider Alexandre Soto is an 87 year old male who presents to the ER with gross hematuria and suprapubic pain. Reports intermittent hematuria initially starting 8 days ago. UA taken and he was started on ciprofloxacin on 12/20 (4 days ago) by his PCP. He was advised to call again today if symptoms continuing however because the symptoms were getting worse with increased suprapubic pain, nausea and vomiting he decided to come to the ER. He currently takes aspirin and Celebrex. He has a significant history of prostate cancer status post brachytherapy. Principal Diagnosis JEN due to bladder outlet obstruction due to gross hematuria, possible complicated urinary tract infection either pyelonephritis or prostatitis Discharge Exam PHYSICAL EXAMINATION Last 24h vital signs reviewed, see documentation in flowsheet Exam unchanged 01/04 except that urine is now clear yellow with extremely slight pink tinge, no clots in Kate tubing or bag General: comfortable appearing, no distress HEENT: Normocephalic, atraumatic, pupils round and equal, sclerae anicteric, no conjunctival injection, moist mucus membranes Lungs: Normal respiratory effort. Heart: Abdomen: Soft nondistended. Extremities: Warm, dry, well-perfused. No extremity edema. right calf is soft with no tenderness no swelling Neuro: Alert and oriented x 4, face symmetric, moves 4 extremities well Psych: Normal affect and behavior Discharge Data Allergies Allergy/AdvReac Type Severity Reaction Status Date / Time No Known Drug Allergies Allergy Verified 12/20/22 09:43 Consultations 12/24/22 14:19 ED Decision to Admit Stat 12/24/22 15:04 Consult Urology Stat Ordered Studies 12/24/22 13:35 CT abd pelvis wo con Stat 12/31/22 10:15 CT abdomen pelvis wo/w con Urgent 12/31/22 21:02 US venous doppler LE BI Routine 01/04/23 10:19 US venous duplex leg [US venous doppler LE RT] Stat KUB X-Ray 12/24/22 09:49 KUB HISTORY: Acute generalized abdominal pain with constipation constipation COMPARISON: None FINDINGS: Brachytherapy seeds of the prostate. Mild colonic fecal retention. Nonobstructive bowel gas pattern. The renal shadows are obscured by bowel gas. Arterial calcifications. No renal calculi. No ureteral calculi. No pneumoperitoneum or pneumatosis. Degenerative changes of the spine, pelvis and hips. No fracture. IMPRESSION: 1. Nonobstructive bowel gas pattern. 2. Colonic stool volume is mild and within normal limits. ACT 112: Negative or not required by law. The above report was generated using voice recognition software. It may contain grammatical, syntax or spelling errors. Electronically signed by: Jesse Toscano M.D. 12/24/2022 10:26 AM Chest X-Ray 12/24/22 12:27 SINGLE VIEW CHEST CLINICAL HISTORY: Atypical chest pain. FINDINGS: 2 AP, portable, upright chest radiographs are compared to study dated 04/08/2018. The heart is enlarged noting atherosclerotic calcification of the thoracic aorta. The pulmonary vasculature is noncongested. Chronic interstitial thickening similar to previous. Scarring/atelectasis is noted in both lung bases. The lungs and pleural spaces are otherwise clear. No pneumothorax is seen. The skeletal structures are osteopenic. The bony thorax is grossly intact. IMPRESSION: Cardiomegaly with no active disease in the chest. ACT 112: Negative or not required by law. Electronically signed by: Harpreet Osuna M.D. 12/24/2022 1:02 PM Abdomen/Pelvis CT 12/24/22 13:35 CT SCAN OF THE ABDOMEN AND PELVIS WITHOUT IV CONTRAST CLINICAL HISTORY: Hematuria. Renal insufficiency. COMPARISON STUDY: Abdominal radiograph dated 12/24/2022. TECHNIQUE: CT scan of the abdomen and pelvis is performed from the lung bases to the proximal femora. Images are reviewed in the axial, sagittal, and coronal planes. IV contrast was not administered for this examination. A dose lowering technique was utilized adhering to the principles of ALARA. CT DOSE: 1506.87 mGy.cm FINDINGS: Lung bases: The heart is normal in size and without pericardial effusion. Calcified pleural plaques are present at both lung bases, typical for asbestos- related pleural disease. No airspace consolidation or pleural effusion is identified. Calcified granulomas are seen in the left lower lobe. A small hiatal hernia is noted. Liver: The unenhanced liver is normal in size, contour, and attenuation. There is no intrahepatic biliary ductal dilatation. Gallbladder: Distended but otherwise normal appearance. Spleen: Normal in size and attenuation. There are numerous calcified splenic granulomas. Pancreas: Unremarkable. Adrenal glands: Unremarkable. Kidneys: The unenhanced kidneys there is mild cortical atrophy. There is mild bilateral hydroureteronephrosis, likely related to the greater bladder distention. No renal calculi are identified. There is no evidence of contour deforming renal mass lesion. Abdominal vasculature: The abdominal aorta is normal in course and caliber noting moderate to advanced atherosclerotic calcification. Bowel: There is mild to moderate colonic diverticulosis without CT evidence of acute diverticulitis. No bowel obstruction is seen. Moderate fecal retention is noted throughout the colon. The appendix is well-visualized and normal. Peritoneum: There is no intraperitoneal free air or abdominal ascites. There is a fat-containing umbilical hernia. Lymphadenopathy: None. Pelvic viscera: A Kate catheter is in place. The bladder is markedly distended. The bladder somewhat hyperdense material consistent with blood clots. Pericystic infiltration is noted. The prostate gland is enlarged and heterogeneous noting brachytherapy implants in place. Skeletal structures: The skeletal structures are osteopenic. Moderate to advanced lumbosacral spondylosis is noted. No lytic or blastic lesions are seen. IMPRESSION: 1. The bladder is distended with a Kate catheter in place. A large amount of hyperdense material is seen within the bladder lumen, typical for blood clots. Follow-up with urology is recommended. 2. There is mild bilateral hydroureteronephrosis, likely related to the degree of bladder distention. 3. Asbestos related pleural disease. 4. Additional findings as above. ACT 112: Negative or not required by law. Electronically signed by: Harpreet Osuna M.D. 12/24/2022 2:51 PM Chest X-Ray 12/30/22 07:00 XR chest 2V PA/lateral HISTORY: low-grade fever, cough COMPARISON: Chest 12/24/2022. FINDINGS: There are low lung volumes. No pneumothorax. No pleural effusions. No new focal lung consolidations to suggest a pneumonia. No evidence for pulmonary edema. The cardiac silhouette is normal in size. IMPRESSION: No acute process. ACT 112: Negative or not required by law. Electronically signed by: Jaleel Trejo M.D. 12/30/2022 9:46 AM Abdomen/Pelvis CT 12/31/22 10:15 CT abdomen pelvis wo/w con CLINICAL HISTORY: gross hematuria TECHNIQUE: Helical axial images of the abdomen and pelvis were obtained. Automated dose lowering techniques and/or adjustment according to patient size were utilized for this exam. This exam was performed with and without intravenous contrast. CT DOSE: 3524.21 mGy.cm COMPARISON: Comparison is made to CT abdomen pelvis 12/24/2022 FINDINGS: Lower chest: Small right pleural effusion. Underlying atelectasis is seen. Bilateral pleural thickening and calcifications are noted. Liver: Unremarkable. No focal lesions are seen. Gallbladder and biliary tree: No calcified gallstones. Normal caliber wall. No intra- or extrahepatic biliary ductal dilation. Pancreas: Unremarkable, no focal lesions. Spleen: Calcifications are noted in the spleen compatible with prior granulomatous disease. Adrenals: Unremarkable. Kidneys and ureters: Perinephric stranding is noted bilaterally. Bladder: Kate catheter is seen. Reproductive organs: Brachytherapy seeds are seen in the prostate. Bowel: Diverticulosis is seen without diverticulitis. The appendix is normal. Lymph nodes Retroperitoneal: Unremarkable. Pelvic: Unremarkable. Mesenteric: Unremarkable. Peritoneum: Normal. Vessels: Atherosclerotic calcifications are seen. Abdominal wall: A fat-containing umbilical hernia is seen. Bones: Degenerative changes in the visualized spine. IMPRESSION: 1. No acute abnormalities and in particular no evidence of urothelial lesion. 2. Small right pleural effusion and left pleural thickening with bilateral calcifications, compatible with asbestos related pleural disease. ACT 112: Negative or not required by law. Electronically signed by: Abhi Henderson M.D. 12/31/2022 2:05 PM Venous Doppler Study 12/31/22 21:02 BILATERAL LOWER EXTREMITY VENOUS DOPPLER HISTORY: Chronic pain of the right lower leg low-grade fevers, immobility; eval DVT COMPARISON STUDY: None. FINDINGS: Occlusive thrombus is noted within the duplicated right peroneal veins within the right lower leg. No left lower extremity DVT. Arterial calcifications. IMPRESSION: 1. Right lower extremity DVT. 2. No left lower extremity DVT. ACT 112: Negative or not required by law. Electronically signed by: Jesse Toscano M.D. 01/01/2023 7:05 AM Venous Doppler Study 01/04/23 10:19 US venous doppler LE RT CLINICAL HISTORY: follow up R calf DVT TECHNIQUE: Right lower extremity real-time compression venous ultrasound with Color Doppler imaging. Utilizing real-time ultrasonic imaging multiple real time high-resolution ultrasonic images with compression and noncompression maneuvers of the deep venous system in addition to color doppler imaging were performed from the common femoral vein through the proximal calf veins. COMPARISON: Comparison is made to previous Doppler ultrasound 12/31/2022 FINDINGS/IMPRESSION: Currently there is normal compressibility of the deep venous system from the common femoral vein through the proximal calf veins, previously noted right peroneal deep venous thrombus appears resolved. No superficial venous thrombosis is identified. ACT 112: Negative or not required by law. Electronically signed by: Abhi Henderson M.D. 01/04/2023 11:43 AM 01/04/23 06:13 01/04/23 06:13 Hospital Course (1) Hematuria: Gross hematuria with clots obstructing bladder present on admission. Exact etiology of hematuria uncertain. Diff dx - bladder inflammation or lesion (although none seen on CT a/p x 2) vs UTI vs prostatic in origin vs ureteral in origin. History of prostate cancer s/p brachytherapy with most recent PSA < 0.008. Aspirin and celebrex were stopped Kate was placed and required hand irrigation for evacuation of clots Completed antibiotics, see below Urology consulted Eventually hematuria resolved Urology recommended discharge with kate, they will schedule appointment for cystoscopy and voiding trial in 2 weeks (2) Acute renal failure (ARF): Present on admission. Obstructive due to gross hematuria with clots in bladder. kate insertion at admission with improved creatinine and good UOP. Asa and celebrex on hold Indapamide and losartan had been held initially Peak Cr was 5.2, normalized to baseline Resumed ARB and indapamide on discharge (3) Low grade fever: He had prolonged low grade fevers with single true fever to 38.1 on 12/30. He was treated starting 12/20 with cipro po for potential UTI. Ceftriaxone was started on admission 12/24. Changed to daptomycin and ertapenem 12/31 which were continued through 01/03. Overall had total of 14 days broad spectrum antibiotics with good urinary coverage. Low grade temps did decrease in frequency and possibly resolved. Three separate urine cultures (including in clinic 12/20) were negative and several sets of blood cultures were negative. He had lack of focal symptoms excepting the hematuria. Two separate CT of abdomen/pelvis unrevealing except some stranding around kidneys and ureters. Complicated UTI with pyelonephritis or prostatitis is possible and can cause prolonged temps or perhaps this is a noninfectious phenomenon. He appears well, feels well and is asymptomatic. CRP did decrease from 4's to 1. Stopped antibiotics at time of discharge and will observe off them. He will call if having temp of 101, recurrent gross hematuria or otherwise feeling ill. other infectious testing this admission: * anaplasmosis and lyme testing neg * resp viral panel and COVID neg * blood cx's from 12/24 negative, 12/30/22 - ngtd (4) Deep vein thrombosis (DVT) of calf muscle vein of right lower extremity: asymptomatic and detected during fever workup, peroneal vein. provoked by hospitalization. was not on chemoprophylaxis because of hematuria. -discussed risks:benefits of anticoagulation with patient and his sons especially risk of provoking hematuria. discussed alternative strategy of monitor sx and serial duplex -discussed with urology who ok'd trial of anticoagulation -had trial anticoagulation with apixaban 11 pm and this was a failure - quickly developed recurrent gross hematuria and clots within hours of single dose, which took 48h to clear again -planned strategy of serial duplex to follow calf DVT, discussed today with Dr. Leal who also discussed with vascular surgeon. Plan was for repeat duplex today then in 2 weeks. Repeat duplex today showed NO RLE DVT, thus further follow up not needed. Perhaps was not present to begin with (just nonvisualization of veins) or has resolved. (5) Acute blood loss anemia: 2nd to #2. s/p venofer 300mg IV x 3 doses. Hct stable (6) Hypothyroidism: TSH 7.005 in July 2022. TSH 2.2 this admission. Continue levothyroxine 25 mcg PO daily. (7) Hx of prostatic malignancy: noted s/p brachytherapy for such most recent PSA undetectable (8) Acute urinary retention: Resolved with kate Consulted urology - See discussion above Will need kate at hospital d/c - spoke with RN who will work on teaching and gathering supplies Pt and family counseled about the kate (9) HTN (hypertension): resumed home meds (10) Regional colitis: Sulfasalazine placed on hold at time of admission no symptoms to suggest active colitis, had some antibiotic associated diarrhea which resolved during the admission bowels normal on CT a/p c diff negative resume at discharge Plan updated pt's sons at bedside 12/28, 01/01 little updated at bedside 12/30, 01/01 updated pt's son Alexandre extensively on 12/31 by phone care d/w [facility] 01/01 with PCP 01/04 Total Time Total Time Spent Total Time Spent (In Minutes): 70 minutes spent coordinating care for discharge Discharge Plan Discharge Items Patient Disposition: Home - Home Health Services Reason For Visit: JEN, GROSS HEMATURIA Discharge Diagnosis: acute kidney injury secondary to bladder outlet obstruction from gross hematuria with clots, possible complicated UTI with pyelonephritis or prostatitis, unable to determine Condition on Discharge: Fair Activity: Resume your previous activity Non-emergency contact: Primary Care Provider and Urologist Call non-emergency contact if: you have any medication questions, your symptoms worsen and your temperature is above 101 Follow-up/Referrals: Best Leal MD [Primary Care Provider] - 01/15/23 2:00 pm Diet: Regular Addtl Attending Provider Instructions: Dear Mr. Soto, You were hospitalized for bloody urine that formed clots and blocked your bladder, this caused kidney injury which has resolved You were treated with 2 weeks of antibiotics total for possible urinary/kidney/prostate infection, fevers resolved and all urine cultures were negative for bacteria You need to keep the kate catheter in place - urology should be calling you to schedule cystoscopy procedure and voiding trial in 2 weeks -call the urologist if significantly bloody urine recurs - slightly pink is ok, but call if it is red or you see clots -go to the ER if you develop severely bloody urine, lots of blood clots, or the flow of urine from the catheter is blocked, or if you have fever 101 or higher -do not take medications that could thin your blood for now - this includes celebrex, aspirin, ibuprofen/motrin/advil, and naproxen/aleve -it is fine to take tylenol/acetaminophen as directed for mild pain such as headache or arthritis pain You may have had a blood clot in your right calf (or perhaps the vein was just not able to be seen on the first ultrasound test). Regardless, there is no clot present on the ultrasound today - it either resolved or was never there to begin with -follow up with Dr. Leal's office as scheduled Your B12 level was tested and it is in the low-normal range. We recommend you take a vitamin B12 supplement - this is available over the counter at the drugstore. It helps with anemia. You may also want to eat plenty of iron-rich foods. Iron supplements don't absorb very well but you may take an iron supplement every other day for 4-6 weeks. Iron supplements can cause constipation for some people. It was a pleasure taking care of you in the hospital, Delmi Saleh MD Pending Studies at Discharge: No Studies:: CT scans of abdomen and pelvis, ultrasounds of legs Stand-Alone Forms: [facility], Smoking Cessation Medications and DC Order Prescriptions: New cyanocobalamin (vitamin B-12) 1,000 mcg capsule 1,000 mcg PO DAILY Qty: 1 0RF Rx Instructions: buy over the counter ferrous sulfate 325 mg (65 mg iron) tablet 325 mg PO Q OTHER DAY Qty: 1 0RF Continued indapamide 1.25 mg tablet 1.25 mg PO QAM Qty: 90 3RF losartan 25 mg tablet 25 mg PO DAILY Qty: 90 3RF sulfasalazine 500 mg tablet 2,000 mg PO BID Qty: 720 3RF levothyroxine 25 mcg tablet 25 mcg PO DAILY Qty: 90 3RF Calcium 600 + D(3) 600 mg calcium- 200 unit Capsule 1 tab PO BID Rx Instructions: PER PT "CAN'T SWALLOW". Discontinued aspirin 81 mg tablet,chewable 81 mg PO DAILY Qty: 30 0RF celecoxib [Celebrex] 200 mg capsule 200 mg PO DAILY Qty: 90 3RF ciprofloxacin HCl [Cipro] 500 mg tablet 500 mg PO BID 7 Days Qty: 14 0RF Rx Instructions: Start Date 12/20/22 - End Date 12/27/22 Discharge Orders: Discharge Order (Routine); Ordered 01/04/23 Ordered By: Delmi Barbosa/Other Patient Handouts: Prediabetes, 5 Steps for Eating Healthier Admission Data Admit Date/Time: 12/24/22 15:08 Attending Provider: Delmi Saleh Admit Provider: Kenyon Palacios Primary Care Provider: Best Leal Other Providers: Kenyon Palacios; Adolfo Barbour Other Interventions: Discharge Summary Assessment (RN) Last Done: 01/04/23 13:13 Coding Level of Care Code 37424 INP/OBS DISCH >30 MIN Diagnoses Hematuria R31.0 Hematuria type: gross Acute renal failure (ARF) N17.9 Acute renal failure type: unspecified Low grade fever R50.9 Deep vein thrombosis (DVT) of calf muscle vein of right lower extremity I82.461 Acute blood loss anemia D62 Hypothyroidism E03.9 Hx of prostatic malignancy Z85.46 Acute urinary retention R33.8 HTN (hypertension) I10 Regional colitis K50.10
[2023-01-08] MEDS ORDERED: APIXABAN 5 MG TABLET PO SCH (21:00)
== END 2023-01-04 13:33 | disposition home or self-care (01) | DRG 683 ==
LOC: ED 09:31 → SUATTDRO 15:08 → EDINP 15:08 → 2N 18:01

== ENCOUNTER 2023-01-25 14:44 | Observation (INO) ==
--- NOTE | 2023-01-25 15:05 | ED Triage Note ---
Date of Service January 25, 2023 Provider in Triage Author: Funmi Pierre. History of Present Illness This patient was briefly evaluated while in triage. An abbreviated physical exam was performed. This patient is a 87-year-old Male who presents to the ED for evaluation for IV abx for positive urine culture with kate. Seen on 01/23 for urinary retention. Kate placed at this time. Discharged home on Cipro but not sensitive. Physical Exam Constitutional: alert and oriented x3. no acute distress. HEENT: normocephalic, atraumatic. normal conjunctiva.PERRLA. EOM's grossly intact. Respiratory: lungs are clear to auscultation without wheezes, rhonchi, or rales bilaterally. equal chest rise. normal respiratory effort, no accessory muscle use. Cardiovascular: normal heart sounds without murmur. regular rate and rhythm. GI: abdomen is soft, nontender. No palpable masses. No rebound tenderness or guarding. MSK: moves all 4 extremities spontaneously Psych:appropriate mood and affect. Initial orders for labs and / or imaging were placed and patient was placed in the waiting area until a bed is available. Please see further documentation for the full ED course.
[2023-01-25 17:50] LABS: Basophils # (auto) 0.04 K/uL (0.00-0.20); Basophils % (auto) 0.5 %; Eosinophils % (auto) 2.6 %; Hematocrit (blood only) 34.3 % (42.0-52.0); Immature Granulocytes # (auto) 0.02 K/uL (0.01-0.20); Immature Granulocytes % (auto) 0.3 %; Lymphocytes # (auto) 1.42 K/uL (1.20-3.40); Lymphocytes % (auto) 18.4 %; Mean Corpuscular Hemoglobin 30.1 pg (25.0-34.0); Mean Corpuscular Hgb Conc 32.1 g/dL (32.0-36.0); Mean Corpuscular Volume 93.7 fL (80.0-100.0); Mean Platelet Volume 10.3 fL (9.4-12.4); Monocytes # (auto) 1.06 K/uL (0.11-0.59); Monocytes % (auto) 13.8 %; Neutrophils # (auto) 4.96 K/uL (1.40-6.50); Neutrophils % (auto) 64.4 %; Platelet Count 195 K/uL (130-400); RDW Coefficient of Variation 14.7 % (11.5-14.5); RDW Standard Deviation 50.8 fL (36.4-46.3); Red Blood Count 3.66 M/uL (4.70-6.10)
[2023-01-25] MEDS ORDERED: DAPTOmycin 325 MG in SYRINGE 0 ML IV SCH (18:00)
[2023-01-25 18:01] LABS: Albumin Globulin Ratio 0.9 (0.9-2); Albumin Level 3.5 gm/dl (3.4-5.0); BUN Creatinine Ratio 18.5 (10-20); Bilirubin,Total 0.4 mg/dl (0.2-1.0); Calcium 8.9 mg/dl (8.6-10.3); Creatinine Clr Calc Pharmacy 47.1 ml/min; Est GFR (African American) 62.4 ml/min; Est GFR (Non-African American) 53.8 ml/min; Globulin 3.9 gm/dl (2.5-4.0); Potassium 3.6 mmol/L (3.5-5.1); Total Protein 7.4 gm/dl (6.0-8.3)
--- NOTE | 2023-01-25 18:02 | Emergency Department Note ---
Impression & Plan Complicated UTI (urinary tract infection), Kate catheter present, History of urinary retention ED Provider Note NAME: LISA CID AGE: 87 SEX: M ARRIVES VIA: Walk-In INFORMANT: Patient ED PROVIDER(S): Israel Doty MD CHIEF COMPLAINT: UTI, Called back to ED PLAN: Disposition: Admit MEDICAL DECISION MAKING: The patient is a pleasant 87-year-old gentleman with past medical history of LUTS with urinary retention who presents to the emergency department for evaluation and admission after having a urine culture from his emergency department visit on 01/23 result with coag negative staph which is resistant to oxacillin and Bactrim. The sample was taken from the patient's presentation with acute urinary retention following a cystoscopy on 01/21. The urine sample was taken following placement of a Kate catheter due to urinary retention and urinalysis did not show evidence of contamination. Patient was contacted and reported he had felt well and no systemic symptoms such as fevers, chills, vomiting. He reports that his catheter is continued to drain. He was discharged on ciprofloxacin out of caution however it is not certain that this would appropriately cover his urine culture on consultation with emergency department pharmacist. Urine also growing aditya of unclear significance at this time. Of note, the patient did arrive to emergency department during time of high volume, acuity and prolonged emergency department waiting times. Critical pathways initiated from triage. Patient was initially evaluated from the B pod Sub waiting room and eventually placed in B4. WBC and platelets within normal limits. H/H similar to prior range values. Chemistry without metabolic acidosis. Electrolytes and LFTs without significant unreality. Lactic acid 1.4, within normal limits. Procalcitonin is undetectable. Lipase not elevated. UA obtained following catheter exchange and demonstrates WBCs with epithelial cells and yeast present. Blood cultures were obtained and treatment was initiated with IV daptomycin per patient's recent urine culture sensitivities. The patient agrees with plan for admission for further management. Case was discussed with Dr. Chris, [facility] hospitalist, who will evaluate the patient for admission. Triage Nursing notes reviewed and agree them. Prior/external medical records reviewed Vital Signs: reviewed Differential diagnosis: Renal colic, UTI, appendicitis, diverticulitis, mesenteric ischemia, aortic pathology, infections, inflammatory bowel disease, PUD, biliary pathology, as well as other pathologies. ER treatment provided: See below. Diagnostics interpreted by me: Cardiac Monitoring: An order for continuous cardiac monitoring was placed and demonstrated normal sinus rhythm, 90 bpm, no ectopy. Laboratory studies: See below Imaging studies: See below Consultations: ED Pharmacist. Dr. Chris, [facility] hospitalist. HPI: The patient is a pleasant 87-year-old gentleman with past medical history of LUTS with urinary retention who presents to the emergency department for evaluation and admission after having a urine culture from his emergency department visit on 01/23 result with coag negative staph which is resistant to oxacillin and Bactrim. The sample was taken from the patient's presentation with acute urinary retention following a cystoscopy on 01/21. The urine sample was taken following placement of a Kate catheter due to urinary retention and urinalysis did not show evidence of contamination. Patient was contacted and reported he had felt well and no systemic symptoms such as fevers, chills, vomiting. He reports that his catheter is continued to drain. He was discharged on ciprofloxacin out of caution however it is not certain that this would appropriately cover his urine culture on consultation with emergency department pharmacist. Urine also growing aditya of unclear significance at this time. ROS: See above HPI for pertinent positives & negatives. A total of 10 systems reviewed and were otherwise negative. VITALS:See Below PHYSICAL EXAMINATION: GENERAL: Awake, alert, well-appearing, in no distress HENT: Normocephalic, atraumatic. Oropharynx unremarkable. EYES: Normal conjunctiva. Sclera non-icteric. NECK: Supple. No nuchal rigidity. FROM. No JVD. RESPIRATORY: Clear to auscultation. CARDIAC: Regular rate, normal rhythm. Extremities warm and well perfused. Pulses equal. ABDOMEN: Soft, non-distended. No tenderness to palpation. No rebound or guarding. No masses. MUSCULOSKELETAL: Chest examination reveals no tenderness. The back is symmetrical on inspection without obvious abnormality. There is no CVA tenderness to palpation. No joint edema. LOWER EXTREMITIES: Calves are equal size bilaterally and non-tender. No edema. No discoloration. NEURO: Normal sensorium. No sensory or motor deficits noted. SKIN: No rash or jaundice noted. Israel Doty MD Past Med/Surg History Medical History Kate catheter present [place] ER visit 01/22/2023 kate catheter placed and present History of COVID-2021, mild symptoms Deep vein thrombosis (DVT) of calf muscle vein of right lower extremity RLE DVT on 12/31/22 doppler, f/u venous doppler study 01/04/23 noted "Currently there is normal compressibility of the deep venous system from the common femoral vein through the proximal calf veins, previously noted right peroneal deep venous thrombus appears resolved." Acute renal failure (ARF) 12/2022, resolved Intermittent gross hematuria Hypothyroidism History of colon polyps Tubulovillous adenoma resected 2008 Lumbosacral radiculopathy Hx of prostatic malignancy Polyneuropathy Neurological symptoms HTN (hypertension) Surgical History History of tonsillectomy and adenoidectomy Hx of cataract surgery Family History Mother HX: breast cancer Breast cancer Father DM II (diabetes mellitus, type II), controlled Benign essential HTN Brother Diabetes Hypertension Sister Cancer , unknown type Other No family history of adverse response to anesthesia No family history of bleeding disorder Denies family history of Ovarian cancer Prostate cancer Myocardial infarction Colorectal cancer Social History Smoking Status: Never smoker Tobacco Type: Cigarettes Age Started Using Tobacco: 14; Age Quit Using Tobacco: 33; Second Hand Exposure: No; Do You Dip or Chew Tobacco: No; Hx Alcohol Use: No Hx Substance Use: No Preferred Language: Chilean Communication Ability: Effective Sales And Events Coordinator Required: No Beliefs That Will Affect Care: None marital status: Current Living Situation: Alone Current Living Situation Comment: With grandson current occupational status: retired current occupation: construction technician/pipi fitter. How many Children do You have: 4 Feels Safe at Home: Yes Childhood Exposure to Second-Hand Smoke: Yes Diet: regular caffeine: Yes Dental Care, Regularly: Yes Physical Activity Frequency: 5-6 Times per Week Seatbelt Use: always Sunscreen Use: No Assistive Devices: None Allergies Allergies Allergy/AdvReac Type Severity Reaction Status Date / Time No Known Drug Allergies Allergy Verified 01/25/23 13:43 Home Meds Home Medications Medication Instructions Recorded Confirmed calcium carbonate 600 mg-vitamin 1 tab PO QAM 04/08/18 01/25/23 D3 5 mcg (200 unit) capsule (Calcium 600 + D(3)) cyanocobalamin (vitamin B-12) 1,000 mcg PO QAM 01/25/23 01/25/23 1,000 mcg capsule ferrous sulfate 325 mg (65 mg 325 mg PO UD 01/25/23 01/25/23 iron) tablet levothyroxine 25 mcg tablet 25 mcg PO QAM 01/25/23 01/25/23 losartan 25 mg tablet 25 mg PO QAM 01/25/23 01/25/23 Previous Rx's Medication Instructions Recorded indapamide 1.25 mg tablet 1.25 mg PO QAM #90 tabs 04/23/22 sulfasalazine 500 mg tablet 2,000 mg (4 x 500 mg) PO BID #720 08/08/22 tabs ciprofloxacin HCl 250 mg tablet 250 mg PO BID #14 tabs 01/23/23 (Cipro) Results & Data (ED) Vital Signs Vital Signs - 24 hr 01/25/23 14:57 01/25/23 17:58 Temperature 36.5 C Temperature Source Temporal Artery Scan Pulse Rate 83 Pulse Rate [Right Finger] 78 Respiratory Rate 18 18 Respiratory Effort / Characteristics Non-Labored Spontaneous Non-Labored Respiratory Depth Normal Normal Blood Pressure 114/71 Blood Pressure [Left Arm] 159/81 H Blood Pressure Mean 85 Blood Pressure Mean [Left Arm] 107 Blood Pressure Position Sitting Blood Pressure Position [Left Arm] Sitting Pulse Oximetry 96 98 Oxygen Delivery Method Room Air Room Air Sepsis Recent Fever Within 48 Hours No Sepsis New/Unexplained Change in Mental Status No Sepsis Action Taken by Nursing No Action Required Laboratory Data Attestation: I reviewed the patient's lab results. 01/25/23 15:43 01/25/23 15:43 Lab Results 01/25/23 01/25/23 Range/Units 15:43 18:35 WBC 7.70 (4.8-10.8) K/ul RBC 3.66 L (4.70-6.10) M/uL Hgb 11.0 L (14.0-18.0) g/dl Hct 34.3 L (42.0-52.0) % MCV 93.7 (80.0-100.0) fL MCH 30.1 (25.0-34.0) pg MCHC 32.1 (32.0-36.0) g/dL RDW Std Deviation 50.8 H (36.4-46.3) fL RDW Coeff of Aditya 14.7 H (11.5-14.5) % Plt Count 195 (130-400) K/uL MPV 10.3 (9.4-12.4) fL Immature Gran % (Auto) 0.3 % Neut % (Auto) 64.4 % Lymph % (Auto) 18.4 % Hendricks % (Auto) 13.8 % Eos % (Auto) 2.6 % Baso % (Auto) 0.5 % Neut # (Auto) 4.96 (1.40-6.50) K/uL Lymph # (Auto) 1.42 (1.20-3.40) K/uL Hendricks # (Auto) 1.06 H (0.11-0.59) K/uL Eos # (Auto) 0.20 (0.00-0.50) K/uL Baso # (Auto) 0.04 (0.00-0.20) K/uL Immature Gran # (Auto) 0.02 (0.01-0.20) K/uL Sodium 138 (136-145) mmol/L Potassium 3.6 (3.5-5.1) mmol/L Chloride 104 (98-107) mmol/L Carbon Dioxide 27 (21-32) mmol/L Anion Gap 7 (3-11) BUN 22 (6-23) mg/dl Creatinine 1.19 (0.6-1.4) mg/dl Est Cr Clr Drug Dosing 47.1 ml/min Est GFR ( Amer) 62.4 ml/min Est GFR (Non-Af Amer) 53.8 ml/min BUN/Creatinine Ratio 18.5 (10-20) Glucose 134 H (70-99(Fasting)) mg/dl Lactate 1.4 (0.4-2.0) mmol/L Calcium 8.9 (8.6-10.3) mg/dl Total Bilirubin 0.4 (0.2-1.0) mg/dl AST 22 (13-39) U/L ALT 16 (7-52) U/L Alkaline Phosphatase 68 (34-104) U/L Total Protein 7.4 (6.0-8.3) gm/dl Albumin 3.5 (3.4-5.0) gm/dl Globulin 3.9 (2.5-4.0) gm/dl Albumin/Globulin Ratio 0.9 (0.9-2) Lipase 75 (11-82) U/L Procalcitonin < 0.05 (0-0.5) ng/ml Administered Medications Sulfasalazine (Sulfasalazine 500 Mg Tablet) 2,000 mg PO BID ARTURO Stop: 02/24/23 20:59 Last Admin: 01/25/23 22:38 Dose: Not Given Documented By: ESTRELLA Discontinued Medications Daptomycin 325 mg/ Syringe 6.5 mls @ 3.25 mls/min IV Q24H ARTURO; Protocol Stop: 02/04/23 17:59 Last Admin: 01/25/23 18:40 Dose: 3.25 mls/min Documented By: CECE Miscellaneous (Patient's Height &/Or Weight Needed) 1 each N/A Q2H ARTURO Stop: 01/25/23 22:16 Last Admin: 01/25/23 22:37 Dose: 1 each Documented By: Admin: 01/25/23 21:24 Dose: Not Given Documented By: Admin: 01/25/23 21:24 Dose: Not Given Documented By: Admin: 01/25/23 21:23 Dose: 1 each Documented By: ESTRELLA Discharge Plan Visit Data Chief Complaint: Urinary Symptoms Stated Complaint: NEEDS ANTIBIOTIC IV, BLADDER INFECTION ED Provider: Israel Doty Discharge Problem: Complicated UTI (urinary tract infection), Kate catheter present, History of urinary retention Patient Disposition: Admitted As Inpatient Discharge Instructions Interventions: ED Discharge Assessment Last Done: 01/25/23 22:51
--- NOTE | 2023-01-25 18:07 | History & Physical Report ---
Date of Service January 25, 2023 Assessment & Plan (1) Complicated UTI (urinary tract infection): Plan: Clinically, patient is asymptomatic and denies urinary s/s, dysuria, urinary retention, flank pain, back pain, or burning with urination Positive urine culture on 01/23 for coag negative Staphylococcus and Krystle albicans/Dubliniensis Resistant to Bactrim and oxifloxacin; doxycycline with poor bladder penetration Patient was instructed to come in to the ED to receive IV antibiotic Started on daptomycin 4.5g IV q24h in ED Recent [facility] admission from 12/24-01/04 for hematuria and ARF Patient was also in the ED on 01/23 for urinary retention; had Kate placed, and was discharged on ciprofloxacin to 250 mg p.o. BID Kate was replaced again in the ED on 01/25 Catheter care QS Strict I&Os Acetaminophen as needed for pain/fever A.m. CBC, BMP, mag (2) Hx of prostatic malignancy: Plan: S/p brachytherapy for such Cystoscopy on 01/22 with intended surgery with Dr. Barbour on 01/31 due to prostatic enlargement/obstruction (3) HTN (hypertension): Plan: Continue indapamide, losartan Continue to monitor kidney function (4) Hypothyroidism: Plan: Continue levothyroxine Plan Disposition: Obs -admit to [facility] Full code Regular diet VTE PPx: SCDs Admission and Anticipated Discharge Date Admission Date: Patient seen and examined, chart reviewed, case discussed with Mary Castellanos I agree with the assessment and plan as above except as otherwise noted Labs and images reviewed 87-year-old male with history of complicated UTI who is recalled due to resistant coag negative staph cultures. This is resistant to fluoroquinolones, Bactrim, and penicillins. Sensitive to Doxy but this is with poor bladder penetration patient has been recommended for daptomycin therapy. At bedside he is nontoxic, normotensive, with normal pulse. Does not appear septic. Kate catheter has been exchanged and with light yellow urine. Can consider asymptomatic bacteriuria however patient is male patient with recent manipulation and Original UA was clean specimen without significant epis; agree with treating with daptomycin, if doing well can place ultrasound-guided IV and set up outpatient antibiotic infusions if needed. Fever curve and CBC trended. Agree with assessment and management above, no additional questions or concerns from patient at bedside History of Present Illness Chief Complaint: Urinary symptoms Primary Care Provider: Best Leal MD Alexandre is an 87-year-old male with PMH of HTN, hypothyroidism, prostatic malignancy, and prediabetes. He presented for a positive urine culture taken on 01/23 for coag negative Staphylococcus and Krystle albicans/Dubliniensis. Patient has been taking outpatient ciprofloxacin 250 mg p.o BID since Kate catheter was placed after coming into the ED on Tuesday 01/23 for urinary retention. Recent [facility] admission from 12/24 - 01/04 for hematuria and ARF. Of note, patient had a cystoscopy with Dr. Barbour on 01/22 and was scheduled for a follow-up prostate surgery on 01/31. He is asymptomatic on arrival. He reports he has not taken his medications today. He denies being on blood thinners or antiplatelets. Vital stable at time of admission. ED course: Daptomycin 4.5g IV ROS: Patient denies fever, chills, night sweats, headache, dizziness, lightheadedness, chest pain, pleuritic CP, SOB, abdominal pain, N/V/D, back pain urinary symptoms, blood in the urine or stool, burning with urination, numbness or tingling going down the legs or in the groin region. Patient denies PMH of NM, CVA, or diabetes Allergies Allergy/AdvReac Type Severity Reaction Status Date / Time No Known Drug Allergies Allergy Verified 01/25/23 13:43 Home Medications Medication Instructions Recorded Confirmed Type calcium carbonate 600 mg-vitamin 1 tab PO QAM 04/08/18 01/25/23 History D3 5 mcg (200 unit) capsule (Calcium 600 + D(3)) indapamide 1.25 mg tablet 1.25 mg PO QAM #90 tabs 04/23/22 01/25/23 Rx sulfasalazine 500 mg tablet 2,000 mg (4 x 500 mg) PO BID #720 08/08/22 01/25/23 Rx tabs cyanocobalamin (vitamin B-12) 1,000 mcg PO QAM 01/25/23 01/25/23 History 1,000 mcg capsule ferrous sulfate 325 mg (65 mg 325 mg PO UD 01/25/23 01/25/23 History iron) tablet levothyroxine 25 mcg tablet 25 mcg PO QAM 01/25/23 01/25/23 History losartan 25 mg tablet 25 mg PO QAM 01/25/23 01/25/23 History Past Med/Surg History Medical History Kate catheter present [facility] visit 01/22/2023 kate catheter placed and present History of COVID-19 2021, mild symptoms Deep vein thrombosis (DVT) of calf muscle vein of right lower extremity RLE DVT on 12/31/22 doppler, f/u venous doppler study 01/04/23 noted "Currently there is normal compressibility of the deep venous system from the common femoral vein through the proximal calf veins, previously noted right peroneal deep venous thrombus appears resolved." Acute renal failure (ARF) 12/2022, resolved Intermittent gross hematuria Hypothyroidism History of colon polyps Tubulovillous adenoma resected 2009 Lumbosacral radiculopathy Hx of prostatic malignancy Polyneuropathy Neurological symptoms HTN (hypertension) Surgical History History of tonsillectomy and adenoidectomy Hx of cataract surgery Family History Mother HX: breast cancer Breast cancer Father DM II (diabetes mellitus, type II), controlled Benign essential HTN Brother Diabetes Hypertension Sister Cancer , unknown type Other No family history of adverse response to anesthesia No family history of bleeding disorder Denies family history of Ovarian cancer Prostate cancer Myocardial infarction Colorectal cancer Social History Smoking Status: Never smoker Tobacco Type: Cigarettes Age Started Using Tobacco: 14; Age Quit Using Tobacco: 33; Second Hand Exposure: No; Do You Dip or Chew Tobacco: No; Hx Alcohol Use: No Hx Substance Use: No Preferred Language: Afghan Communication Ability: Effective Fur Storage Clerk Required: No Beliefs That Will Affect Care: None marital status: Current Living Situation: Alone Current Living Situation Comment: With grandson current occupational status: retired current occupation: construction laborer/pipi fitter. How many Children do You have: 4 Feels Safe at Home: Yes Childhood Exposure to Second-Hand Smoke: Yes Diet: regular caffeine: Yes Dental Care, Regularly: Yes Physical Activity Frequency: 5-6 Times per Week Seatbelt Use: always Sunscreen Use: No Assistive Devices: None Review of Systems Review of Systems: See HPI above Physical Exam Physical Exam: General: no acute distress; pleasant affect; non-toxic appearing; well- nourished; cooperative HEENT: normocephalic, atraumatic; no scleral icterus; PERRLA w/ EOMs intact; moist mucus membrane; vision and hearing grossly intact Neck: supple; no JVD; no lymphadenopathy; trachea midline Skin: warm, dry without signs of tenting; no cyanosis; no rashes, bruising, lesions, or erythema noted CV: chest wall NTP; RRR; S1/S2 normal; no murmurs/rubs/gallops; pulses intact and symmetric at radial, DP, and PT Lungs: no acute respiratory distress; symmetrical chest wall expansion; clear breath sounds across all lung desir w/o adventitious sounds; no wheezing ABD: Soft, NTP; BS present; no rebound/guarding; no ascites; no distention; negative CVA tenderness; no rashes or bruising on the abdomen or back : Kate catheter without signs of drainage, gross hematuria MSK: no tics or fasciculations; no edema noted in the LEs b/l, nonerythematous Neuro: A&Ox3; normal mood and affect; fluent speech; no focal deficits; sensation grossly intact in LEs B/L Results & Data Results & Data Vital Signs (Past 12 Hours) Vital Signs Temp Pulse Pulse Resp BP BP Pulse Ox 01/25/23 17:58 78 18 159/81 H 98 01/25/23 14:57 36.5 C 83 18 114/71 96 O2 Del Method 01/25/23 17:58 Room Air 01/25/23 14:57 Room Air Laboratory Results Abnormal lab results 01/25/23 Range/Units 15:43 RBC 3.66 L (4.70-6.10) M/uL Hgb 11.0 L (14.0-18.0) g/dl Hct 34.3 L (42.0-52.0) % RDW Std Deviation 50.8 H (36.4-46.3) fL RDW Coeff of Aditya 14.7 H (11.5-14.5) % [place] # (Auto) 1.06 H (0.11-0.59) K/uL Glucose 134 H (70-99(Fasting)) mg/dl Code Status & VTE Plan Code Status Full code VTE Prophylaxis Plan VTE Prophylaxis will be ordered: Yes PG Care Time/CCT Total # of Minutes Spent Total Time Spent with Patient: Total time spent is greater than 50% in coordination of care (as documented) at patient's floor/unit and/or counseling patient: Coding [place] [address] INT INP/OBS CARE 1/40MIN Patient Type Established Medical Decision Making Low Complexity Diagnoses Complicated UTI (urinary tract infection) N39.0 Hx of prostatic malignancy Z85.46 HTN (hypertension) I10 Hypothyroidism E03.9
[2023-01-25 19:54] LABS: Appearance Urine Cloudy (Clear); Bacteria Urine Automated Negative (Negative); Bilirubin Urine Negative (Negative); Blood Urine 2+ (Negative); Color Urine Dark Yellow; Glucose Urine UA Negative (Negative); Ketones Urine Negative (Negative); Leukocyte Esterase Urine 2+ (Negative); Nitrite Urine Negative (Negative); Protein Urine 2+ (Negative); Urobilinogen Urine Negative (Negative); WBC Urine Automated >30 /hpf (0-5)
[2023-01-25] MEDS ORDERED: ACETAMINOPHEN 325 MG TAB PO PRN (21:00)
[2023-01-25] MEDS: Patient's HEIGHT &/or WEIGHT Needed SCH ×3 (21:23→22:37)
[2023-01-25] MEDS: sulfaSALAzine 500 MG TABLET PO SCH (22:38)
[2023-01-26] MEDS ORDERED: LEVOTHYROXINE SODIUM 25 MCG TABLET PO SCH (06:30)
[2023-01-26 08:16] LABS: Basophils # (auto) 0.03 K/uL (0.00-0.20); Basophils % (auto) 0.4 %; Eosinophils # (auto) 0.18 K/uL (0.00-0.50); Eosinophils % (auto) 2.6 %; Hematocrit (blood only) 32.2 % (42.0-52.0); Hemoglobin 10.4 g/dl (14.0-18.0); Immature Granulocytes # (auto) 0.02 K/uL (0.01-0.20); Immature Granulocytes % (auto) 0.3 %; Lymphocytes # (auto) 0.86 K/uL (1.20-3.40); Lymphocytes % (auto) 12.5 %; Mean Corpuscular Hemoglobin 30.1 pg (25.0-34.0); Mean Corpuscular Hgb Conc 32.3 g/dL (32.0-36.0); Mean Corpuscular Volume 93.3 fL (80.0-100.0); Mean Platelet Volume 10.2 fL (9.4-12.4); Monocytes % (auto) 13.1 %; Neutrophils % (auto) 71.1 %; Platelet Count 170 K/uL (130-400); RDW Coefficient of Variation 14.6 % (11.5-14.5); RDW Standard Deviation 49.9 fL (36.4-46.3); Red Blood Count 3.45 M/uL (4.70-6.10); White Blood Count 6.89 K/ul (4.8-10.8)
[2023-01-26] MEDS: sulfaSALAzine 500 MG TABLET PO SCH (08:23)
[2023-01-26 08:32] LABS: BUN Creatinine Ratio 17.2 (10-20); Calcium 8.7 mg/dl (8.6-10.3); Creatinine Clr Calc Pharmacy 56.7 ml/min; Est GFR (African American) 77.9 ml/min; Est GFR (Non-African American) 67.2 ml/min; Potassium 3.6 mmol/L (3.5-5.1)
[2023-01-26] MEDS ORDERED: INDAPAMIDE 1.25 MG TAB PO SCH (09:00)
[2023-01-26] MEDS ORDERED: LOSARTAN POTASSIUM 25 MG TAB PO SCH (09:00)
--- NOTE | 2023-01-26 17:41 | Discharge Summary ---
Date of Service January 26, 2023 Admission HPI Per Admitting Provider Alexandre is an 87-year-old male with PMH of HTN, hypothyroidism, prostatic malignancy, and prediabetes. He presented for a positive urine culture taken on 01/23 for coag negative Staphylococcus and Krystle albicans/Dubliniensis. Patient has been taking outpatient ciprofloxacin 250 mg p.o BID since Holly catheter was placed after coming into the ED on Tuesday 01/23 for urinary retention. Recent [facility] admission from 12/24 - 01/04 for hematuria and ARF. Of note, patient had a cystoscopy with Dr. Barbour on 01/22 and was scheduled for a follow-up prostate surgery on 01/31. He is asymptomatic on arrival. He reports he has not taken his medications today. He denies being on blood thinners or antiplatelets. Vital stable at time of admission. ED course: Daptomycin 4.5g IV ROS: Patient denies fever, chills, night sweats, headache, dizziness, lightheadedness, chest pain, pleuritic CP, SOB, abdominal pain, N/V/D, back pain urinary symptoms, blood in the urine or stool, burning with urination, numbness or tingling going down the legs or in the groin region. Patient denies PMH of ND, CVA, or diabetes Principal Diagnosis Blood urinary tract infection most likely contamination as per my discussion with senior market intelligence consultant ID over the phone Discharge Exam General: no acute distress; pleasant affect; non-toxic appearing; well- nourished; cooperative HEENT: normocephalic, atraumatic; no scleral icterus; PERRLA w/ EOMs intact; moist mucus membrane; vision and hearing grossly intact Neck: supple; no JVD; no lymphadenopathy; trachea midline Skin: warm, dry without signs of tenting; no cyanosis; no rashes, bruising, lesions, or erythema noted CV: chest wall NTP; RRR; S1/S2 normal; no murmurs/rubs/gallops; pulses intact and symmetric at radial, DP, and PT Lungs: no acute respiratory distress; symmetrical chest wall expansion; clear breath sounds across all lung desir w/o adventitious sounds; no wheezing ABD: Soft, NTP; BS present; no rebound/guarding; no ascites; no distention; negative CVA tenderness; no rashes or bruising on the abdomen or back : Holly catheter without signs of drainage, gross hematuria MSK: no tics or fasciculations; no edema noted in the LEs b/l, nonerythematous Neuro: A&Ox3; normal mood and affect; fluent speech; no focal deficits; sensation grossly intact in LEs B/L Discharge Data Allergies Allergy/AdvReac Type Severity Reaction Status Date / Time No Known Drug Allergies Allergy Verified 01/25/23 13:43 Consultations 01/25/23 17:58 ED Decision to Admit Stat 01/26/23 08:11 Consult Infectious Diseases Routine Hospital Course (1) Complicated UTI (urinary tract infection): Clinically, patient is asymptomatic and denies urinary s/s, dysuria, urinary retention, flank pain, back pain, or burning with urination Positive urine culture on 01/23 for coag negative Staphylococcus and Krystle albicans/Dubliniensis Patient was instructed to come in to the ED to receive IV antibiotic Started on daptomycin 4.5g IV q24h in ED Recent [facility] admission from 12/24-01/04 for hematuria and ARF Patient was also in the ED on 01/23 for urinary retention; had Holly placed, and was discharged on ciprofloxacin to 250 mg p.o. BID Holly was replaced again in the ED on 01/25 -Patient has no urinary symptoms as mentioned above, patient does not have a leukocytosis shift to the left, patient is afebrile, I discussed the case over the phone with senior market intelligence consultant ID, who is under the impression that is most likely contamination, she does not recommend any treatment, therefore daptomycin was discontinued as well as Diflucan. Patient was discharged home (2) Hx of prostatic malignancy: S/p brachytherapy for such Cystoscopy on 01/22 with [address] surgery [address] Dr[address] Barbour on 01/31 due to prostatic enlargement/obstruction (3) HTN (hypertension): Continue indapamide, losartan Continue to monitor kidney function (4) Hypothyroidism: Continue levothyroxine Plan Disposition: Obs -admit to [facility] Full code Regular diet VTE PPx: SCDs Total Time Total Time Spent Total Time Spent (In Minutes): 45 min Discharge Plan Discharge Items Patient Disposition: Home - Self-Care Reason For Visit: COMPLICATED UTI Discharge Diagnosis: rule out UTI Activity: Resume your previous activity Lifting: Gradually increase as tolerated Bathing: No limitations Exercise/Sports: Gradually increase as tolerated Driving/Machine Use: No limitations Non-emergency contact: Primary Care Provider and Urologist Call non-emergency contact if: you have any medication questions, your symptoms worsen, your pain is not controlled and your rectal temperature is above 100.4 Follow-up/Referrals: Best Leal MD [Primary Care Provider] - Diet: Low Fat and Low Sodium (2gm) Addtl Attending Provider Instructions: PER MY DISCUSSION WITH INFECTIOUS PHYSICIAN YOUR URINE CULTURE FINDINGS ARE DUE TO CONTAMINATION AND YOU DO NOT NEED TO TAKE ANY ANTIBIOTICS.PLEASE FOLLOW WITH YOUR UROLOGIST YOU INSTRUCTED Pending Studies at Discharge: No Stand-Alone Forms: My [facility], Smoking Cessation Medications and DC Order Prescriptions: Continued indapamide 1.25 mg tablet 1.25 mg PO QAM Qty: 90 3RF sulfasalazine 500 mg tablet 2,000 mg PO BID Qty: 720 3RF Calcium 600 + D(3) 600 mg calcium- 200 unit Capsule 1 tab PO QAM Rx Instructions: PER PT "CAN'T SWALLOW". levothyroxine 25 mcg tablet 25 mcg PO QAM ferrous sulfate 325 mg (65 mg iron) tablet 325 mg PO UD Patient Comments: every other day losartan 25 mg tablet 25 mg PO QAM cyanocobalamin (vitamin B-12) 1,000 mcg capsule 1,000 mcg PO QAM Rx Instructions: buy over the counter Discontinued ciprofloxacin HCl [Cipro] 250 mg tablet 250 mg PO BID Qty: 14 0RF Discharge Orders: Discharge Order (Routine); Ordered 01/26/23 Ordered By: Oleksandr Valdes Admission Data Admit Date/Time: 01/25/23 18:41 Attending Provider: Oleksandr Valdes Admit Provider: Nishant Chris Primary Care Provider: Best Leal Other Providers: Nishant Chris; Vita Rowell; Kendrick Lou; Maliha Dai; Melo Hunt; Ilsa Villatoro; Jazz Barakat; Jazmine Dubon; Ines France; Delmi Cordero; Shelia Nicole Other Interventions: Discharge Summary Assessment (RN) Last Done: 01/26/23 14:13 Coding Level of Care Code 86344 INP/OBS DISCH >30 MIN Diagnoses Complicated UTI (urinary tract infection) N39.0 Hx of prostatic malignancy Z85.46 HTN (hypertension) I10 Hypothyroidism E03.9
[2023-01-26] MEDS ORDERED: DAPTOmycin 300 MG in SYRINGE 0 ML IV SCH (18:00)
[2023-01-27] MEDS ORDERED: FERROUS SULFATE 325 MG TAB PO SCH (09:00)
== END 2023-01-26 14:14 | disposition home or self-care (01) ==
LOC: ED 14:44 → EDINP 14:44 → SUATTDRO 18:41 → 3N 22:51

== ENCOUNTER 2023-01-31 05:08 | Observation (INO) ==
--- NOTE | 2023-01-25 16:08 | Anesthesiology Consultation ---
Date of Service January 25, 2023 Assessment & Plan (1) Encounter for pre-operative examination: - Infectious disease screening: Per assessment on 01/25/23: No known infectious disease contacts or current infectious disease symptoms. No noted Covid positive test result in past 90 days. - Recent DVT: * RLE DVT on 12/31/22 doppler, f/u venous doppler study 01/04/23 noted "Currently there is normal compressibility of the deep venous system from the common femoral vein through the proximal calf veins, previously noted right peroneal deep venous thrombus appears resolved." * Per [place] discharge summary 01/04/23, DVT "asymptomatic and detected during fever workup, peroneal vein. provoked by hospitalization. was not on chemoprophylaxis because of hematuria.. had trial anticoagulation with apixaban 01/01 pm and this was a failure - quickly developed recurrent gross hematuria and clots within hours of single dose, which took 48h to clear again.. planned strategy of serial duplex to follow calf DVT, discussed today with Dr. Leal who also discussed with vascular surgeon. Plan was for repeat duplex today then in 2 weeks. Repeat duplex today showed NO RLE DVT, thus further follow up not needed. Perhaps was not present to begin with (just nonvisualization of veins) or has resolved." - PCP visit 01/15/23 [place]: "Patient appears to be managing OK at home post discharge with regard to his catheter care. He does not have home nursing and doesn't want the help. He has been compliant with discontinuation of aspirin and celebrex due to his gross hematuria. Compliant with iron supplement. Most recent Hgb 9.7. Will recheck CBC today. Creatinine was as high as 5.2. Recheck CMP today. Remainder of labs as previously ordered. He will follow up here as scheduled for routine visit 02/04/23. He has urology appointment 01/22/23 for kate removal and likely cystoscopy to evaluate for source of hematuria. Repeat RLE u/s for DVT was NEGATIVE prior to discharge so no repeat u/s will be ordered today. Plan to follow up as scheduled." - Urology visit 01/21/23 [place]: "Patient had been hospitalized with infection retention inability to void and hematuria. Increasing bother. Patient has history of prostate cancer has had lower urinary tract issues. Has increased in severity. Discussed different options. Underwent scope today.. Patient continues to be able to void will likely be able to hold off on replacing the catheter. 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 Patient wants to have an option as soon as possible to open up the restriction as well as to do with the ongoing bleeding." - [place] ER visit 01/23/23: Constipation + urinary retention complaints. > Cipro rx r/t UA/urine culture findings. Kate catheter placed. Advised to f/u with urology. OTC recommendations regarding constipation provided. > Urology aware of recent ER visit* - Check CBC DOS (Hgb 12.3 on 01/15/23 labs. Drop to 10.5 on POC labs done in [place] ER 01/23/23 in setting of hematuria. Will update DOS) - Patient acceptable risk for given surgery pending evaluation DOS. Chart Review Chart Review: Patient NOT seen in Pre Admission Testing History Surgery Operation Date: 01/31/23 08:00 Proposed Procedures p TURP (Transurethral Resection of the Prostate) - Adolfo Barbour, Height/Weight Height: 5 ft 10 in Weight: 97.522 kg Allergies Allergy/AdvReac Type Severity Reaction Status Date / Time No Known Drug Allergies Allergy Verified 01/25/23 13:43 Medications Home Medications Medication Instructions Recorded Confirmed Last Taken calcium carbonate 600 mg-vitamin 1 tab PO QAM 04/08/18 01/25/23 12/22/22 D3 5 mcg (200 unit) capsule (Calcium 600 + D(3)) indapamide 1.25 mg tablet 1.25 mg PO QAM #90 tabs 04/23/22 01/25/23 12/22/22 sulfasalazine 500 mg tablet 2,000 mg (4 x 500 mg) PO BID #720 08/08/22 01/25/23 12/22/22 tabs ciprofloxacin HCl 250 mg tablet 250 mg PO BID #14 tabs 01/23/23 01/25/23 Unknown (Cipro) cyanocobalamin (vitamin B-12) 1,000 mcg PO QAM 01/25/23 01/25/23 Unknown 1,000 mcg capsule ferrous sulfate 325 mg (65 mg 325 mg PO UD 01/25/23 01/25/23 Unknown iron) tablet levothyroxine 25 mcg tablet 25 mcg PO QAM 01/25/23 01/25/23 Unknown losartan 25 mg tablet 25 mg PO QAM 01/25/23 01/25/23 Unknown Past Medical History Medical History Kate catheter present [place] ER visit 01/22/2023 kate catheter placed and present History of COVID-19 2021, mild symptoms Deep vein thrombosis (DVT) of calf muscle vein of right lower extremity RLE DVT on 12/31/22 doppler, f/u venous doppler study 01/04/23 noted "Currently there is normal compressibility of the deep venous system from the common femoral vein through the proximal calf veins, previously noted right peroneal deep venous thrombus appears resolved." Acute renal failure (ARF) 12/2022, resolved Intermittent gross hematuria Hypothyroidism History of colon polyps Tubulovillous adenoma resected 2009 Lumbosacral radiculopathy Hx of prostatic malignancy Polyneuropathy Neurological symptoms HTN (hypertension) Past Family History Family History Mother HX: breast cancer Breast cancer Father DM II (diabetes mellitus, type II), controlled Benign essential HTN Brother Diabetes Hypertension Sister Cancer , unknown type Other No family history of adverse response to anesthesia No family history of bleeding disorder Denies family history of Ovarian cancer Prostate cancer Myocardial infarction Colorectal cancer Past Surgical History Surgical History History of tonsillectomy and adenoidectomy Hx of cataract surgery Social History Smoking Status: Never smoker Do You Dip or Chew Tobacco: No Hx Alcohol Use: No alcohol intake frequency: holidays/special occasions only Hx Substance Use: No Lab Results Anesthesia Preop Results Results Anesthesia Widget: WBC 9.11 K/ul (4.8-10.8) 01/15/23 Hgb 12.3 g/dl (14.0-18.0) L 01/15/23 Hct 37.2 % (42.0-52.0) L 01/15/23 Plt 360 K/uL (130-400) 01/15/23 Na 137 mmol/L (136-145) 01/15/23 K 3.9 mmol/L (3.5-5.1) 01/15/23 Cl 101 mmol/L (98-107) 01/15/23 CO2 27 mmol/L (21-32) 01/15/23 BUN 18 mg/dl (6-23) 01/15/23 Creat 1.26 mg/dl (0.6-1.4) 01/15/23 Glucose Level 117 mg/dl (70-99(Fasting)) H 01/15/23 PT 12.3 Seconds (9.0-12.0) H 12/24/22 PTT 27.4 Seconds (21.0-31.0) 12/24/22 INR 1.1 (0.9-1.1) 12/24/22 TSH 1.850 uIu/ml (0.300-4.500) 01/15/23 HA1c 5.9 % (4.5-5.6) H 01/15/23 Urine Color Dark Yellow 01/23/23 Urine Appearance Cloudy (Clear) A 01/23/23 Urine pH 6.5 (4.5-7.5) 01/23/23 Urine Specific [place] 1.018 (1.000-1.030) 01/23/23 Urine Protein 2+ (Negative) H 01/23/23 Urine Glucose (UA) Negative (Negative) 01/23/23 Urine Ketones Negative (Negative) 01/23/23 Urine Blood 3+ (Negative) H 01/23/23 Urine Nitrite Positive (Negative) A 01/23/23 Urine Bilirubin Negative (Negative) 01/23/23 Urine Urobilinogen Negative (Negative) 01/23/23 Urine Leukocyte Esterase 1+ (Negative) H 01/23/23 Urine WBC (Auto) 10-30 /hpf (0-5) H 01/23/23 Urine RBC (Auto) >30 /hpf (0-4) H 01/23/23 Urine Hyaline Casts (Auto) 1-5 /lpf (0-5) 01/23/23 Urine Epithelial Cells (Auto) 0-5 /lpf (0-5) 01/23/23 Urine Bacteria (Auto) Negative (Negative) 01/23/23 Urine Yeast Present (None Prsent) A 01/23/23 Coronavirus OC43 (PCR) Not Detected (NotDetected) 01/01/23 Coronavirus HKU1 (PCR) Not Detected (NotDetected) 01/01/23 Coronavirus 229E (PCR) Not Detected (NotDetected) 01/01/23 COVID-19 PCR Not Detected (NotDetected) 01/01/23 Coronavirus NL63 (PCR) Not Detected (NotDetected) 01/01/23 Testing Laboratory Results 01/23/23 POC labs H/H .07/18 SODIUM 140 POTASSIUM 3.5 CHLORIDE 102 CO2 24 BUN 21 CREATININE 1.3 GLUCOSE 143 01/23/23 Urine culture (01/23/23)- coag negative staphylococcus, aditya albicans/dubliniesis Electrocardiogram Date: 12/24/22 NSR at 94bpm. LAD. iRBBB. No significant change compared to 04/08/2018 per underwater hunter trapper comparison. Chest X-Ray Date: 12/30/22 FINDINGS: There are low lung volumes. No pneumothorax. No pleural effusions. No new focal lung consolidations to suggest a pneumonia. No evidence for pulmonary edema. The cardiac silhouette is normal in size. IMPRESSION: No acute process. Echocardiogram Date: 12/28/22 EF 60-65%. No RWMA. Mild cLVH. No significant valvular disease.
[2023-01-31 05:51] LABS: Basophils # (auto) 0.04 K/uL (0.00-0.20); Basophils % (auto) 0.4 %; Eosinophils # (auto) 0.14 K/uL (0.00-0.50); Eosinophils % (auto) 1.4 %; Hematocrit (blood only) 34.1 % (42.0-52.0); Hemoglobin 11.3 g/dl (14.0-18.0); Immature Granulocytes # (auto) 0.03 K/uL (0.01-0.20); Immature Granulocytes % (auto) 0.3 %; Lymphocytes # (auto) 2.12 K/uL (1.20-3.40); Lymphocytes % (auto) 21.3 %; Mean Corpuscular Hemoglobin 30.9 pg (25.0-34.0); Mean Corpuscular Hgb Conc 33.1 g/dL (32.0-36.0); Mean Corpuscular Volume 93.2 fL (80.0-100.0); Monocytes # (auto) 1.37 K/uL (0.11-0.59); Monocytes % (auto) 13.8 %; Neutrophils # (auto) 6.23 K/uL (1.40-6.50); Neutrophils % (auto) 62.8 %; Platelet Count 199 K/uL (130-400); RDW Coefficient of Variation 14.8 % (11.5-14.5); RDW Standard Deviation 51.2 fL (36.4-46.3); Red Blood Count 3.66 M/uL (4.70-6.10); White Blood Count 9.93 K/ul (4.8-10.8)
[2023-01-31] MEDS ORDERED: ceFAZolin 2000MG 2,000 MG/15 ML SYR IV SCH ×2 (06:00→15:00)
[2023-01-31] MEDS ORDERED: LR 15ML/HR IV SCH (06:00)
[2023-01-31] MEDS ORDERED: ONDANSETRON INJ 2 MG/ML 2 ML VIAL ONE (06:43)
[2023-01-31] MEDS ORDERED: PROPOFOL IV EMULSION 10 MG/ML 20 ML VIAL IV ONE (06:43)
[2023-01-31] MEDS ORDERED: fentaNYL citrate PF 100 MCG/2 ML VIAL ONE ×2 (06:43→07:57)
[2023-01-31] MEDS ORDERED: LIDOCAINE 2% 2 ML VIAL/AMP(20MG/ML) INFIL ONE (06:43)
--- NOTE | 2023-01-31 06:51 | History & Physical Bridge Note ---
Date of Service January 31, 2023 History & Physical Bridge Note I have examined the patient, reviewed the History & Physical and in the interval since the performance of the History & Physical I have noted the following changes of clinical significance: no changes noted
[2023-01-31] MEDS ORDERED: MoRPHine SULFATE 2 MG/ML CARP IV PRN (06:57)
[2023-01-31] MEDS ORDERED: oxyBUTYnin chloride 5 MG TAB PO PRN (06:57)
[2023-01-31] MEDS ORDERED: PHENAZOPYRIDINE HCL 200 MG TAB PO PRN (06:57)
[2023-01-31] MEDS ORDERED: oxyCODONE/ACETAMINOPHEN 5mg/325mg TAB PO PRN (06:57)
[2023-01-31] MEDS ORDERED: ONDANSETRON INJ 2 MG/ML 2 ML VIAL IV PRN ×2 (06:57→07:47)
[2023-01-31] MEDS ORDERED: ATROPINE SULFATE 0.1 MG/ML 10ML SYR IV PRN (07:47)
[2023-01-31] MEDS ORDERED: NALOXONE HCL 0.4 MG/1 ML VIAL/CARP IV PRN (07:47)
[2023-01-31] MEDS ORDERED: ePHEDrine sulfate 50 MG/ML AMP IV PRN (07:47)
[2023-01-31] MEDS ORDERED: PROMETHAZINE HCL 12.5 MG in SODIUM CHLORIDE 0.9% 50 ML IV PRN (07:47)
[2023-01-31] MEDS ORDERED: fentaNYL citrate PF 100 MCG/2 ML VIAL IV PRN (07:47)
[2023-01-31] MEDS ORDERED: LABETALOL HCL IV 5 MG/ML 20ML IV PRN (07:47)
[2023-01-31] MEDS ORDERED: PHENYLEPHRINE 100MCG/ML 10ML SYR IV ONE (08:11)
--- NOTE | 2023-01-31 08:16 | Operative Report ---
PG Post Operative Report Pre & Post Diagnosis Operation Date: 01/31/23 07:00 Pre-Op Diagnosis: Prostate enlargement Post-Op Diagnosis: Prostate enlargement I identified the patient and participated in the time-out.: Yes Procedure Operation Date: 01/31/23 07:00 Actual Procedures p Transurethral Resection of the Prostate, Transurethral Resection of Bladder Tumor, large, Clot evacuation. Fulguration of Bladder lesions x 6 - Adolfo Barbour, Surgeon Adolfo Barbour, II, DO Washing Tub Operator None Estimated Blood Loss 5 Findings Consistent with Post-Op Diagnosis Large Prostate with obstruction from large median lobe/nodule within prostatic urethra. Clot in base of bladder irrigated clear. Large tumor of the base/posterior wall approx 7.2 cm in area resected. Approx 6 areas of edematous changes of the dome/left posterior wall fulgurated. Specimens Prostate adenoma. Bladder tumor Drains 22Fr Coude Catheter Anesthesia Type General Complications none Disposition Disposition: Recovery Room Indications Patient with obstruction due to prostate enlargement. Large clot within bladder at time of scope. Risks and benefits discussed at length. Description of Procedure Patient was consented and brought back to the operating room. Patient was placed under anesthesia in the supine position and moved to the dorsal lithotomy position. Patient was prepped and draped in the regular sterile fashion. A time out was completed. A 30degree Cystoscope was placed into the bladder and the entire bladder was examined. The UO's were identified as well as the bladder neck, trigone, dome, and the other important landmarks. The prostatic urethra and large lobes/adenoma was assessed and the veru and bladder neck identified and area/size was assessed. Old appearing blood clots were found within the base of the bladder. These were irrigated out. Upon irrigation of the blood clots a bladder tumor was discovered along the posterior wall/base of the bladder. Tumor appeared to be large had multiple areas of very vascular and easily bleeding/friable areas. Did appear to have intermittently been experiencing active bleeding from the tumor. Additionally on the posterior wall/dome there were multiple areas of what appeared to be edematous changes likely from the catheterization. These also appear to be somewhat irritated and had some small areas of ulceration. Very large vascular vessels coming from the trigone region into the bladder tumor at the base. Within the prostatic urethra there was a large nodule of tissue in the median lobe causing considerable obstruction of the bladder neck and prostatic urethra. Moderate enlargement of the lateral lobes. The ureters were found to be e dematous and irritated with the trigone region appearing irritated throughout. The resection scope was placed and the fine bipolar loop was selected. Due to the large nodule at the bladder neck that was easily bleeding and obstructing the prostatic urethra this had to be resected first in order to better access the bladder tumor for resection. Starting at the 5 and 7 o'clock positions, a channel was created from bladder neck to the veru. Additional tissue on the lateral edges of the prostate were resected as well. The channel was drastically improved with resection of the large median lobe tissue. The Specimen was removed and sent for analysis. The resection bed and any bleeding areas were fulgurated/cauterized and the entire area inspected. All bleeding was controlled. With the channel better formed and access to the bladder improved the large tumor on the posterior wall was assessed. The tumor was resected. The surrounding tissue had a large amount of vascular appearing tissue. This was fulgurated around the base of the tumor. The tumor had been completely resected. This was sent for pathologic analysis. Additionally the areas of irritation/edematous changes at the dome and posterior wall were assessed. These were fulgurated to control any bleeding and other irritative issues. The bladder was inspected a final time. No additional tumors lesions or areas c oncern. No major areas of bleeding. The bladder was emptied and irrigated. All specimen and debris was removed. The scope was removed with the bladder partially full. A catheter was placed and balloon elevated. This was easily irrigated. The patient was cleaned, aroused from anesthesia, and transferred to the pacu in stable condition having tolerated the procedure well with no complications. I was present and participated in all aspects of the procedure. The patient will be monitored in the PACU until transferred. Will plan to monitor overnight with observation. Likely discharge tomorrow with plans to remove catheter in approximately 1 week. Plan to discuss pathology after follow-up I attest to the content of the Intraoperative Record and any orders documented therein. Any exceptions are noted below.
[2023-01-31 08:54] LABS: Basophils # (auto) 0.02 K/uL (0.00-0.20); Basophils % (auto) 0.3 %; Eosinophils # (auto) 0.08 K/uL (0.00-0.50); Eosinophils % (auto) 1.1 %; Hematocrit (blood only) 31.9 % (42.0-52.0); Hemoglobin 10.3 g/dl (14.0-18.0); Immature Granulocytes # (auto) 0.02 K/uL (0.01-0.20); Immature Granulocytes % (auto) 0.3 %; Lymphocytes # (auto) 1.37 K/uL (1.20-3.40); Lymphocytes % (auto) 18.1 %; Mean Corpuscular Hemoglobin 30.3 pg (25.0-34.0); Mean Corpuscular Hgb Conc 32.3 g/dL (32.0-36.0); Mean Corpuscular Volume 93.8 fL (80.0-100.0); Mean Platelet Volume 9.7 fL (9.4-12.4); Monocytes # (auto) 0.99 K/uL (0.11-0.59); Monocytes % (auto) 13.1 %; Neutrophils # (auto) 5.09 K/uL (1.40-6.50); Neutrophils % (auto) 67.1 %; Platelet Count 156 K/uL (130-400); RDW Coefficient of Variation 14.8 % (11.5-14.5); RDW Standard Deviation 51.5 fL (36.4-46.3); White Blood Count 7.57 K/ul (4.8-10.8)
[2023-01-31 09:07] LABS: Albumin Level 3.2 gm/dl (3.4-5.0); BUN Creatinine Ratio 11.5 (10-20); Bilirubin,Total 0.4 mg/dl (0.2-1.0); Calcium 8.9 mg/dl (8.6-10.3); Creatinine Clr Calc Pharmacy 50.1 ml/min; Est GFR (African American) 66.4 ml/min; Est GFR (Non-African American) 57.3 ml/min; Globulin 3.3 gm/dl (2.5-4.0); Potassium 3.9 mmol/L (3.5-5.1); Total Protein 6.5 gm/dl (6.0-8.3)
--- NOTE | 2023-01-31 09:15 | Anesthesiology Progress Note ---
Date of Service January 31, 2023 Anesthesia Post Procedure Vital Signs Vital Signs: Temp Pulse Pulse Resp BP Pulse Ox O2 Del Method 01/31/23 09:00 37.2 C 76 23 161/84 H 98 Room Air 01/31/23 08:50 77 14 155/81 H 98 Room Air 01/31/23 08:40 79 18 148/82 H 97 Room Air 01/31/23 08:30 78 18 145/94 H 100 Oxymask 01/31/23 08:20 36.6 C 79 16 169/83 H 100 Oxymask 01/31/23 05:44 36.9 C 90 20 158/71 H 99 Room Air O2 Flow Rate 01/31/23 09:00 01/31/23 08:50 01/31/23 08:40 01/31/23 08:30 4 01/31/23 08:20 6 01/31/23 05:44 Transfer of Care Handoff Completed per policy Notes Mental Status: alert / awake / arousable Patient Amnestic to Procedure: Yes Nausea / Vomiting: adequately controlled Pain: adequately controlled Airway Patency, RR, SpO2: stable & adequate BP & HR: stable & adequate Hydration State: stable & adequate Anesthetic Complications: no major complications apparent
[2023-01-31] MEDS: LEVOTHYROXINE SODIUM 25 MCG TABLET PO SCH (11:07)
[2023-01-31] MEDS: LOSARTAN POTASSIUM 25 MG TAB PO SCH (12:30)
[2023-01-31] MEDS: SODIUM CHLORIDE 0.9% 1,000 ML IV SCH ×2 (12:30→20:04)
[2023-01-31] MEDS: DOCUSATE SODIUM 100 MG CAP PO SCH ×2 (12:30→20:02)
[2023-01-31] MEDS: INDAPAMIDE 1.25 MG TAB PO SCH (12:31)
[2023-01-31] MEDS: sulfaSALAzine 500 MG TABLET PO SCH ×2 (12:31→20:02)
[2023-01-31] MEDS ORDERED: DOXYCYCLINE HYCLATE 100 MG in DEXTROSE 5% MINI-B 100 ML IV ONE (21:30)
[2023-02-01] MEDS: SODIUM CHLORIDE 0.9% 1,000 ML IV SCH (01:02)
[2023-02-01] MEDS: LEVOTHYROXINE SODIUM 25 MCG TABLET PO SCH (05:31)
[2023-02-01] MEDS: sulfaSALAzine 500 MG TABLET PO SCH (09:16)
[2023-02-01] MEDS: DOCUSATE SODIUM 100 MG CAP PO SCH (09:16)
[2023-02-01] MEDS: LOSARTAN POTASSIUM 25 MG TAB PO SCH (09:17)
[2023-02-01] MEDS: INDAPAMIDE 1.25 MG TAB PO SCH (09:17)
[2023-02-01 09:26] LABS: Basophils # (auto) 0.02 K/uL (0.00-0.20); Basophils % (auto) 0.3 %; Eosinophils # (auto) 0.14 K/uL (0.00-0.50); Eosinophils % (auto) 1.8 %; Hemoglobin 9.9 g/dl (14.0-18.0); Immature Granulocytes # (auto) 0.03 K/uL (0.01-0.20); Immature Granulocytes % (auto) 0.4 %; Lymphocytes # (auto) 1.29 K/uL (1.20-3.40); Lymphocytes % (auto) 16.6 %; Mean Corpuscular Hgb Conc 31.9 g/dL (32.0-36.0); Mean Corpuscular Volume 93.9 fL (80.0-100.0); Mean Platelet Volume 9.9 fL (9.4-12.4); Monocytes # (auto) 0.86 K/uL (0.11-0.59); Monocytes % (auto) 11.1 %; Neutrophils # (auto) 5.42 K/uL (1.40-6.50); Neutrophils % (auto) 69.8 %; Platelet Count 152 K/uL (130-400); RDW Coefficient of Variation 14.6 % (11.5-14.5); RDW Standard Deviation 50.3 fL (36.4-46.3); White Blood Count 7.76 K/ul (4.8-10.8)
--- NOTE | 2023-02-01 09:45 | Urology Progress Note ---
Date of Service February 01, 2023 Assessment & Plan (1) BPH (benign prostatic hyperplasia): (2) Hematuria: Plan - POD #1 s/p Transurethral Resection of the Prostate, Transurethral Resection of Bladder Tumor, large, Clot evacuation. Fulguration of Bladder lesions x [address] Barbour. - Doing well, progressing as expected. - Afebrile and hemodynamically stable. (Tmax 37.9 yesterday evening). - Labs reviewed - WBC 7.76, Hemoglobin 9.9, Creatinine 1.13. - Urine culture 01/25/23 grew coag negative staph. On IV Doxycycline. - Holly draining clear yellow urine. Plan- - Continue diet - Continue antibiotics - Maintain Holly catheter - Encourage ambulation - Continue supportive care and pain management as needed. - Anticipate home with Holly catheter later today presuming urine appropriate and he continues to progress as expected Admission and Anticipated Discharge Date Admission Date: January 31, 2023 Subjective Pt examined at bedside this AM. Awake, resting in bed on arrival. No acute distress. Denies fevers, chills, nausea, or vomiting. Tolerating diet. Holly draining clear yellow urine. No reported pain. Overall feeling well and eager to go home today. Review of Systems Constitutional: as per Subjective / HPI Gastrointestinal: as per Subjective / HPI Genitourinary: + as per Subjective / HPI Physical Exam Constitutional: well developed and well nourished; no acute distress Respiratory: normal respiratory effort; no respiratory distress and no labored breathing Musculoskeletal: Head/Neck/Chest: normocephalic Skin: No visible rashes or lesions to exposed skin areas Neurologic: awake Psychiatric: A+Ox3, euthymic affect Genitourinary: Holly draining clear yellow urine Results & Data Vital Signs (Past 12 Hours) Vital Signs Temp Pulse Resp BP Pulse Ox O2 Del Method 02/01/23 07:46 37.0 C 77 16 138/73 95 Room Air 02/01/23 03:29 37.1 C 82 18 148/69 H 95 Room Air 01/31/23 23:27 37.2 C 85 18 130/63 98 Room Air PG Care Time/CCT Total # of Minutes Spent Total Time Spent with Patient: Total time spent is greater than 50% in coordination of care (as documented) at patient's floor/unit and/or counseling patient: Coding Level of Care Code None Diagnoses BPH (benign prostatic hyperplasia) N40.0 Hematuria R31.0 Hematuria type: gross (2) Hematuria Hematuria type: gross Qualified Code(s): R31.0 - Gross hematuria
[2023-02-01] MEDS ORDERED: DOXYCYCLINE HYCLATE 100 MG in DEXTROSE 5% MINI-B 100 ML IV SCH (10:00)
[2023-02-01 10:29] LABS: BUN Creatinine Ratio 11.5 (10-20); Calcium 8.5 mg/dl (8.6-10.3); Creatinine Clr Calc Pharmacy 50.1 ml/min; Est GFR (African American) 66.4 ml/min; Est GFR (Non-African American) 57.3 ml/min; Potassium 3.8 mmol/L (3.5-5.1)
--- NOTE | 2023-02-01 14:10 | Discharge Summary ---
Date of Service February 01, 2023 Admission HPI Per Admitting Provider 87-year-old male with a history of prostate enlargement and hematuria who presents for transurethral resection of the prostate Admission Exam Per Admitting Provider General: Alert in no acute distress. HEENT: Normocephalic Atraumatic. Inspection normal. Psychologic: Normal affect. Respiratory: Nonlabored. Cardiovascular: No tachycardia Skin: [place] and Dry. Principal Diagnosis Gross hematuria, BPH Discharge Exam Constitutional well developed and well nourished; no acute distress Respiratory normal respiratory effort; no respiratory distress and no labored breathing Musculoskeletal Head/Neck/Chest: normocephalic Neurologic awake Psychiatric A+Ox3, euthymic affect Genitourinary Holly draining clear yellow urine Discharge Data Allergies Allergy/AdvReac Type Severity Reaction Status Date / Time No Known Drug Allergies Allergy Verified 01/31/23 05:33 Procedures Performed Operation Date: 01/31/23 07:00 Actual Procedures p Transurethral Resection of the Prostate, (Not Applicable) - Adolfo Barbour DO s Transurethral Resection of Bladder Tumor(Not Applicable) - Adolfo Barbour DO Hospital Course (1) BPH (benign prostatic hyperplasia): (2) Hematuria: Plan 87-year-old male admitted s/p TURP and TURBT with Dr. Barbour. Patient tolerated procedure well. No acute issues postoperatively. Remained afebrile and hemodynamically stable. Labs appropriate WBC of 7.76, hemoglobin 9.9, creatinine 1.13. Holly draining appropriately, urine was clear yellow. He ambulated without issue. Tolerated diet. Reported no pain. He was discharged home on postop day #1 with a Holly catheter in place. He was in stable condition at time of discharge. All discharge instructions were reviewed. Total Time Total Time Spent Total Time Spent (In Minutes): 15 Discharge Plan Discharge Items Patient Disposition: Home - Self-Care Reason For Visit: GROSS HEMATURIA, BLADDER OUTLET OBSTRUCTION Discharge Diagnosis: Gross hematuria, Bladder outlet obstruction Activity: Per Instructions section Lifting: No more than 25 pounds Bathing Comment: Ok to shower. No tub baths or soaks. Sexual Activity: Wait until after follow-up appointment Exercise/Sports: Wait until after follow-up appointment Driving/Machine Use: Do not drive if taking prescription pain medication Non-emergency contact: Surgeon and Urologist Call non-emergency contact if: you have any medication questions, your symptoms worsen, your pain is not controlled, your pain is worsening and you have a fever Follow-up/Referrals: Best Leal MD [Primary Care Provider] - Adolfo Barbour DO [Physician] - Diet: Regular Addtl Attending Provider Instructions: Please take all medications as prescribed and keep all follow-ups as scheduled. Please call our office at [phone] with any questions, concerns or need to reschedule appointments for any reason. We are happy to assist you. Tips for your recovery at home: Dont be alarmed by brownish or reddish blood or clots in your urine. This is a result of the procedure. This may occur off and on for weeks to months after the procedure but should continue to improve. Drink plenty of fluids during the day (enough to keep your urine very light colored). This will help keep a healthy flow of urine. Do not lift >25 lbs until your followup Avoid constipation. Please use a stool softener (Colace) for the first two weeks after your procedure Be sure to finish the antibiotics as prescribed. If you go home with a catheter, please wash tubing where it enters your body twice daily with mild soap (Dove or Dial). Once your catheter is removed, expect some blood in your urine and some burning when you urinate. You should have an appointment to have this removed, if you do not please call our office to arrange. When to call [facility] at [phone]: Your urine contains heavy blood clots or your catheter stops draining You are constantly leaking urine Fever of 101F or higher, chills, nausea, or vomiting Your pain is not relieved with medication Pending Studies at Discharge: Yes (pathology) Stand-Alone Forms: My [facility] [employer], Smoking Cessation Medications and DC Order Prescriptions: New doxycycline hyclate 100 mg tablet 100 mg PO BID 7 Days Qty: 14 0RF Continued indapamide 1.25 mg tablet 1.25 mg PO QAM Qty: 90 3RF sulfasalazine 500 mg tablet 2,000 mg PO BID Qty: 720 3RF Calcium 600 + D(3) 600 mg calcium- 200 unit Capsule 1 tab PO QAM Rx Instructions: PER PT "CAN'T SWALLOW". levothyroxine 25 mcg tablet 25 mcg PO QAM ferrous sulfate 325 mg (65 mg iron) tablet 325 mg PO UD Patient Comments: every other day losartan 25 mg tablet 25 mg PO QAM cyanocobalamin (vitamin B-12) 1,000 mcg capsule 1,000 mcg PO QAM Rx Instructions: buy over the counter Discharge Orders: Discharge Order (Routine); Ordered 02/01/23 Ordered By: Amanda Campos Admission Data Admit Date/Time: 01/31/23 06:57 Attending Provider: Adolfo Barbour Admit Provider: Adolfo Barbour Primary Care Provider: Best Leal Other Interventions: Discharge Summary Assessment (RN) Last Done: 02/01/23 13:14 Coding Level of Care Code 32506 IN/OBS DISCH 30 MIN/LESS Diagnoses BPH (benign prostatic hyperplasia) N40.0 Hematuria R31.0 Hematuria type: gross
== END 2023-02-01 13:57 | disposition home or self-care (01) ==
LOC: 3E 05:08 → ASU 05:08